=== PATIENT | female | born 1975 | race Caucasian/White ===

== ENCOUNTER → 2017-05-31 | Outpatient (REF) | payer BC ==
[2017-06-02 14:17] LABS: HPV HYBRID CAPTURE II Negative (Negative)
== END ==
LOC: M LAB REF 17:46
DX: Z12.4 Encounter for screening for malignant neoplasm of cervix (principal)
CPT/HCPCS: G0123

== ENCOUNTER → 2017-06-17 | Outpatient (CLI) | payer BC ==
[2017-06-17 12:15] LABS: FREE T4 1.01 NG/DL (0.76-1.46)
== END ==
LOC: M LAB 10:44
DX: Z12.31 Encounter for screening mammogram for malignant neoplasm of breast (principal); R92.8 Other abnormal and inconclusive findings on diagnostic imaging of breast; N83.202 Unspecified ovarian cyst, left side; R63.5 Abnormal weight gain; N92.0 Excessive and frequent menstruation with regular cycle
CPT/HCPCS: 76856

== ENCOUNTER → 2017-07-01 | Outpatient (CLI) | payer BC | LOC: M RAD 12:10 | DX: R92.0 Mammographic microcalcification found on diagnostic imaging of breast (principal) | CPT/HCPCS: 77065 ==

== ENCOUNTER → 2017-07-27 | Outpatient (CLI) | payer BC ==
[~2017-07-27] MED LIST: LIDOCAINE 1% MDV 20ML VIAL As Ordered
== END ==
LOC: M RADPRO 11:59
DX: D05.12 Intraductal carcinoma in situ of left breast (principal); R92.0 Mammographic microcalcification found on diagnostic imaging of breast (principal)
CPT/HCPCS: 19081

== ENCOUNTER → 2017-08-16 | Outpatient (CLI) | payer BC | LOC: M RADPRO 13:20 | DX: R92.1 Mammographic calcification found on diagnostic imaging of breast (principal); Z79.899 Other long term (current) drug therapy | CPT/HCPCS: 19081 ==

== ENCOUNTER → 2017-08-16 | Day surgery (SDC) | payer BC ==
[~2017-08-16] MED LIST changes: +BUPIVACAINE HCL 0.25% 30 ML VIAL As Ordered; +LIDOCAINE 1% SDV INJ 30 ML VIAL As Ordered
[2017-08-16 07:41] LABS: CONTROL LINE UCG INT CTR LINE PRESENT; URINE PREG TEST NEGATIVE (NEGATIVE)
[2017-08-16] MEDS: LIDOCAINE 5% (LIDODERM) PATCH TD (08:00)
[2017-08-16] MEDS: LR 1,000 ML IV (08:01)
== END | disposition home or self-care (01) ==
LOC: M SDC 06:56
DX: D05.12 Intraductal carcinoma in situ of left breast (principal); Z53.09 Procedure and treatment not carried out because of other contraindication
CPT/HCPCS: 84703

== ENCOUNTER → 2017-09-01 | Outpatient (CLI) | payer BC ==
[~2017-09-01] MED LIST changes: -BUPIVACAINE HCL 0.25% 30 ML VIAL As Ordered; -LIDOCAINE 1% SDV INJ 30 ML VIAL As Ordered; +LIDOCAINE 5% (LIDODERM) PATCH As Ordered; +LR 1,000 ML IV
[2017-09-01] MEDS: LIDOCAINE 5% (LIDODERM) PATCH TD (09:56)
[2017-09-01 10:24] LABS: CONTROL LINE UCG INT CTR LINE PRESENT; URINE PREG TEST NEGATIVE (NEGATIVE)
== END ==
LOC: M RADPRO 08:49
DX: D05.90 Unspecified type of carcinoma in situ of unspecified breast (principal); Z53.29 Procedure and treatment not carried out because of patient's decision for other reasons
CPT/HCPCS: 77065

== ENCOUNTER 2017-09-07 08:46 | Day surgery (SDC) | payer BC ==
[2017-09-07] MEDS ORDERED: LIDOCAINE 5% (LIDODERM) PATCH As Ordered (08:59)
[2017-09-07] MEDS ORDERED: LR 1,000 ML IV ×2 (09:15→16:45)
[2017-09-07] MEDS: LIDOCAINE 5% (LIDODERM) PATCH TD (09:19)
[2017-09-07 09:40] LABS: CONTROL LINE UCG INT CTR LINE PRESENT; URINE PREG TEST NEGATIVE (NEGATIVE)
[2017-09-07] MEDS ORDERED: fentaNYL 250 MCG/5 ML INJECTION (J3010) As Ordered (10:35)
[2017-09-07] MEDS ORDERED: PROPOFOL 200 MG/20 ML VIAL As Ordered (10:35)
[2017-09-07] MEDS ORDERED: MIDAZOLAM INJ 2 MG/2 ML VIAL (J2250) As Ordered (10:35)
[2017-09-07] MEDS ORDERED: ROCURONIUM BROMIDE 50 MG/5 ML VIAL As Ordered (10:35)
[2017-09-07] MEDS ORDERED: LIDOCAINE 2% INJ 100 MG/5 ML SDV (FOR ANES.) As Ordered (10:35)
[2017-09-07] MEDS ORDERED: LIDOCAINE 1% MDV 20ML VIAL As Ordered (11:03)
[2017-09-07] MEDS: LIDOCAINE 1% SDV INJ 30 ML VIAL As Ordered (12:24)
[2017-09-07] MEDS ORDERED: ONDANSETRON 4MG/2ML VIAL (J2405) As Ordered (13:21)
[2017-09-07] MEDS ORDERED: dexameTHASONE 4 MG/ML 1ML VIAL (J1100) As Ordered (13:21)
[2017-09-07] MEDS ORDERED: ePHEDrine SULFATE 25 MG/5 ML(5MG/ML) SYRINGE As Ordered (13:26)
[2017-09-07] MEDS ORDERED: GLYCOPYRROLATE INJ 0.2 MG/ML 2 ML VIAL As Ordered ×2 (13:27)
[2017-09-07] MEDS ORDERED: HYDROmorphone HCL 2 MG/ML 1ML VIAL (J1170) As Ordered (14:09)
[2017-09-07] MEDS: BUPIVACAINE LIPOSOME/PF 1.3% 20 ML VIAL (13.3MG/ML)(EXPAREL) As Ordered (16:03)
[2017-09-07] MEDS: BUPIVACAINE HCL 0.25% 30 ML VIAL As Ordered (16:03)
[2017-09-07] MEDS ORDERED: ACETAMINOPHEN TAB 650MG DOSE (2X325MG) PO (16:45)
[2017-09-07] MEDS ORDERED: fentaNYL 100 MCG/2 ML INJECTION (J3010) IV (16:45)
[2017-09-07] MEDS ORDERED: ONDANSETRON 4MG/2ML VIAL (J2405) IV (16:45)
[2017-09-07] MEDS ORDERED: NORCO, ANEXSIA 5/325MG TABLET (HYDROcodone/ACETAMINOPHEN) PO (16:45)
[2017-09-07] MEDS: PERCOCET 5MG/325MG TAB PO (17:25)
== END 2017-09-07 19:49 | disposition home or self-care (01) ==
LOC: M SDC 08:46
DX: D05.12 Intraductal carcinoma in situ of left breast (principal); D09.0 Carcinoma in situ of bladder
CPT/HCPCS: 19120

== ENCOUNTER → 2017-10-06 | Outpatient (CLI) | payer BC | LOC: M ONCR 13:56 | DX: D05.12 Intraductal carcinoma in situ of left breast (principal) | CPT/HCPCS: G0463 ==

== ENCOUNTER → 2017-11-03 | Outpatient (CLI) | payer BC | LOC: M RAD 14:19 | DX: C50.912 Malignant neoplasm of unspecified site of left female breast (principal) ==

== ENCOUNTER → 2018-11-24 | Outpatient (REF) | payer BC ==
[~2018-11-24] MED LIST changes: +AMBI10TA PO; -LIDOCAINE 1% MDV 20ML VIAL As Ordered; -LIDOCAINE 5% (LIDODERM) PATCH As Ordered; -LR 1,000 ML IV; +MULT1TAB10 PO
[2018-11-24 12:47] LABS: BASO % 0.8 % (0.0-1.0); EOS # 0.2 10^3/uL (0.0-0.50); HEMATOCRIT 32.8 % (36.0-47.0); HEMOGLOBIN 10.1 g/dl (12.0-15.5); LYMPH # 1.2 10^3/uL (1.5-4.5); LYMPH % 32.9 % (24.0-44.0); MEAN CORPUSCULAR HEMOGLOBIN 27.2 pg (27.0-33.0); MEAN CORPUSCULAR HGB CONC 30.8 g/dl (32.0-36.5); MEAN CORPUSCULAR VOLUME 88.2 fl (80.0-96.0); MONO # 0.3 10^3/uL (0.0-0.8); MONO % 8.1 % (0.0-5.0); NEUTROPHILS # 1.9 10^3/uL (1.8-7.7); NEUTROPHILS % 52.6 % (36.0-66.0); PLATELET COUNT, AUTOMATED 290 10^3/uL (150-450); RED BLOOD COUNT 3.72 10^6/uL (4.00-5.40); WHITE BLOOD COUNT 3.6 10^3/uL (4.0-10.0)
[2018-11-24 13:19] LABS: ALBUMIN 3.5 GM/DL (3.2-5.2); ALT/SGPT 16 U/L (12-78); BILIRUBIN,TOTAL 0.4 MG/DL (0.2-1.0); BLOOD UREA NITROGEN 15 MG/DL (7-18); CALCIUM LEVEL 8.9 MG/DL (8.5-10.1); CARBON DIOXIDE LEVEL 28 MEQ/L (21-32); CHLORIDE LEVEL 111 MEQ/L (98-107); CHOLESTEROL LEVEL 191 MG/DL (<200); CHOLESTEROL RISK RATIO 2.938 (<5); CREATININE FOR GFR 0.77 MG/DL (0.55-1.30); FREE T4 1.05 NG/DL (0.76-1.46); GLOMERULAR FILTRATION RATE > 60.0 (>58); GLUCOSE, FASTING 87 MG/DL (70-100); HDL CHOLESTEROL 65 MG/DL (>40); LDL CHOLESTEROL 110 MG/DL (<100); NON-HDL-C 126 MG/DL; POTASSIUM SERUM 4.1 MEQ/L (3.5-5.1); SODIUM LEVEL 143 MEQ/L (136-145); TOTAL PROTEIN 7.1 GM/DL (6.4-8.2); TRIGLYCERIDES LEVEL 79 MG/DL (<150)
[2018-11-24 13:24] LABS: TOTAL 25(OH) VITAMIN D 64.4 NG/ML (30.0-100.0)
== END ==
LOC: M LABDRAW1 12:09
PROVIDERS: ATTEND Family Medicine
DX: Z13.29 Encounter for screening for other suspected endocrine disorder (principal); Z13.0 Encounter for screening for diseases of the blood and blood-forming organs and certain disorders involving the immune mechanism; Z13.220 Encounter for screening for lipoid disorders; Z85.3 Personal history of malignant neoplasm of breast

== ENCOUNTER → 2018-12-15 | Outpatient (CLI) | payer BC, OTHER | LOC: M LAB 10:25 | PROVIDERS: ATTEND Nurse Practitioner | DX: E55.9 Vitamin D deficiency, unspecified (principal) ==

== ENCOUNTER → 2018-12-15 | Outpatient (CLI) | payer BC, OTHER ==
[2018-12-15 12:42] LABS: FOLATE 21.4 NG/ML
== END ==
LOC: M LAB 10:21
PROVIDERS: ATTEND Family Medicine
DX: D64.9 Anemia, unspecified (principal)

== ENCOUNTER → 2019-11-28 | Outpatient (REF) | payer BC, OTHER | LOC: M LAB REF 08:41 | PROVIDERS: ATTEND Family Medicine | DX: R30.0 Dysuria (principal) ==

== ENCOUNTER → 2020-04-19 | Outpatient (REF) | payer SELFPAY | LOC: EDSTATUS 09:15 → M LABSMTC 09:25 | PROVIDERS: ATTEND Pediatrics | DX: Z20.828 Contact with and (suspected) exposure to other viral communicable diseases (principal) ==

== ENCOUNTER → 2020-06-06 | Outpatient (CLI) | payer BC, OTHER ==
[2020-06-06 12:27] LABS: EOS # 0.2 10^3/uL (0.0-0.5); EOS % 4.1 % (0.0-3.0); HEMATOCRIT 37.9 % (36.0-47.0); HEMOGLOBIN 11.9 g/dl (12.0-15.5); LYMPH # 1.2 10^3/uL (1.5-5.0); LYMPH % 27.9 % (24.0-44.0); MEAN CORPUSCULAR HEMOGLOBIN 28.9 pg (27.0-33.0); MEAN CORPUSCULAR HGB CONC 31.4 g/dl (32.0-36.5); MONO # 0.3 10^3/uL (0.0-0.8); MONO % 7.7 % (2.0-8.0); NEUTROPHILS # 2.4 10^3/uL (1.5-8.5); NEUTROPHILS % 58.6 % (36.0-66.0); PLATELET COUNT, AUTOMATED 236 10^3/uL (150-450); RED BLOOD COUNT 4.12 10^6/uL (4.00-5.40); WHITE BLOOD COUNT 4.2 10^3/uL (4.0-10.0)
[2020-06-06 12:29] LABS: INR 0.93; PROTHROMBIN TIME 12.7 SECONDS (12.5-14.3)
[2020-06-06 14:39] LABS: FOLLICLE STIMULATING HORMONE 55.7 mIU/mL; HCG, SERUM QUANTITATIVE < 1.0 MIU/ML; LUTEINIZING HORMONE 65.5 mIU/mL; PROLACTIN 9.7 NG/ML; THYROID STIMULATING HORMONE 0.725 uIU/ML (0.358-3.740)
[2020-06-06 15:06] LABS: CA 125 24.7 U/ML (<30.2)
[2020-06-08 15:09] LABS: F8 ACTIVITY FOR F8 PANEL 116 % (56-140); F8 ACTIVITY vWB FOR F8 PANEL 119 % (50-200); F8 ANTIGEN FOR F8 PANEL 149 % (50-200)
== END ==
LOC: M PLALAB 09:46
PROVIDERS: ATTEND Obstetrics & Gynecology
DX: D39.11 Neoplasm of uncertain behavior of right ovary (principal); D25.9 Leiomyoma of uterus, unspecified; N92.0 Excessive and frequent menstruation with regular cycle

== ENCOUNTER → 2020-11-18 | Outpatient (REF) | payer BC, OTHER | LOC: M LAB REF 17:42 | PROVIDERS: ATTEND Family Medicine | DX: N39.41 Urge incontinence (principal) ==

== ENCOUNTER → 2020-12-24 | Outpatient (CLI) | payer BC, OTHER ==
--- NOTE | 2020-12-24 14:56 | REP ---
INDICATION: HTN. COMPARISON: Comparison is made with pelvic sonography and MRI scanning dated March 06, 2020 and April 28, 2020 respectively. TECHNIQUE: Urinary tract sonography. Renal artery Doppler assessment FINDINGS: . scanning of the level of the urinary bladder demonstrates a complex cystic structure is superior and to the left of the urinary bladder measuring 7.1 x 5.6 x 5.6 cm. Complex ovarian cyst suspected. Smaller cysts were noted previously. No bladder mass lesion is observed. Renal cortical echogenicity pattern is normal bilaterally and contours are smooth. There is no evidence of hydronephrosis, cyst, mass, or calculus in either kidney. The right kidney measures 10.3 x 3.5 x 5.4 cm. Left renal dimensions are 11.9 x 5.7 x 6.0 cm. Renal artery Doppler: Peak systolic flow velocity in the abdominal aorta at the level of the main renal arteries is normal measured at 99 centimeters/second. Peak systolic flow velocity in the right main renal artery is recorded at 131 centimeters/second and that in the left is recorded at 114 centimeters/second. These values are normal. Renal to aortic flow velocity ratios are therefore normal, 1.3 on the right and 1.2 on the left. Resistive indices and acceleration times are measured in the intralobar arteries of the upper, mid, and lower of each kidney in these values are normal bilaterally. IMPRESSION: There is a complex 7.1 cm cystic lesion in the pelvis consistent with a complex ovarian cystic mass. Otherwise negative urinary tract sonography. There is no Doppler evidence to suggest renal artery stenosis. <Electronically signed by Stuart Beasley > 12/24/20 [id number]
== END ==
LOC: M RAD 07:39
PROVIDERS: ATTEND Family Medicine
DX: I10 Essential (primary) hypertension (principal)

== ENCOUNTER → 2021-01-13 | Outpatient (CLI) | payer BC, OTHER ==
[2021-01-13 13:23] LABS: BASO # 0.1 10^3/uL (0.0-0.2); BASO % 1.1 % (0.0-1.0); EOS # 0.1 10^3/uL (0.0-0.5); EOS % 2.7 % (0.0-3.0); HEMATOCRIT 38.3 % (36.0-47.0); HEMOGLOBIN 12.6 g/dl (12.0-15.5); LYMPH # 1.3 10^3/uL (1.5-5.0); LYMPH % 29.6 % (24.0-44.0); MEAN CORPUSCULAR HEMOGLOBIN 29.3 pg (27.0-33.0); MEAN CORPUSCULAR HGB CONC 32.9 g/dl (32.0-36.5); MEAN CORPUSCULAR VOLUME 89.1 fl (80.0-96.0); MONO # 0.4 10^3/uL (0.0-0.8); MONO % 7.9 % (2.0-8.0); NEUTROPHILS # 2.6 10^3/uL (1.5-8.5); PLATELET COUNT, AUTOMATED 257 10^3/uL (150-450); WHITE BLOOD COUNT 4.4 10^3/uL (4.0-10.0)
[2021-01-13 14:31] LABS: ALBUMIN 3.8 GM/DL (3.2-5.2); ALT/SGPT 14 U/L (12-78); BILIRUBIN,TOTAL 0.4 MG/DL (0.2-1.0); BLOOD UREA NITROGEN 13 MG/DL (7-18); CALCIUM LEVEL 9.2 MG/DL (8.5-10.1); CARBON DIOXIDE LEVEL 26 MEQ/L (21-32); CHLORIDE LEVEL 107 MEQ/L (98-107); CHOLESTEROL LEVEL 211 MG/DL (<200); CHOLESTEROL RISK RATIO 2.971 (<5); CREATININE FOR GFR 0.77 MG/DL (0.55-1.30); FERRITIN 15 NG/ML (8-252); FREE T4 1.03 NG/DL (0.76-1.46); GLOMERULAR FILTRATION RATE > 60.0 (>58); GLUCOSE, FASTING 91 MG/DL (70-100); HDL CHOLESTEROL 71 MG/DL (>40); IRON (FE) 72 UG/DL (50-170); LDL CHOLESTEROL 128 MG/DL (<100); NON-HDL-C 140 MG/DL; PERCENT SATURATION 21.1 % (13.2-45.0); POTASSIUM SERUM 4.1 MEQ/L (3.5-5.1); SODIUM LEVEL 139 MEQ/L (136-145); THYROID STIMULATING HORMONE 0.795 uIU/ML (0.358-3.740); TOTAL 25(OH) VITAMIN D 18.4 NG/ML (30.0-100.0); TOTAL IRON BINDING CAPACITY 342 UG/DL (250-450); TOTAL PROTEIN 7.5 GM/DL (6.4-8.2); TRIGLYCERIDES LEVEL 61 MG/DL (<150); VITAMIN B12 LEVEL 347 PG/ML (247-911)
[2021-01-14 16:13] LABS: Lyme Disease IgG/IgM Antibodie <0.91 ISR (0.00-0.90); Lyme Disease IgM Ab Quantitati <0.80 index (0.00-0.79)
== END ==
LOC: M PLALAB 10:51
PROVIDERS: ATTEND Family Medicine
DX: Z13.0 Encounter for screening for diseases of the blood and blood-forming organs and certain disorders involving the immune mechanism (principal); Z13.29 Encounter for screening for other suspected endocrine disorder; Z13.220 Encounter for screening for lipoid disorders; I10 Essential (primary) hypertension; R53.83 Other fatigue; A69.20 Lyme disease, unspecified

== ENCOUNTER → 2021-02-28 | Outpatient (CLI) | payer BC, OTHER ==
[~2021-02-28] MED LIST changes: +ERGO500029 PO; +HYDR-3363 PO; +LISI20TA33 PO; +THERTAB52 PO; +VALS1TAB67 PO; +VITA200016 PO; +VYVA40CA3 PO; +ZOLP12.518 PO
== END ==
LOC: M LABSMTC 09:49
PROVIDERS: ATTEND Anesthesiology
DX: Z01.812 Encounter for preprocedural laboratory examination (principal); Z20.822 Contact with and (suspected) exposure to COVID-19

== ENCOUNTER 2021-03-05 10:15 | Day surgery (SDC) | payer BC, OTHER ==
[~2021-03-05] VITALS: Ht 165.1 cm; Wt 81.2 kg
[~2021-03-05 10:15] MED LIST changes: +NS 1,000 ML IV ONE
--- OUTSIDE RECORDS SUMMARY | 2021-03-05 10:23 | CCD ---
Continuity of Care Document (CCD) Created on: 03/02/2021 Kayla Partida External Reference #: [id number] : [id number] Sex: Female Author Author Kayla WEEKS D.O. Organization Unknown Address [address] [place] [address] Phone [phone] Care Team Providers [facility] Techn[facility] Name Role Phone Leona Weeks D.O. AUTM Gallo Linn MD AUTM [phone] Mason Hernandez M.D. AUTM [phone] Stefano Varghese M.D. AUTM [phone] Problems Active Problems Provider Date Disorder of respiratory system Leona Weeks D.O. On set: 08/08/2014 Malaise and fatigue Leona Weeks D.O. Onset: 2014 Abnormal weight gain Leona Weeks D.O. Onset: 08/08 Headache Leona Weeks D.O. Onset: 2014 Insomnia Leona Weeks D.O. Onset: 2014 Hypersomnia Leona Weeks D.O. Onset: 2014 Disorder of soft tissue Leona Weeks D.O. Onset: Constipation Leona Weeks D.O. Onset: 2014 Chronic fatigue syndrome Leona Weeks D.O. Onset: 1 04/20/2014 pTis: Ductal carcinoma in situ (breast) Leona Weeks D.O. Onset: 08/29/2017 Note: left breast Attention deficit hyperactivity disorder, predominantl y inattentive type MANOJ Green Onset: 07/28/2020 Social History Type Date Description Comments Sex Unknown ETOH Use Currently consumes alcohol 2-3 d rinks on the weekend Tobacco Use Start: Unknown Patient has never smoked Recreational Drug Use Denies Drug Use Smoking Status Reviewed: 01/06/21 Patient has never smoked Exercise Type/Frequency weights and cardio 2-3 t imes per week Allergies and adverse reactions Active Allergies Criticality Reaction | Severity Comments Date Lisinopril Unable to assess criticality Hives 01/28/2021 Inactive Allergies NKDA Unable to assess criticality 08/08/2014 Medications Active Medications SIG Qnty Indications Ordering Provide r Date Vitamin B-12 Natural 500mcg Tablets 1 by mouth every day 90tabs D51.9 Leona Weeks D.O. 01/28/2021 Vitamin D (Ergocalciferol) 1.25mg (33746 Ut) Capsules 1 capsule weekly for 12 weeks 12caps E55.9 Mark Weeks D.O. 01/28/2021 Vitamin D3 50mcg (2000 Ut) Capsule s 1 by mouth every day 90caps E55.9 Leona Weeks D.O. 01/28 Valsartan 160mg Tablets 1 by mouth every day 90tabs Leona Weeks D.O. 01/28 Vyvanse 40mg Capsules take one capsule every morning by mouth istop: [id number] 30caps F90.0 Kiera Bishop.O. 08/25/2020 Hydroxyzine HCL 25mg Tablets 1-2 tablet by mouth every night 90tabs Kiera Madison.O. 03/2021 Zolpidem Tartrate ER 12.5mg Tablet s ER take one tablet by mouth every day before bed maximum daily dose = 1 tablet istop: [id number] 30tabs G47.00 Juan F MadisonO. 03/3 Fluticasone Propionate Nasal [place] 50mcg/Act Suspension two sprays each nostril once daily 29.7ml H65.02 Kiera Lott.O. 04/17/2019 Colace 100mg Capsules 1 by mouth every day as needed 90caps Leona Weeks D.O. 12/15 History Medications Lisinopril 20mg Tablets 1 by mouth every day 90tabs I10 Leona Weeks D.O. 01/06 - 01/28/2021 Lisinopril 10mg Tablets 1 by mouth every day 30tabs I10 Leona Weeks D.O. 12/09 - 01/06/2021 Macrobid 100mg Capsules take one capsule by mouth twice a day for 7 days 14caps Leona martinez D.O. 11/21/2020 - 12/09/2020 Immunizations Description No Information Available Vital Signs Date Vital Result Comment 03/02/2021 1:00pm BP Systolic 136 mmHg BP Diastolic 72 mmHg Height 65 inches 5'5" Weight 182.50 lb BMI (Body Mass Index) 30.4 kg/m2 Heart Rate 72 /min Respiratory Rate 18 /min Body Temperature 98.6 F O2 % BldC Oximetry 100 % [place] Body Weight 125 lb 01/28/2021 1:36pm BP Systolic 130 mmHg BP Diastolic 78 mmHg Height 65 inches 5'5" Weight 178.00 lb BMI (Body Mass Index) 29.6 kg/m2 Heart Rate 75 /min Respiratory Rate 18 /min Body Temperature 98.3 F O2 % BldC Oximetry 99 % [place] Body Weight 125 lb Results Test Acquired Date Facility Test Result H/L Range Note Coronavirus 2019 Nasopharygeal 02/28/2021 [facility] Outpa tient Testing (Registration) [address] [place] [address] [phone] Coronavirus 2019 Nasopharygeal ASSAY INFORMATIO <SEE N OTE> 1 CBC With Differential 01/13/[address] [id number] [phone] White Blood Count 4.4 10 Normal 4.0-10.0 Red Blood Count 4.30 10 Normal 4.00-5.40 Hemoglobin 12.6 g/dL Normal 12.0-15.5 Hematocrit 38.3 % Normal 36.0-47.0 Mean Corpuscular Volume 89.1 fl Normal 80.0-96.0 Mean Corpuscular Hemoglobin 29.3 pg Normal 27.0-33.0 Mean Corpuscular HGB Conc 32.9 g/dL Normal 32.0-36.5 Red Cell Distribution Width 12.6 % Normal 11.5-14.5 Platelet Count, Automated 257 10 Normal 150-450 Neutrophils % 58.0 % Normal 36.0-66.0 Lymph % 29.6 % Normal 24.0-44.0 Castro % 7.9 % Normal 2.0-8.0 Eos % 2.7 % Normal 0.0-3.0 Baso % 1.1 % High 0.0-1.0 Immature Granulocyte % 0.7 % Normal 0-3.0 Nucleated Red Blood Cell % 0.0 % Normal 0-0 Neutrophils # 2.6 10 Normal 1.5-8.5 Lymph # 1.3 10 Low 1.5-5.0 Castro # 0.4 10 Normal 0.0-0.8 Eos # 0.1 10 Normal 0.0-0.5 Baso # 0.1 10 Normal 0.0-0.2 Comprehensive Metabolic Profil 01/13/[address] [address] [phone] Glucose, Fasting 91 mg/dL Normal 70-100 Blood Urea Nitrogen 13 mg/dL Normal 7-18 Creatinine For GFR 0.77 mg/dL Normal 0.55-1.30 Glomerular Filtration Rate > 60.0 Normal >58 2 Sodium Level 139 mEq/L Normal 136-145 Potassium Serum 4.1 mEq/L Normal 3.5-5.1 Chloride Level 107 mEq/L Normal 98-107 Carbon Dioxide Level 26 mEq/L Normal 21-32 Anion Gap 6 mEq/L Low 8-16 Calcium Level 9.2 mg/dL Normal 8.5-10.1 Ast/Sgot 12 U/L Normal 7-37 Alt/SGPT 14 U/L Normal 12-78 Alkaline Phosphatase 48 U/L Normal 45-117 Bilirubin,Total 0.4 mg/dL Normal 0.2-1.0 Total Protein 7.5 GM/DL Normal 6.4-8.2 Albumin 3.8 GM/DL Normal 3.2-5.2 Albumin/Globulin Ratio 1.0 Low 1.2-2.2 Lipid Panel 01/13/2021 [facility] nter [address] [place] [address] [phone] Triglycerides Level 61 mg/dL Normal <150 Cholesterol Level 211 mg/dL High <200 HDL Cholesterol 71 mg/dL Normal >40 LDL Cholesterol 128 mg/dL High <100 Non-HDL-C 140 mg/dL Normal Cholesterol Risk Ratio 2.971 Normal <5 Laboratory test finding 01/13/[address] [address] [phone] Total 25(Oh) Vitamin D 18.4 NG/ML Low 30.0-100. 0 Lyme Disease SCRN With Confirm 01/13/[address] [address] [phone] Lyme Disease IgG/IgM Antibodie <0.91 ISR Normal 0 .00-0.90 3 Lyme Disease IgM Ab Quantitati <0.80 index Normal 0.00-0.79 4 Laboratory test finding 01/13/[address] [address] [phone] Ferritin 15 NG/ML Normal 8-252 Vitamin B12 Level 347 pg/mL Normal 247-911 5 Total Iron Binding Capacit 01/13/[address] [address] [phone] Iron (Fe) 72 g/dL Normal 50-170 Total Iron Binding Capacity 342 g/dL Normal 250-450 Percent Saturation 21.1 % Normal 13.2-45.0 Laboratory test finding 01/13/[address] [address] [phone] Thyroid Stimulating Hormone 0.795 uIU/ML Normal 0. 358-3.740 Free T4 1.03 ng/dL Normal 0.76-1.46 Inhouse Ua 11/18/2020 Inhouse Inhouse Leukocytes neg Inhouse Nitrite neg Inhouse Urobilinogen neg Inhouse Protein neg Inhouse PH 6 Inhouse Hemoglobin neg Inhouse Specific [place] 0.010 Inhouse Ketones neg Inhouse Bilirubin neg Inhouse Glucose neg Laboratory test finding 11/18/[address] [address] [phone] Urine Culture FULL REPORT IN L <SEE NOTE> Normal 6 1 ASSAY INFORMATION: Real Time RT-PCR NOTE: The COVID-19 assay has been cleared by the U.S. Food and Drug Administration under the Emergency Use Authorization (EUA). [facility] are designated as high complexity laboratories by the Clinical Laboratory Improvement Amendments of 1988(CLIA) and are qualified to perform this test. Not Detected 2 Units are mL/min/1.73 m2 Chronic Kidney Disease Staging per NKF: Stage I & II GFR >=60 Normal to Mildly Decreased Stage III GFR 30-59 Moderately Decreased Stage IV GFR 15-29 Severely Decreased Stage V GFR <15 Very Little GFR Left ESRD GFR <15 on CREDIT REVIEW ANALYST 3 Negative <0.91 Equivocal 0.91 - 1.09 Positive >1.09 4 Negative <0.80 Equivocal 0.80 - 1.19 Positive >1.19 . IgM levels may peak at 3-6 weeks post infection, then gradually decline. Performed at: RN - [facility] [address] [id number] Wrapping Machine Tender: Lissy Pacheco MD, Phone: [phone] VITAMIN B12 NORMAL RANGE NORMAL 247 - 911 PG/ML INDETERMINATE 211 - 246 PG/ML DEFICIENT LESS THAN 211 PG/ML 6 FULL REPORT IN LAB NOTES ([facility] and [facility]). ORGANISM 1: ESCHERICHIA COLI COLONY COUNT >100,000 ORGANISM 1: ESCHERICHIA COLI ESCHERICHIA COLI: REACTION TRIMETHOPRIM/SULFAMETHOXAZOLE IV 160mg TMP & 800mg SMXq6h <=20 S TRIMETHOPRIM/SULFAMETHOXAZOLE PO Bactrim DS Bid <=20 S AMPICILLIN IV 500mg q6h <=2 S AMPICILLIN PO 500mg q6h fasting <=2 S GENTAMICIN IV 80mg q8h <=1 S NITROFURANTOIN PO 100mg BID <=16 S CEFAZOLIN IV 1gm q8h <=4 S LEVOFLOXACIN IV 500mg qd <=0.12 S LEVOFLOXACIN PO 250mg qd <=0.12 S LEVOFLOXACIN PO 500mg qd <=0.12 S TOBRAMYCIN IV 80mg q8h <=1 S CEFTRIAXONE IV 1gm q24h <=1 S CEFTAZIDIME IV 1gm q8h <=1 S AMPICILLIN/SULBACTAM IV 1.5g q6h <=2 S PIPERACILLIN/TAZOBACTAM IV 2.25 gm q6h <=4 S AZTREONAM IV 1gm q8h <=1 S ERTAPENEM IV 1gm qd <=0.5 S MEROPENEM IV 1 gm q8h <=0.25 S MEROPENEM IV 500 mg q8h <=0.25 S TIGECYCLINE IV 50mg q12h <=0.5 S CEFEPIME IV 1 gm q12h <=1 S CEFEPIME IV 2 gm q12h <=1 S EXTD BRD SPCTRM BETA LACTAMASE IV NEGATIVE FOR ESBL Procedures Date Code Description Status 03/02/2021 09129 Office/Outpatient Established Lo w MDM 20-29 Min Completed 01/28/2021 49115 Office/Outpatient Established Mo d MDM 30-39 Min Completed 01/06/2021 72036 Office/Outpatient Established Mo d MDM 30-39 Min Completed 12/09/2020 41249 Office/Outpatient Established Lo w MDM 20-29 Min Completed 11/18/2020 98806 Preventive Visit Est 40-64 Yrs C ompleted 11/18/2020 54725 Office/Outpatient Established Lo w MDM 20-29 Min Completed Medical Devices Description No Information Available Encounters Type Date Location Provider Dx Diagnosis Office Visit 03/02/2021 1:00p [facility] Jasvir Weeks D.OEmperatriz I10 Essential (primary) hyperten eleni E55.9 Vitamin D deficiency, unspec ified D51.9 Vitamin B12 deficiency anemi a, unspecified F90.0 Attn-defct hyperactivity dis order, predom inattentive type Z85.3 Personal history of malignan t neoplasm of breast N83.202 Unspecified ovarian cyst, le ft side Office Visit 01/28/2021 1:30p [facility] Leona Weeks D.OEmperatriz L50.0 Allergic urticaria I10 Essential (primary) hyperten eleni E55.9 Vitamin D deficiency, unspec ified D51.9 Vitamin B12 deficiency anemi a, unspecified Office Visit 01/06/2021 2:40p [facility] Leona Weeks, D.O. I10 Essential (primary) hyperten eleni R53.83 Other fatigue F90.0 Attn-defct hyperactivity dis order, predom inattentive type F32.81 Premenstrual dysphoric disor bobby Z85.3 Personal history of malignan t neoplasm of breast N83.202 Unspecified ovarian cyst, le ft side R68.82 Decreased libido Office Visit 12/09/2020 1:30p [facility] Jasvir Weeks D.O. I10 Essential (primary) hyperten eleni R53.83 Other fatigue Office Visit 11/18/2020 4:00p [facility] w Jasvir Weeks D.O. Z00.01 Encounter for general adult medical exam w abnormal findings F90.0 Attn-defct hyperactivity dis order, predom inattentive type F32.81 Premenstrual dysphoric disor bobby G47.00 Insomnia, unspecified Z85.3 Personal history of malignan t neoplasm of breast Z12.11 Encounter for screening for malignant neoplasm of colon R03.0 Elevated blood-pressure read ing, w/o diagnosis of htn Z13.220 Encounter for screening for lipoid disorders Z13.29 Encounter for screening for oth suspected endocrine disorder Z13.0 Encntr screen for dis of the bld/bld-form org/immun mechnsm N39.41 Urge incontinence Assessments Date Code Description Provider 03/02/2021 I10 Essential (primary) hypertension Leona Weeks D.OEmperatriz 03/02/2021 E55.9 Vitamin D deficiency, unspecifie d Leona Weeks D.O. 03/02/2021 D51.9 Vitamin B12 deficiency anemia, u nspecified Leona Hernandez D.OEmperatriz 03/02/2021 F90.0 Attention-deficit hy peractivity disorder, predominantly inattentive type Leona Weeks D.O. 03/02/2021 Z85.3 Personal history of malignant ne oplasm of breast Leona Hernandez D.OEmperatriz 03/02/2021 N83.202 Unspecified ovarian cyst, left s arnoldo Leona Weeks D.O. 01/28/2021 L50.0 Allergic urticaria Leona Lemon -Mary, D.O. 01/28/2021 I10 Essential (primary) hypertension Leona Lemon-Mary, D.O. 01/28/2021 E55.9 Vitamin D deficiency, unspecifie d Leona Lemon-Mary, D.O. 01/28/2021 D51.9 Vitamin B12 deficiency anemia, u nspecified Leona Lemon- Mary, D.O. 01/06/2021 I10 Essential (primary) hypertension Leona Gutierrezno-Mary, D.O. 01/06/2021 R53.83 Other fatigue Leonamariya Lemon-Zelaya rber, D.O. 01/06/2021 F90.0 Attention-deficit hy peractivity disorder, predominantly inattentive type Leona Ion-Mary, D.O. 01/06/2021 F32.81 Premenstrual dysphoric disorder Leona Ion-Mary, D.O. 01/06/2021 Z85.3 Personal history of malignant ne oplasm of breast Leonamariya BloomIonMaico Hernandez, D.O. 01/06/2021 N83.202 Unspecified ovarian cyst, left s arnoldo Leonamariya BloomIon-Mary, D.O. 01/06/2021 R68.82 Decreased libido Leonamariya RogersS camden, D.O. 12/09/2020 I10 Essential (primary) hypertension Leonamariya Lemon-Mary, D.O. 12/09/2020 R53.83 Other fatigue Leonamariya Gutierrezno-Zelaya rber, D.O. 11/18/2020 Z00.01 Encounter for genera l adult medical examination with abnormal findings Leona IonWillian, D.O. 11/18/2020 F90.0 Attention-deficit hy peractivity disorder, predominantly inattentive type Leona Ion-Mary, D.O. 11/18/2020 F32.81 Premenstrual dysphoric disorder Leona Gutierrezno-Mary, D.O. 11/18/2020 G47.00 Insomnia, unspecified Leona Ku D.O. 11/18/2020 Z85.3 Personal history of malignant ne oplasm of breast Leona Hernandez D.O. 11/18/2020 Z12.11 Encounter for screening for eagle gnant neoplasm of colon Leona Weeks D.O. 11/18/2020 R03.0 Elevated blood-press ure reading, without diagnosis of hypertension Leona Weeks D.O. 11/18/2020 Z13.220 Encounter for screening for lipo id disorders Leona Hernandez D.O. 11/18/2020 Z13.29 Encounter for screen ing for other suspected endocrine disorder Leona Weeks D.O. 11/18/2020 Z13.0 Encounter for screen ing for diseases of the blood and blood- forming organs and certain disorders involving the immune mechanism Leona Weeks D.O. 11/18/2020 N39.41 Urge incontinence Leona Hernandez D.O. Plan of Treatment Future Appointment(s):* 06/12/2021 1:00 pm - Leona Weeks D.O. at [facility] 03/02/2021 - Leona Weeks D.O.* I10 Essential (primary) hypertension* Comments:* BP improved and no rash with valsartan * E55.9 Vitamin D deficiency, unspecified* Comments:* continue vitamin D * D51.9 Vitamin B12 deficiency anemia, unspecified* Comments:* continue B12 * F90.0 Attention-deficit hyperactivity disorder, predominantly inattentive type * Comments:* stable on vyvanse * Follow up:* 3 months * Z85.3 Personal history of malignant neoplasm of breast * N83.202 Unspecified ovarian cyst, left side* Comments:* There is a 7.1 cm complex cystic mass on the left ovary. She is going to be scheduled for surgery with Dr. Hernandez at the end of March. He suspects endometriosis. Functional Status Description No Information Available Mental Status Description No Information Available Referrals Refer to Reason for Referral Status Appt Date Mason Hernandez M.D. This is a mutual patient who underwent hysterectomy in 06/2020 and now presents with 7.1 cm complex ovarian mass. She has a history of breast cancer as well. Please evaluate and treat. [facility]osed [facility] [address] [place] [address] [phone] Stefano Varghese M.D. This is a 45 year old female with history of breast cancer. She has never had colonoscopy and given her history, screening at 45 seems prudent. Please evaluate and treat. Sent 12/29/2020 [address] [place] [address] [phone]
--- OUTSIDE RECORDS SUMMARY | 2021-03-05 10:23 | CCD ---
Continuity of Care Document (CCD) Created on: 03/02/2021 Kayla Partida External Reference #: [id number] : 1975 Sex: Female Author Author Kayla WEEKS D.O. Organization Unknown Address [address] [facility] [address] [place] [address] Phone [phone] Care Team Providers Care Retoucher Photoengraving Name Role Phone Leona Weeks D.O. AUTM Gallo Linn MD AUTM [phone] Mason Hernandez M.D. AUTM [phone] Stefano Varghese M.D. AUTM [phone] Problems Active Problems Provider Date Disorder of [...] Weeks D.O. 01/28/2021 Vitamin D (Ergocalciferol) 1.25mg (07380 Ut) Capsules 1 capsule weekly for 12 weeks 12caps E55.9 Mark Weeks D.O. 01/28/2021 Vitamin D3 50mcg (2000 Ut) Capsule s 1 by mouth every day 90caps E55.9 Leona Weeks D.O. 01/28 Valsartan 160mg Tablets 1 by mouth every day 90tabs Leona Weeks D.O. 01/28 Vyvanse 40mg Capsules take one capsule every morning by mouth istop: [id number] 30caps F90.0 Kiera Bishop.O. 08/25/2020 Hydroxyzine HCL 25mg Tablets 1-2 tablet by mouth every night 90tabs Kiera Madison.O. 03/2021 Zolpidem Tartrate ER 12.5mg Tablet s ER take one tablet by mouth every day before bed maximum daily dose = 1 tablet istop: [id number] 30tabs G47.00 Juan F MadisonO. 03/3 Fluticasone Propionate Nasal [place] 50mcg/Act Suspension two sprays each nostril once [...] Available Vital Signs Date Vital Result Comment 01/28/2021 1:36pm BP Systolic 130 mmHg BP Diastolic 78 mmHg Height 65 inches 5'5" Weight 178.00 lb BMI (Body Mass Index) 29.6 kg/m2 Heart Rate 75 /min Respiratory Rate 18 /min Body Temperature 98.3 F O2 % BldC Oximetry 99 % [place] Body Weight 125 lb 01/06/2021 2:33pm BP Systolic 140 mmHg BP Diastolic 90 mmHg Height 65 inches 5'5" Weight 181.38 lb BMI (Body Mass Index) 30.2 kg/m2 Heart Rate 78 /min Respiratory Rate 14 /min Body Temperature 98.5 F O2 % BldC Oximetry 99 % [place] Body Weight 125 lb Results Test Acquired Date Facility Test Result H/L Range Note Coronavirus 2019 Nasopharygeal 02/28/2021 [facility] Outpa tient Testing (Registration) [address] [place] [address] [id number] [phone] Coronavirus 2019 Nasopharygeal ASSAY INFORMATIO <SEE N OTE> 1 CBC With Differential 01/13/[address] [id number] [phone] White Blood Count 4.4 10 Normal 4.0-10.0 [...] 36.0-66.0 Lymph % 29.6 % Normal 24.0-44.0 [place] % 7.9 % Normal 2.0-8.0 Eos % 2.7 % Normal 0.0-3.0 Baso % 1.1 % High 0.0-1.0 Immature Granulocyte % 0.7 % Normal 0-3.0 Nucleated Red Blood Cell % 0.0 % Normal 0-0 Neutrophils # 2.6 10 Normal 1.5-8.5 Lymph # 1.3 10 Low 1.5-5.0 [place] # 0.4 10 Normal 0.0-0.8 Eos # 0.1 10 Normal 0.0-0.5 Baso # 0.1 10 Normal 0.0-0.2 Comprehensive Metabolic Profil 01/13/[address] [address] [phone] Glucose, Fasting 91 mg/dL Normal 70-100 Blood [...] Ratio 1.0 Low 1.2-2.2 Lipid Panel 01/13/2021 [facility]ter [address] [place] [address] [phone] Triglycerides Level 61 mg/dL Normal <150 Cholesterol Level 211 mg/dL High <200 HDL Cholesterol 71 mg/dL Normal >40 LDL Cholesterol 128 mg/dL High <100 Non-HDL-C 140 mg/dL Normal Cholesterol Risk Ratio 2.971 Normal <5 Laboratory test finding 01/13/[address] [address] [phone] Total 25(Oh) Vitamin D 18.4 NG/ML Low 30.0-100. 0 Lyme Disease SCRN With Confirm 01/13/[address] [address] [phone] Lyme Disease IgG/IgM Antibodie <0.91 ISR Normal 0 .00-0.90 3 Lyme Disease IgM Ab Quantitati <0.80 index Normal 0.00-0.79 4 Laboratory test finding 01/13/[address] [address] [phone] Ferritin 15 NG/ML Normal 8-252 Vitamin B12 Level 347 pg/mL Normal 247-911 5 Total Iron Binding Capacit 01/13/[address] [address] [phone] Iron (Fe) 72 g/dL Normal 50-170 Total Iron Binding Capacity 342 g/dL Normal 250-450 Percent Saturation 21.1 % Normal 13.2-45.0 Laboratory test finding 01/13/[address] [address] [phone] Thyroid Stimulating Hormone 0.795 uIU/ML Normal 0. 358-3.740 Free T4 1.03 ng/dL Normal 0.76-1.46 Inhouse Ua 11/18/2020 Inhouse Inhouse Leukocytes neg Inhouse Nitrite neg Inhouse Urobilinogen neg Inhouse Protein neg Inhouse PH 6 Inhouse Hemoglobin neg Inhouse Specific [place] 0.010 Inhouse Ketones neg Inhouse Bilirubin neg Inhouse Glucose neg Laboratory test finding 11/18/[address] [address] [phone] Urine Culture FULL REPORT IN L <SEE NOTE> Normal 6 1 ASSAY INFORMATION: Real Time RT-PCR NOTE: The COVID-19 assay has been cleared by the U.S. Food and Drug Administration under the Emergency Use Authorization (EUA). [employer] and [employer] are designated as high complexity laboratories by [...] Little GFR Left ESRD GFR <15 on VESSEL CAPTAIN 3 Negative <0.91 Equivocal 0.91 - 1.09 Positive >1.09 4 Negative <0.80 Equivocal 0.80 - 1.19 Positive >1.19 . IgM levels may peak at 3-6 weeks post infection, then gradually decline. Performed at: RN - [facility] [address] [id number] Signals Analyst: Lissy Pacheco MD, Phone: [phone] VITAMIN B12 NORMAL RANGE NORMAL 247 [...] FOR ESBL Procedures Date Code Description Status 01/28/2021 51814 Office/Outpatient Established Mo d MDM 30-39 Min Completed 01/06/2021 20633 Office/Outpatient Established Mo d MDM 30-39 Min Completed 12/09/2020 62072 Office/Outpatient Established Lo w MDM 20-29 Min Completed 11/18/2020 04177 Preventive Visit Est 40-64 Yrs C ompleted 11/18/2020 50637 Office/Outpatient Established Lo w MDM 20-29 Min Completed Medical Devices Description No Information Available Encounters Type Date Location Provider Dx Diagnosis Office Visit 01/28/2021 1:30p [facility] Jasvir Weeks D.O. L50.0 Allergic urticaria I10 Essential (primary) hyperten eleni E55.9 Vitamin D deficiency, unspec ified D51.9 Vitamin B12 deficiency anemi a, unspecified Office Visit 01/06/2021 2:40p [facility] Jasvir Weeks D.O. I10 Essential (primary) hyperten eleni R53.83 Other fatigue F90.0 Attn-defct hyperactivity dis order, predom inattentive type F32.81 Premenstrual dysphoric disor bobby Z85.3 Personal history of malignan t neoplasm of breast N83.202 Unspecified ovarian cyst, le ft side R68.82 Decreased libido Office Visit 12/09/2020 1:30p [facility] Kiera Wayne.O. I10 Essential (primary) hyperten eleni R53.83 Other fatigue Office Visit 11/18/2020 4:00p [facility] [place] Leona Weeks D.O. Z00.01 Encounter for general adult [...] Urge incontinence Assessments Date Code Description Provider 01/28/2021 L50.0 Allergic urticaria Leona Barrios D.O. 01/28/2021 I10 Essential (primary) hypertension Leona Weeks D.O. 01/28/2021 E55.9 Vitamin D deficiency, unspecifie d Leona Weeks D.O. 01/28/2021 D51.9 Vitamin B12 deficiency anemia, u nspecified Leona Hernandez, D.O. 01/06/2021 I10 Essential (primary) hypertension Leona Weeks D.O. 01/06/2021 R53.83 Other fatigue Leona martinez D.O. 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 01/06/2021 F32.81 Premenstrual dysphoric disorder Leona Weeks D.O. 01/06/2021 Z85.3 Personal history of malignant ne oplasm of breast Leona Hernandez D.O. 01/06/2021 N83.202 Unspecified ovarian cyst, left s arnoldo Leona Weeks D.O. 01/06/2021 R68.82 Decreased libido Leona Gutierrezno-Adebayo Kiera hannah.OEmperatriz 12/09/2020 I10 Essential (primary) hypertension Leona Weeks D.OEmperatriz 12/09/2020 R53.83 Other fatigue Leona RogersZelaya juan D.O. 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 11/18/2020 F32.81 Premenstrual dysphoric disorder Leona Weeks D.OEmperatriz 11/18/2020 G47.00 Insomnia, unspecified Leona Ku D.O. 11/18/2020 Z85.3 Personal history of malignant ne oplasm of breast Kiera Lott.OEmperatriz 11/18/2020 Z12.11 Encounter for screening for eagle gnant neoplasm of colon Kiera Madison.OEmperatriz 11/18/2020 R03.0 Elevated blood-press ure reading, without diagnosis of hypertension Kiera Madison.OEmperatriz 11/18/2020 Z13.220 Encounter for screening for lipo id disorders Kiera Lott.OEmperatriz 11/18/2020 Z13.29 Encounter for screen ing for other suspected endocrine disorder Kiera Madison.OEmperatriz 11/18/2020 Z13.0 Encounter for screen ing for diseases of the blood and blood- forming organs and certain disorders involving the immune mechanism Leona Weeks D.OEmperatriz 11/18/2020 N39.41 Urge incontinence Kiera Lott.[place] Plan of Treatment No Information Available Functional Status Description No Information Available Mental Status Description No Information Available Referrals Refer to Reason for Referral Status Appt Date Mason Hernandez M.D. This is a mutual patient who underwent hysterectomy in 06/2020 and now presents with 7.1 cm complex ovarian mass. She has a history of breast cancer as well. Please evaluate and treat. Closed 00 / [facility] [address] [facility] [address] [place] [address] [phone] Stefano Varghese M.D. This is a 45 year old female with history of breast cancer. She has never had colonoscopy and given her history, screening at 45 seems prudent. Please evaluate and treat. Sent 12/29/2020 [address] [facility] [address] [place] [address] [phone]
--- OUTSIDE RECORDS SUMMARY | 2021-03-05 10:23 | CCD | Continuity of Care Document ---
Author Author Kayla WEEKS D.O. Organization Unknown Address [address] [employer] [employer] [address] [place] [address] Phone [phone] Care Team Providers Care Cork Wirer Name Role Phone Leona Weeks D.O. AUTM Gallo Linn MD AUTM [phone] Mason Hernandez M.D. AUTM [phone] Stefano Varghese M.D. AUTM [phone] Problems Active Problems Provider Date Disorder of [...] by mouth every day 90tabs D51.9 Leona Weesk D.O. 01/28/2021 Vitamin D (Ergocalciferol) 1.25mg (88109 Ut) Capsules 1 capsule weekly for 12 weeks 12caps E55.9 Mark Weeks D.O. 01/28/2021 Vitamin D3 50mcg (2000 Ut) Capsule s 1 by mouth every day 90caps E55.9 Leona Weeks D.O. 01/28 Valsartan 160mg Tablets 1 by mouth every day 90tabs Leona Weeks D.O. 01/28 Vyvanse 40mg Capsules take one capsule every morning by mouth istop: [id number] 30caps F90.0 Kiera Bishop.O. 08/25/2020 Hydroxyzine HCL 25mg Tablets 1-2 tablet by mouth every night 90tabs Kiera Madison.O. 03/2021 Zolpidem Tartrate ER 12.5mg Tablet s ER take one tablet by mouth every day before bed maximum daily dose = 1 tablet istop: [id number] 30tabs G47.00 Juan F MadisonO. 03/3 Fluticasone Propionate Nasal [place] 50mcg/Act Suspension two sprays each nostril once [...] F O2 % BldC Oximetry 100 % [place] Body Weight 125 lb 01/28/2021 1:36pm BP Systolic 130 mmHg BP Diastolic 78 mmHg Height 65 inches 5'5" Weight 178.00 lb BMI (Body Mass Index) 29.6 kg/m2 Heart Rate 75 /min Respiratory Rate 18 /min Body Temperature 98.3 F O2 % BldC Oximetry 99 % [place] Body Weight 125 lb Results Test Acquired Date Facility Test Result H/L Range Note Coronavirus 2019 Nasopharygeal 02/28/2021 [facility] Outpa tient Testing (Registration) [address] [place] [address] [phone] Coronavirus 2019 Nasopharygeal ASSAY INFORMATIO <SEE N OTE> 1 CBC With Differential 01/13/[address] [id number] [phone] White Blood Count 4.4 10 Normal 4.0-10.0 [...] 36.0-66.0 Lymph % 29.6 % Normal 24.0-44.0 [place] % 7.9 % Normal 2.0-8.0 Eos % 2.7 % Normal 0.0-3.0 Baso % 1.1 % High 0.0-1.0 Immature Granulocyte % 0.7 % Normal 0-3.0 Nucleated Red Blood Cell % 0.0 % Normal 0-0 Neutrophils # 2.6 10 Normal 1.5-8.5 Lymph # 1.3 10 Low 1.5-5.0 [place] # 0.4 10 Normal 0.0-0.8 Eos # 0.1 10 Normal 0.0-0.5 Baso # 0.1 10 Normal 0.0-0.2 Comprehensive Metabolic Profil 01/13/[address] [address] [phone] Glucose, Fasting 91 mg/dL Normal 70-100 Blood [...] Ratio 1.0 Low 1.2-2.2 Lipid Panel 01/13/2021 [facility] nter [address] [place] [address] [phone] Triglycerides Level 61 mg/dL Normal <150 Cholesterol Level 211 mg/dL High <200 HDL Cholesterol 71 mg/dL Normal >40 LDL Cholesterol 128 mg/dL High <100 Non-HDL-C 140 mg/dL Normal Cholesterol Risk Ratio 2.971 Normal <5 Laboratory test finding 01/13/[address] [address] [phone] Total 25(Oh) Vitamin D 18.4 NG/ML Low 30.0-100. 0 Lyme Disease SCRN With Confirm 01/13/[address] [address] [phone] Lyme Disease IgG/IgM Antibodie <0.91 ISR Normal 0 .00-0.90 3 Lyme Disease IgM Ab Quantitati <0.80 index Normal 0.00-0.79 4 Laboratory test finding 01/13/[address] [address] [phone] Ferritin 15 NG/ML Normal 8-252 Vitamin B12 Level 347 pg/mL Normal 247-911 5 Total Iron Binding Capacit 01/13/[address] [address] [phone] Iron (Fe) 72 g/dL Normal 50-170 Total Iron Binding Capacity 342 g/dL Normal 250-450 Percent Saturation 21.1 % Normal 13.2-45.0 Laboratory test finding 01/13/[address] [address] [phone] Thyroid Stimulating Hormone 0.795 uIU/ML Normal 0. 358-3.740 Free T4 1.03 ng/dL Normal 0.76-1.46 Inhouse Ua 11/18/2020 Inhouse Inhouse Leukocytes neg Inhouse Nitrite neg Inhouse Urobilinogen neg Inhouse Protein neg Inhouse PH 6 Inhouse Hemoglobin neg Inhouse Specific [place] 0.010 Inhouse Ketones neg Inhouse Bilirubin neg Inhouse Glucose neg Laboratory test finding 11/18/[address] [address] [phone] Urine Culture FULL REPORT IN L <SEE NOTE> Normal 6 1 ASSAY INFORMATION: Real Time RT-PCR NOTE: The COVID-19 assay has been cleared by the U.S. Food and Drug Administration under the Emergency Use Authorization (EUA). [employer] and [email or web address] are designated as high complexity laboratories by [...] Little GFR Left ESRD GFR <15 on MEDICAL OFFICE COORDINATOR 3 Negative <0.91 Equivocal 0.91 - 1.09 Positive >1.09 4 Negative <0.80 Equivocal 0.80 - 1.19 Positive >1.19 . IgM levels may peak at 3-6 weeks post infection, then gradually decline. Performed at: RN - [facility] [address] [id number] Reception Specialist: Lissy Pacheco MD, Phone: [phone] VITAMIN B12 NORMAL RANGE NORMAL 247 [...] ESBL Procedures Date Code Description Status 03/02/2021 60572 Office/Outpatient Established Lo w MDM 20-29 Min Completed 01/28/2021 42319 Office/Outpatient Established Mo d MDM 30-39 Min Completed 01/06/2021 10750 Office/Outpatient Established Mo d MDM 30-39 Min Completed 12/09/2020 33769 Office/Outpatient Established Lo w MDM 20-29 Min Completed 11/18/2020 81288 Preventive Visit Est 40-64 Yrs C ompleted 11/18/2020 08789 Office/Outpatient Established Lo w MDM 20-29 Min Completed Medical Devices Description No Information Available Encounters Type Date Location Provider Dx Diagnosis Office Visit 03/02/2021 1:00p [facility] Jasvir Weeks D.OEmperatriz I10 Essential (primary) hyperten eleni E55.9 Vitamin D deficiency, unspec ified D51.9 Vitamin B12 deficiency anemi a, unspecified 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 I10 Essential (primary) hyperten eleni R53.83 Other fatigue F90.0 Attn-defct hyperactivity dis order, predom inattentive type F32.81 Premenstrual dysphoric disor bobby Z85.3 Personal history of malignan t neoplasm of breast N83.202 Unspecified ovarian cyst, le ft side R68.82 Decreased libido Office Visit 12/09/2020 1:30p [facility] Jasvir Weeks D.O. I10 Essential (primary) hyperten eleni R53.83 Other fatigue Office Visit 11/18/2020 4:00p [facility] w Jasvir Weeks D.O. Z00.01 Encounter for [...] of malignant ne oplasm of breast Leonamariya BloomIonMacio Hernandez, D.O. 01/06/2021 N83.202 Unspecified ovarian cyst, [...] 1:00 pm - Leona Weeks D.O. at [facility] 03/02/2021 - Leona Weeks D.O.* I10 Essential [...] and treat. Closed [facility] [address] [facility] [address] [place] [address] [phone] Stefano Varghese M.D. This is a 45 year old female with history of breast cancer. She has never had colonoscopy and given her history, screening at 45 seems prudent. Please evaluate and treat. Sent 12/29/2020 [address] [facility] [address] [place] [address] [phone]
--- OUTSIDE RECORDS SUMMARY | 2021-03-05 10:23 | CCD | Continuity of Care Document ---
Author Author Kayla WEEKS D.O. Organization Unknown Address [address] [place] [address] Phone [phone] Care Team Providers Care Hammer Adjuster Name Role Phone Leona Weeks D.O. AUTM Gallo Linn MD AUTM [phone] Mason Hernandez M.D. AUTM [phone] Stefano Varghese M.D. AUTM [phone] Problems Active Problems Provider Date Disorder of [...] Weeks D.O. 01/28/2021 Vitamin D (Ergocalciferol) 1.25mg (46965 Ut) Capsules 1 capsule weekly for 12 weeks 12caps E55.9 Mark Weeks D.O. 01/28/2021 Vitamin D3 50mcg (2000 Ut) Capsule s 1 by mouth every day 90caps E55.9 Leona Weeks D.O. 01/28 Valsartan 160mg Tablets 1 by mouth every day 90tabs Leona Weeks D.O. 01/28 Vyvanse 40mg Capsules take one capsule every morning by mouth istop: 905070114 30caps F90.0 Kiera Bishop.O. 08/25/2020 Hydroxyzine HCL 25mg Tablets 1-2 tablet by mouth every night 90tabs Kiera Madison.O. 03/2021 Zolpidem Tartrate ER 12.5mg Tablet s ER take one tablet by mouth every day before bed maximum daily dose = 1 tablet istop: 503973289 30tabs G47.00 Juan F MadisonO. 03/3 Fluticasone Propionate Nasal [place] 50mcg/Act Suspension two sprays each nostril once [...] F O2 % BldC Oximetry 99 % [place] Body Weight 125 lb 01/06/2021 2:33pm BP Systolic 140 mmHg BP Diastolic 90 mmHg Height 65 inches 5'5" Weight 181.38 lb BMI (Body Mass Index) 30.2 kg/m2 Heart Rate 78 /min Respiratory Rate 14 /min Body Temperature 98.5 F O2 % BldC Oximetry 99 % [place] Body Weight 125 lb Results Test Acquired Date Facility Test Result H/L Range Note CBC With Differential 01/13/[address] [address] [phone] White Blood Count 4.4 10 Normal 4.0-10.0 [...] 36.0-66.0 Lymph % 29.6 % Normal 24.0-44.0 [place] % 7.9 % Normal 2.0-8.0 Eos % 2.7 % Normal 0.0-3.0 Baso % 1.1 % High 0.0-1.0 Immature Granulocyte % 0.7 % Normal 0-3.0 Nucleated Red Blood Cell % 0.0 % Normal 0-0 Neutrophils # 2.6 10 Normal 1.5-8.5 Lymph # 1.3 10 Low 1.5-5.0 [place] # 0.4 10 Normal 0.0-0.8 Eos # 0.1 10 Normal 0.0-0.5 Baso # 0.1 10 Normal 0.0-0.2 Comprehensive Metabolic Profil 01/13/[address] [address] [phone] Glucose, Fasting 91 mg/dL Normal 70-100 Blood Urea Nitrogen 13 mg/dL Normal 7-18 Creatinine For GFR 0.77 mg/dL Normal 0.55-1.30 Glomerular Filtration Rate > 60.0 Normal >58 1 Sodium Level 139 mEq/L Normal 136-145 Potassium [...] Ratio 1.0 Low 1.2-2.2 Lipid Panel 01/13/2021 [facility] [address] [place] [address] [phone] Triglycerides Level 61 mg/dL Normal <150 Cholesterol Level 211 mg/dL High <200 HDL Cholesterol 71 mg/dL Normal >40 LDL Cholesterol 128 mg/dL High <100 Non-HDL-C 140 mg/dL Normal Cholesterol Risk Ratio 2.971 Normal <5 Laboratory test finding 01/13/[address] [address] [phone] Total 25(Oh) Vitamin D 18.4 NG/ML Low 30.0-100. 0 Lyme Disease SCRN With Confirm 01/13/[address] [address] [phone] Lyme Disease IgG/IgM Antibodie <0.91 ISR Normal 0 .00-0.90 2 Lyme Disease IgM Ab Quantitati <0.80 index Normal 0.00-0.79 3 Laboratory test finding 01/13/[address] [address] [phone] Ferritin 15 NG/ML Normal 8-252 Vitamin B12 Level 347 pg/mL Normal 247-911 4 Total Iron Binding Capacit 01/13/[address] [address] [phone] Iron (Fe) 72 g/dL Normal 50-170 Total Iron Binding Capacity 342 g/dL Normal 250-450 Percent Saturation 21.1 % Normal 13.2-45.0 Laboratory test finding 01/13/[address] [address] [phone] Thyroid Stimulating Hormone 0.795 uIU/ML Normal 0. 358-3.740 Free T4 1.03 ng/dL Normal 0.76-1.46 Inhouse Ua 11/18/2020 Inhouse Inhouse Leukocytes neg Inhouse Nitrite neg Inhouse Urobilinogen neg Inhouse Protein neg Inhouse PH 6 Inhouse Hemoglobin neg Inhouse Specific [place] 0.010 Inhouse Ketones neg Inhouse Bilirubin neg Inhouse Glucose neg Laboratory test finding 11/18/[address] [address] [phone] Urine Culture FULL REPORT IN L <SEE NOTE> Normal 5 1 Units are mL/min/1.73 m2 Chronic Kidney Disease Staging per NKF: Stage I & II GFR >=60 Normal to Mildly Decreased Stage III GFR 30-59 Moderately Decreased Stage IV GFR 15-29 Severely Decreased Stage V GFR <15 Very Little GFR Left ESRD GFR <15 on LINE CONTROLLER 2 Negative <0.91 Equivocal 0.91 - 1.09 Positive >1.09 3 Negative <0.80 Equivocal 0.80 - 1.19 Positive >1.19 . IgM levels may peak at 3-6 weeks post infection, then gradually decline. Performed at: RN - [facility] [address] [id number] Elastic Attacher Coverstitch: Lissy Pacheco MD, Phone: [phone] VITAMIN B12 NORMAL RANGE NORMAL 247 - 911 PG/ML INDETERMINATE 211 - 246 PG/ML DEFICIENT LESS THAN 211 PG/ML 5 FULL REPORT IN LAB NOTES ([facility]). ORGANISM 1: ESCHERICHIA COLI COLONY COUNT >100,000 [...] ESBL Procedures Date Code Description Status 01/28/2021 41295 Office/Outpatient Established Mo d MDM 30-39 Min Completed 01/06/2021 80780 Office/Outpatient Established Mo d MDM 30-39 Min Completed 12/09/2020 47737 Office/Outpatient Established Lo w MDM 20-29 Min Completed 11/18/2020 46114 Preventive Visit Est 40-64 Yrs C ompleted 11/18/2020 38035 Office/Outpatient Established Lo w MDM 20-29 Min Completed 08/25/2020 73020 Office/Outpatient Established Mo d MDM 30-39 Min Completed Medical Devices Description No Information Available Encounters Type Date Location Provider Dx Diagnosis Office Visit 01/28/2021 1:30p [facility] Jasvir Weeks D.O. L50.0 Allergic urticaria I10 Essential (primary) hyperten eleni E55.9 Vitamin D deficiency, unspec ified D51.9 Vitamin B12 deficiency anemi a, unspecified Office Visit 01/06/2021 2:40p [facility] Jasvir Weeks D.O. 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 I10 Essential (primary) hyperten eleni R53.83 Other fatigue Office Visit 11/18/2020 4:00p [facility] Kiera Madison.O. Z00.01 Encounter for general adult medical exam [...] the bld/bld-form org/immun mechnsm N39.41 Urge incontinence Office Visit 08/25/2020 1:15p [facility] MANOJ Cage F90.0 Attn-defct hyperactivity dis order, predom inattentive type F32.81 Premenstrual dysphoric disor bobby G47.00 Insomnia, unspecified Assessments Date Code Description Provider 01/28/2021 L50.0 Allergic urticaria Leona Barrios, D.O. 01/28/2021 I10 Essential (primary) hypertension Leona Weeks, D.O. 01/28/2021 E55.9 Vitamin D deficiency, unspecifie d Leona Weeks D.O. 01/28/2021 D51.9 Vitamin B12 deficiency anemia, u nspecified Leona Hernandez, D.O. 01/06/2021 I10 Essential (primary) hypertension Leona Weeks, D.O. 01/06/2021 R53.83 Other fatigue Leona martinez, D.O. 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 01/06/2021 F32.81 Premenstrual dysphoric disorder Leona Weeks, D.O. 01/06/2021 Z85.3 Personal history of malignant ne oplasm of breast Leona Hernandez D.O. 01/06/2021 N83.202 Unspecified ovarian cyst, left s arnoldo Leona Weeks D.O. 01/06/2021 R68.82 Decreased libido Leona hannah D.O. 12/09/2020 I10 Essential (primary) hypertension Leona Weeks D.O. 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, predominantly inattentive type Kiera Madison.OEmperatriz 11/18/2020 F32.81 Premenstrual dysphoric disorder Juan F MadisonOEmperatriz 11/18/2020 G47.00 Insomnia, unspecified Kiera Hart.OEmperatriz 11/18/2020 Z85.3 Personal history of malignant ne oplasm of breast Kiera Lott.OEmperatriz 11/18/2020 Z12.11 Encounter for screening for eagle gnant neoplasm of colon Kiera Madison.OEmperatriz 11/18/2020 R03.0 Elevated blood-press ure reading, without diagnosis of hypertension Juan F MadisonOEmperatriz 11/18/2020 Z13.220 Encounter for screening for lipo id disorders Kiera Lott.OEmperatriz 11/18/2020 Z13.29 Encounter for screen ing for other suspected endocrine disorder Juan F MadisonOEmperatriz 11/18/2020 Z13.0 Encounter for screen ing for diseases of the blood and blood- forming organs and certain disorders involving the immune mechanism Juan F MadisonOEmperatriz 11/18/2020 N39.41 Urge incontinence Kiera Lott.OEmperatriz 08/25/2020 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 at [facility] Functional Status Description No Information Available Mental Status Description No Information Available Referrals Refer to Reason for Referral Status Appt Date Mason Hernandez M.D. This is a mutual patient who underwent hysterectomy in 06/2020 and now presents with 7.1 cm complex ovarian mass. She has a history of breast cancer as well. Please evaluate and treat. Sent [facility] [address] [facility] [address] [facility], [address] [place] [address] [phone] Stefano Varghese M.D. This is a 45 year old female with history of breast cancer. She has never had colonoscopy and given her history, screening at 45 seems prudent. Please evaluate and treat. Sent 12/29/2020 [address] [facility] [address] [place] [address] [phone]
--- OUTSIDE RECORDS SUMMARY | 2021-03-05 10:23 | CCD ---
Continuity of Care Document (CCD) Created on: 01/29/2021 Kayla Partida External Reference #: [id number] : 1975 Sex: Female Author Author Kayla WEEKS D.O. Organization Unknown Address [address] [place] [address] Phone [phone] Care Team Providers Care Manager Servicing Name Role Phone Leona Weeks D.O. AUTM Gallo Linn MD AUTM [phone] Mason Hernandez M.D. AUTM [phone] Stefano Varghese M.D. AUTM [phone] Problems Active Problems Provider Date Disorder of [...] Weeks D.O. 01/28/2021 Vitamin D (Ergocalciferol) 1.25mg (91287 Ut) Capsules 1 capsule weekly for 12 weeks 12caps E55.9 Mark Weeks D.O. 01/28/2021 Vitamin D3 50mcg (2000 Ut) Capsule s 1 by mouth every day 90caps E55.9 Leona Weeks D.O. 01/28 Valsartan 160mg Tablets 1 by mouth every day 90tabs Leona Weeks D.O. 01/28 Vyvanse 40mg Capsules take one capsule every morning by mouth istop: [id number] 30caps F90.0 Kiera Bishop.O. 08/25/2020 Hydroxyzine HCL 25mg Tablets 1-2 tablet by mouth every night 90tabs Kiera Madison.O. 03/2021 Zolpidem Tartrate ER 12.5mg Tablet s ER take one tablet by mouth every day before bed maximum daily dose = 1 tablet istop: [id number] 30tabs G47.00 Juan F MadisonO. 03/3 Fluticasone Propionate Nasal [place] 50mcg/Act Suspension two sprays each nostril once [...] F O2 % BldC Oximetry 99 % [place] Body Weight 125 lb 01/06/2021 2:33pm BP Systolic 140 mmHg BP Diastolic 90 mmHg Height 65 inches 5'5" Weight 181.38 lb BMI (Body Mass Index) 30.2 kg/m2 Heart Rate 78 /min Respiratory Rate 14 /min Body Temperature 98.5 F O2 % BldC Oximetry 99 % [place] Body Weight 125 lb Results Test Acquired Date Facility Test Result H/L Range Note CBC With Differential 01/13/[address] [address] [phone] White Blood Count 4.4 10 Normal 4.0-10.0 [...] 36.0-66.0 Lymph % 29.6 % Normal 24.0-44.0 [place] % 7.9 % Normal 2.0-8.0 Eos % 2.7 % Normal 0.0-3.0 Baso % 1.1 % High 0.0-1.0 Immature Granulocyte % 0.7 % Normal 0-3.0 Nucleated Red Blood Cell % 0.0 % Normal 0-0 Neutrophils # 2.6 10 Normal 1.5-8.5 Lymph # 1.3 10 Low 1.5-5.0 [place] # 0.4 10 Normal 0.0-0.8 Eos # 0.1 10 Normal 0.0-0.5 Baso # 0.1 10 Normal 0.0-0.2 Comprehensive Metabolic Profil 01/13/[address] [address] [phone] Glucose, Fasting 91 mg/dL Normal 70-100 Blood [...] Ratio 1.0 Low 1.2-2.2 Lipid Panel 01/13/2021 [facility] nter [address] [place] [address] [phone] Triglycerides Level 61 mg/dL Normal <150 Cholesterol Level 211 mg/dL High <200 HDL Cholesterol 71 mg/dL Normal >40 LDL Cholesterol 128 mg/dL High <100 Non-HDL-C 140 mg/dL Normal Cholesterol Risk Ratio 2.971 Normal <5 Laboratory test finding 01/13/[address] [address] [phone] Total 25(Oh) Vitamin D 18.4 NG/ML Low 30.0-100. 0 Lyme Disease SCRN With Confirm 01/13/[address] [address] [phone] Lyme Disease IgG/IgM Antibodie <0.91 ISR Normal 0 .00-0.90 2 Lyme Disease IgM Ab Quantitati <0.80 index Normal 0.00-0.79 3 Laboratory test finding 01/13/[address] [address] [phone] Ferritin 15 NG/ML Normal 8-252 Vitamin B12 Level 347 pg/mL Normal 247-911 4 Total Iron Binding Capacit 01/13/[address] [address] [phone] Iron (Fe) 72 g/dL Normal 50-170 Total Iron Binding Capacity 342 g/dL Normal 250-450 Percent Saturation 21.1 % Normal 13.2-45.0 Laboratory test finding 01/13/[address] [address] [phone] Thyroid Stimulating Hormone 0.795 uIU/ML Normal 0. 358-3.740 Free T4 1.03 ng/dL Normal 0.76-1.46 Inhouse Ua 11/18/2020 Inhouse Inhouse Leukocytes neg Inhouse Nitrite neg Inhouse Urobilinogen neg Inhouse Protein neg Inhouse PH 6 Inhouse Hemoglobin neg Inhouse Specific [place] 0.010 Inhouse Ketones neg Inhouse Bilirubin neg Inhouse Glucose neg Laboratory test finding 11/18/[address] [address] [phone] Urine Culture FULL REPORT IN L <SEE NOTE> Normal 5 1 Units are mL/min/1.73 m2 Chronic Kidney Disease Staging per NKF: Stage I & II GFR >=60 Normal to Mildly Decreased Stage III GFR 30-59 Moderately Decreased Stage IV GFR 15-29 Severely Decreased Stage V GFR <15 Very Little GFR Left ESRD GFR <15 on MAINTENANCE TECHNICIAN 3RD SHIFT 2 Negative <0.91 Equivocal 0.91 - 1.09 Positive >1.09 3 Negative <0.80 Equivocal 0.80 - 1.19 Positive >1.19 . IgM levels may peak at 3-6 weeks post infection, then gradually decline. Performed at: RN - [facility] [address] [id number] Bench Examiner: Lissy Pacheco MD, Phone: [phone] VITAMIN B12 NORMAL RANGE NORMAL 247 [...] ESBL Procedures Date Code Description Status 01/28/2021 58975 Office/Outpatient Established Mo d MDM 30-39 Min Completed 01/06/2021 19958 Office/Outpatient Established Mo d MDM 30-39 Min Completed 12/09/2020 98189 Office/Outpatient Established Lo w MDM 20-29 Min Completed 11/18/2020 08057 Preventive Visit Est 40-64 Yrs C ompleted 11/18/2020 [address]841 Office/Outpatient Established Lo w MDM 20-29 Min Completed 08/25/2020 33185 Office/Outpatient Established Mo d MDM 30-39 Min Completed Medical Devices Description No Information Available Encounters Type Date Location Provider Dx Diagnosis Office Visit 01/28/2021 1:30p [facility] Jasvir Weeks D.O. L50.0 Allergic urticaria I10 Essential (primary) hyperten eleni E55.9 Vitamin D deficiency, unspec ified D51.9 Vitamin B12 deficiency anemi a, unspecified Office Visit 01/06/2021 2:40p [facility] Jasvir Weeks D.O. 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 I10 Essential (primary) hyperten eleni R53.83 Other fatigue Office Visit 11/18/2020 4:00p [facility] Kiera Madison.O. Z00.01 Encounter for general adult [...] N39.41 Urge incontinence Office Visit 08/25/2020 1:15p [facility] MANOJ Cage F90.0 Attn-defct hyperactivity dis order, [...] Unspecified ovarian cyst, left s arnoldo Leona eWeks D.O. 01/06/2021 R68.82 Decreased libido Leona hannah [...] 1:00 pm - Leona Weeks D.O. at [facility] Functional Status Description No Information Available Mental Status Description No Information Available Referrals Refer to Reason for Referral Status Appt Date Mason Hernandez M.D. This is a mutual patient who underwent hysterectomy in 06/2020 and now presents with 7.1 cm complex ovarian mass. She has a history of breast cancer as well. Please evaluate and treat. Sent [facility] [address] [facility], [address] [place] [address] [phone] Stefano Varghese M.D. This is a 45 year old female with history of breast cancer. She has never had colonoscopy and given her history, screening at 45 seems prudent. Please evaluate and treat. Sent 12/29/2020 [address] [facility] [address] [place] [address] [phone]
--- OUTSIDE RECORDS SUMMARY | 2021-03-05 10:23 | CCD | Continuity of Care Document ---
Author Author Kayla WEEKS D.O. Organization Unknown Address [address] [place] [address] Phone [phone] Care Team Providers Care Loan Associate Name Role Phone Leona Weeks D.O. AUTM Gallo Linn MD AUTM [phone] Mason Hernandez M.D. AUTM [phone] Stefano Varghese M.D. AUTM [phone] Problems Active Problems Provider Date Disorder of [...] Weeks D.O. 01/28/2021 Vitamin D (Ergocalciferol) 1.25mg (80570 Ut) Capsules 1 capsule weekly for 12 weeks 12caps E55.9 Mark Weeks D.O. 01/28/2021 Vitamin D3 50mcg (2000 Ut) Capsule s 1 by mouth every day 90caps E55.9 Leona Weeks D.O. 01/28 Valsartan 160mg Tablets 1 by mouth every day 90tabs Leona Weeks D.O. 01/28 Vyvanse 40mg Capsules take one capsule every morning by mouth istop: [id number] 30caps F90.0 Kiera Bishop.O. 08/25/2020 Hydroxyzine HCL 25mg Tablets 1-2 tablet by mouth every night 90tabs Kiera Madison.O. 03/2021 Zolpidem Tartrate ER 12.5mg Tablet s ER take one tablet by mouth every day before bed maximum daily dose = 1 tablet istop: [id number] 30tabs G47.00 Juan F MadisonO. 03/3 Fluticasone Propionate Nasal [place] 50mcg/Act Suspension two sprays each nostril once daily 29.7ml H65.02 Kiera Lott.O. 04/17/2019 Colace 100mg Capsules 1 by mouth every day as needed 90caps Leona Wekes D.O. 12/15 History Medications Lisinopril 20mg Tablets [...] F O2 % BldC Oximetry 100 % [place] Body Weight 125 lb 01/28/2021 1:36pm BP Systolic 130 mmHg BP Diastolic 78 mmHg Height 65 inches 5'5" Weight 178.00 lb BMI (Body Mass Index) 29.6 kg/m2 Heart Rate 75 /min Respiratory Rate 18 /min Body Temperature 98.3 F O2 % BldC Oximetry 99 % [place] Body Weight 125 lb Results Test Acquired Date Facility Test Result H/L Range Note Coronavirus 2019 Nasopharygeal 02/28/2021 [facility] Outpa tient Testing (Registration) [address] [place] [address] [id number] [phone] Coronavirus 2019 Nasopharygeal ASSAY INFORMATIO <SEE N OTE> 1 CBC With Differential 01/13/[address] [id number] [phone] White Blood Count 4.4 10 Normal 4.0-10.0 [...] 36.0-66.0 Lymph % 29.6 % Normal 24.0-44.0 [place] % 7.9 % Normal 2.0-8.0 Eos % 2.7 % Normal 0.0-3.0 Baso % 1.1 % High 0.0-1.0 Immature Granulocyte % 0.7 % Normal 0-3.0 Nucleated Red Blood Cell % 0.0 % Normal 0-0 Neutrophils # 2.6 10 Normal 1.5-8.5 Lymph # 1.3 10 Low 1.5-5.0 [place] # 0.4 10 Normal 0.0-0.8 Eos # 0.1 10 Normal 0.0-0.5 Baso # 0.1 10 Normal 0.0-0.2 Comprehensive Metabolic Profil 01/13/[address] [address] [phone] Glucose, Fasting 91 mg/dL Normal 70-100 Blood [...] Ratio 1.0 Low 1.2-2.2 Lipid Panel 01/13/2021 [facility] nter [address] [place] [address] [phone] Triglycerides Level 61 mg/dL Normal <150 Cholesterol Level 211 mg/dL High <200 HDL Cholesterol 71 mg/dL Normal >40 LDL Cholesterol 128 mg/dL High <100 Non-HDL-C 140 mg/dL Normal Cholesterol Risk Ratio 2.971 Normal <5 Laboratory test finding 01/13/[address] [address] [phone] Total 25(Oh) Vitamin D 18.4 NG/ML Low 30.0-100. 0 Lyme Disease SCRN With Confirm 01/13/[address] [address] [phone] Lyme Disease IgG/IgM Antibodie <0.91 ISR Normal 0 .00-0.90 3 Lyme Disease IgM Ab Quantitati <0.80 index Normal 0.00-0.79 4 Laboratory test finding 01/13/[address] [address] [phone] Ferritin 15 NG/ML Normal 8-252 Vitamin B12 Level 347 pg/mL Normal 247-911 5 Total Iron Binding Capacit 01/13/[address] [address] [phone] Iron (Fe) 72 g/dL Normal 50-170 Total Iron Binding Capacity 342 g/dL Normal 250-450 Percent Saturation 21.1 % Normal 13.2-45.0 Laboratory test finding 01/13/[address] [address] [phone] Thyroid Stimulating Hormone 0.795 uIU/ML Normal 0. 358-3.740 Free T4 1.03 ng/dL Normal 0.76-1.46 Inhouse Ua 11/18/2020 Inhouse Inhouse Leukocytes neg Inhouse Nitrite neg Inhouse Urobilinogen neg Inhouse Protein neg Inhouse PH 6 Inhouse Hemoglobin neg Inhouse Specific [place] 0.010 Inhouse Ketones neg Inhouse Bilirubin neg Inhouse Glucose neg Laboratory test finding 11/18/[address] [address] [phone] Urine Culture FULL REPORT IN L <SEE NOTE> Normal 6 1 ASSAY INFORMATION: Real Time RT-PCR NOTE: The COVID-19 assay has been cleared by the U.S. Food and Drug Administration under the Emergency Use Authorization (EUA). [employer] and [employer] are designated as high complexity laboratories by [...] Little GFR Left ESRD GFR <15 on SECONDARY SPANISH TEACHER 3 Negative <0.91 Equivocal 0.91 - 1.09 Positive >1.09 4 Negative <0.80 Equivocal 0.80 - 1.19 Positive >1.19 . IgM levels may peak at 3-6 weeks post infection, then gradually decline. Performed at: RN - [facility] [address] [id number] Independent Insurance Adjuster: Lissy Pacheco MD, Phone: [phone] VITAMIN B12 NORMAL RANGE NORMAL 247 [...] ESBL Procedures Date Code Description Status 03/02/2021 20666 Office/Outpatient Established Lo w MDM 20-29 Min Completed 01/28/2021 20707 Office/Outpatient Established Mo d MDM 30-39 Min Completed 01/06/2021 70276 Office/Outpatient Established Mo d MDM 30-39 Min Completed 12/09/2020 13596 Office/Outpatient Established Lo w MDM 20-29 Min Completed 11/18/2020 11973 Preventive Visit Est 40-64 Yrs C ompleted 11/18/2020 42497 Office/Outpatient Established Lo w MDM 20-29 Min Completed Medical Devices Description No Information Available Encounters Type Date Location Provider Dx Diagnosis Office Visit 03/02/2021 1:00p [facility] Jasvir Weeks D.OEmperatriz I10 Essential (primary) hyperten eleni E55.9 Vitamin D deficiency, unspec ified D51.9 Vitamin B12 deficiency anemi a, unspecified 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 I10 Essential (primary) [...] 1:00 pm - Leona Weeks D.O. at [facility] 03/02/2021 - Leona Weeks D.O.* I10 [...] and treat. Closed [facility] [address] [facility] [address] [place] [address] [phone] Stefano Varghese M.D. This is a 45 year old female with history of breast cancer. She has never had colonoscopy and given her history, screening at 45 seems prudent. Please evaluate and treat. Sent 12/29/2020 [address] [facility] [address] [place] [address] [phone]
--- OUTSIDE RECORDS SUMMARY | 2021-03-05 10:24 | CCD | Continuity of Care Document ---
Author Author Kayla WEEKS D.O. Organization Unknown Address [address] [place] [address] Phone [phone] Care Team Providers Care Research Agricultural Engineer Name Role Phone Leona Weeks D.O. AUTM [phone] Gallo Linn MD AUTM [phone] Mason Hernandez M.D. AUTM [phone] Stefano Varghese M.D. AUTM [phone] Problems Active Problems Provider Date Disorder of [...] Weeks D.O. 01/28/2021 Vitamin D (Ergocalciferol) 1.25mg (08110 Ut) Capsules 1 capsule weekly for 12 weeks 12caps E55.9 Mark Weeks D.O. 01/28/2021 Vitamin D3 50mcg (2000 Ut) Capsule s 1 by mouth every day 90caps E55.9 Leona Weeks D.O. 01/28 Valsartan 160mg Tablets 1 by mouth every day 90tabs Leona Weeks D.O. 01/28 Vyvanse 40mg Capsules take one capsule every morning by mouth istop: [id number] 30caps F90.0 Kiera Bishop.O. 08/25/2020 Hydroxyzine HCL 25mg Tablets 1-2 tablet by mouth every night 90tabs Kiera Madison.O. 03/2021 Zolpidem Tartrate ER 12.5mg Tablet s ER take one tablet by mouth every day before bed maximum daily dose = 1 tablet istop: [id number] 30tabs G47.00 Juan F MadisonO. 03/3 Fluticasone Propionate Nasal [place] 50mcg/Act Suspension two sprays each nostril once [...] F O2 % BldC Oximetry 99 % [place] Body Weight 125 lb 01/06/2021 2:33pm BP Systolic 140 mmHg BP Diastolic 90 mmHg Height 65 inches 5'5" Weight 181.38 lb BMI (Body Mass Index) 30.2 kg/m2 Heart Rate 78 /min Respiratory Rate 14 /min Body Temperature 98.5 F O2 % BldC Oximetry 99 % [place] Body Weight 125 lb Results Test Acquired Date Facility Test Result H/L Range Note CBC With Differential 01/13/[address] [address] [phone] White Blood Count 4.4 10 Normal 4.0-10.0 [...] 36.0-66.0 Lymph % 29.6 % Normal 24.0-44.0 [place] % 7.9 % Normal 2.0-8.0 Eos % 2.7 % Normal 0.0-3.0 Baso % 1.1 % High 0.0-1.0 Immature Granulocyte % 0.7 % Normal 0-3.0 Nucleated Red Blood Cell % 0.0 % Normal 0-0 Neutrophils # 2.6 10 Normal 1.5-8.5 Lymph # 1.3 10 Low 1.5-5.0 [place] # 0.4 10 Normal 0.0-0.8 Eos # 0.1 10 Normal 0.0-0.5 Baso # 0.1 10 Normal 0.0-0.2 Comprehensive Metabolic Profil 01/13/[address] [address] [phone] Glucose, Fasting 91 mg/dL Normal 70-100 Blood [...] Ratio 1.0 Low 1.2-2.2 Lipid Panel 01/13/2021 [facility] nter [address] [place] [address] [phone] Triglycerides Level 61 mg/dL Normal <150 Cholesterol Level 211 mg/dL High <200 HDL Cholesterol 71 mg/dL Normal >40 LDL Cholesterol 128 mg/dL High <100 Non-HDL-C 140 mg/dL Normal Cholesterol Risk Ratio 2.971 Normal <5 Laboratory test finding 01/13/[address] [address] [phone] Total 25(Oh) Vitamin D 18.4 NG/ML Low 30.0-100. 0 Lyme Disease SCRN With Confirm 01/13/[address] [address] [phone] Lyme Disease IgG/IgM Antibodie <0.91 ISR Normal 0 .00-0.90 2 Lyme Disease IgM Ab Quantitati <0.80 index Normal 0.00-0.79 3 Laboratory test finding 01/13/[address] [address] [phone] Ferritin 15 NG/ML Normal 8-252 Vitamin B12 Level 347 pg/mL Normal 247-911 4 Total Iron Binding Capacit 01/13/[address] [address] [phone] Iron (Fe) 72 g/dL Normal 50-170 Total Iron Binding Capacity 342 g/dL Normal 250-450 Percent Saturation 21.1 % Normal 13.2-45.0 Laboratory test finding 01/13/[address] [address] [phone] Thyroid Stimulating Hormone 0.795 uIU/ML Normal 0. 358-3.740 Free T4 1.03 ng/dL Normal 0.76-1.46 Inhouse Ua 11/18/2020 Inhouse Inhouse Leukocytes neg Inhouse Nitrite neg Inhouse Urobilinogen neg Inhouse Protein neg Inhouse PH 6 Inhouse Hemoglobin neg Inhouse Specific [place] 0.010 Inhouse Ketones neg Inhouse Bilirubin neg Inhouse Glucose neg Laboratory test finding 11/18/[address] [address] [phone] Urine Culture FULL REPORT IN L <SEE NOTE> Normal 5 1 Units are mL/min/1.73 m2 Chronic Kidney Disease Staging per NKF: Stage I & II GFR >=60 Normal to Mildly Decreased Stage III GFR 30-59 Moderately Decreased Stage IV GFR 15-29 Severely Decreased Stage V GFR <15 Very Little GFR Left ESRD GFR <15 on TRANSPORT TRUCK DRIVER 2 Negative <0.91 Equivocal 0.91 - 1.09 Positive >1.09 3 Negative <0.80 Equivocal 0.80 - 1.19 Positive >1.19 . IgM levels may peak at 3-6 weeks post infection, then gradually decline. Performed at: RN - [facility] [address] [id number] Circuits Engineer: Lissy Pacheco MD, Phone: [phone] VITAMIN B12 NORMAL RANGE NORMAL 247 [...] ESBL Procedures Date Code Description Status 01/28/2021 74130 Office/Outpatient Established Mo d MDM 30-39 Min Completed 01/06/2021 23050 Office/Outpatient Established Mo d MDM 30-39 Min Completed 12/09/2020 15693 Office/Outpatient Established Lo w MDM 20-29 Min Completed 11/18/2020 61313 Preventive Visit Est 40-64 Yrs C ompleted 11/18/2020 42306 Office/Outpatient Established Lo w MDM 20-29 Min Completed 08/25/2020 18136 Office/Outpatient Established Mo d MDM 30-39 Min [...] Other fatigue Office Visit 11/18/2020 4:00p [facility] Kiera Madison.O. Z00.01 Encounter for general adult [...] 1:00 pm - Leona Weeks D.O. at [facility] Functional Status Description No Information Available Mental Status Description No Information Available Referrals Refer to Reason for Referral Status Appt Date Mason Hernandez M.D. This is a mutual patient who underwent hysterectomy in 06/2020 and now presents with 7.1 cm complex ovarian mass. She has a history of breast cancer as well. Please evaluate and treat. Sent [facility] [address] [facility], [address] [place] [address] [phone] Stefano Varghese M.D. This is a 45 year old female with history of breast cancer. She has never had colonoscopy and given her history, screening at 45 seems prudent. Please evaluate and treat. Sent 12/29/2020 [address] [facility] [address] [place] [address] [phone]
--- OUTSIDE RECORDS SUMMARY | 2021-03-05 10:24 | CCD | Continuity of Care Document ---
Author Author Kayla WEEKS D.O. Organization Unknown Address [address] [place] [address] Phone [phone] Care Team Providers Care Rotary Shear Operator Name Role Phone Leona Weeks D.O. AUTM [phone] Gallo Linn MD AUTM [phone] Mason Hernandez M.D. AUTM [phone] Stefano Varghese M.D. AUTM [phone] Problems Active Problems Provider Date Disorder of [...] Use Denies Drug Use Smoking Status Reviewed: 11/18/20 Patient has never smoked Exercise Type/Frequency weights and cardio 2-3 t imes per week Allergies, Adverse Reactions, Alerts Description No Known Drug Allergies Medications Active Medications SIG Qnty Indications Ordering Provide r Date Lisinopril 10mg Tablets 1 by mouth every day 30tabs I10 Juan F MadisonOEmperatriz 12/09 Vyvanse 40mg Capsules take one capsule every morning by mouth istop: [id number] 30caps F90.0 Juan F BishopO. 08/25/2020 Hydroxyzine HCL 25mg Tablets 1-2 tablet by mouth every night 90tabs Leona Weeks D.O. 03/2021 Zolpidem Tartrate ER 12.5mg Tablet s ER Take One Tablet By Mouth Every Day Before Bed Maximum Daily Dose = 1 Tablet 30tabs G47.00 Leona Weeks D.O. 07/15/2020 Fluticasone Propionate Nasal [place] 50mcg/Act Suspension two sprays each nostril once daily 29.7ml H65.02 Juan F LottOEmperatriz 04/17/2019 Colace 100mg Capsules 1 by mouth every day as needed 90caps Juan F MadisonO. 12/15 History Medications Macrobid 100mg Capsules take one capsule by mouth twice a day for 7 days 14caps Juan F SalgadoOEmperatriz 11/21/2020 - 12/09/2020 Vyvanse 20mg Capsules take one capsule every morning by mouth 30caps F90.0 Juan F MadisonO . 07/28/2020 - 08/25/2020 Ambien CR 12.5mg Tablets ER Take one tablet by mouth one hour before bed to help with sleeping 30tabs G4 7.00 Leona Weeks D.O. 07/15/2020 - 07/15/2020 Dayvigo 10mg Tablets Take one tablet by mouth one hour before bed to help with sleeping 30tabs G47.00 Leona Hernandez D.O. 06/26/2020 - 07/15/2020 Immunizations Description No Information Available Vital Signs Date Vital Result Comment 12/09/2020 1:30pm BP Systolic 164 mmHg BP Diastolic 100 mmHg Height 65 inches 5'5" Weight 177.25 lb BMI (Body Mass Index) 29.5 kg/m2 Heart Rate 90 /min Respiratory Rate 14 /min Body Temperature 97.0 F O2 % BldC Oximetry 99 % [place] Body Weight 125 lb 11/18/2020 3:43pm BP Systolic 180 mmHg BP Diastolic 110 mmHg Height 65 inches 5'5" Weight 181.00 lb BMI (Body Mass Index) 30.1 kg/m2 Heart Rate 68 /min Respiratory Rate 14 /min Body Temperature 98.3 F O2 % BldC Oximetry 99 % [place] Body Weight 125 lb Results Test Acquired Date Facility Test Result H/L Range Note Inhouse Ua 11/18/2020 Inhouse Inhouse Leukocytes neg Inhouse Nitrite neg Inhouse Urobilinogen neg Inhouse Protein neg Inhouse PH 6 Inhouse Hemoglobin neg Inhouse Specific [place] 0.010 Inhouse Ketones neg Inhouse Bilirubin neg Inhouse Glucose neg Laboratory test finding 11/18/2020 [place] [id number] [phone] Urine Culture FULL REPORT IN L <SEE NOTE> Normal 1 1 FULL REPORT IN LAB NOTES (eC W [...] FOR ESBL Procedures Date Code Description Status 12/09/2020 30592 Office/Outpatient Established Lo w MDM 20-29 Min Completed 11/18/2020 63904 Preventive Visit Est 40-64 Yrs C ompleted 11/18/2020 09096 Office/Outpatient Established Lo w MDM 20-29 Min Completed 08/25/2020 89269 Office/Outpatient Established Mo d MDM 30-39 Min Completed 07/28/2020 75953 Office/Outpatient Established Lo w MDM 20-29 Min Completed 06/26/2020 03832 Office/Outpatient Established Mo d MDM 30-39 Min Completed Medical Devices Description No Information Available Encounters Type Date Location Provider Dx Diagnosis Office Visit 12/09/2020 1:30p [facility] Jasvir Weeks D.O. I10 Essential (primary) hyperten eleni R53.83 Other fatigue Office Visit 11/18/2020 4:00p [facility] Jasvir Weeks D.O. Z00.01 Encounter for general [...] N39.41 Urge incontinence Office Visit 08/25/2020 1:15p [facility] MANOJ Green F90.0 Attn-defct hyperactivity dis order, predom inattentive type F32.81 Premenstrual dysphoric disor bobby G47.00 Insomnia, unspecified Office Visit 07/28/2020 1:00p [facility] MANOJ Green G47.00 Insomnia, unspecified F90.0 Attn-defct hyperactivity dis order, predom inattentive type Office Visit 06/26/2020 11:00a [facility] MANOJ Green F32.81 Premenstrual dysphoric disor bobby G47.00 Insomnia, unspecified Assessments Date Code Description Provider 12/09/2020 I10 Essential (primary) hypertension Leona Weeks, D.OEmperatriz 12/09/2020 R53.83 Other fatigue Leona martinez D.OEmperatriz 11/18/2020 Z00.01 Encounter for genera l adult medical examination with abnormal findings Leona Weeks D.OEmperatriz 11/18/2020 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 at [facility] Functional Status Description No Information Available Mental Status Description No Information Available Referrals Refer to Reason for Referral Status Appt Date Stefano Varghese M.D. This is a 45 year old female with history of breast cancer. She has never had colonoscopy and given her history, screening at 45 seems prudent. Please evaluate and treat. Sent 12/29/[address] [address] [phone]
--- OUTSIDE RECORDS SUMMARY | 2021-03-05 10:24 | CCD | Continuity of Care Document ---
Author Author Kayla WEEKS D.O. Organization Unknown Address [address] [place] [address] Phone [phone] Care Team Providers Care Tug Boat Captain Name Role Phone Leona Weeks D.O. AUTM Gallo Linn MD AUTM [phone] Mason Hernandez M.D. AUTM [phone] Stefano Varghese M.D. AUTM [phone] Problems Active Problems Provider Date Disorder of [...] Qnty Indications Ordering Provide r Date Lisinopril 20mg Tablets 1 by mouth every day 90tabs I10 Kiera Madison.O. 01/06 Vyvanse 40mg Capsules take one capsule every morning by mouth istop: 240211372 30caps F90.0 Kiera Bishop.O. 08/25/2020 Hydroxyzine HCL 25mg Tablets 1-2 tablet by mouth every night 90tabs Juan F MadisonOEmperatriz 03/2021 Zolpidem Tartrate ER 12.5mg Tablet s ER take one tablet by mouth every day before bed maximum daily dose = 1 tablet istop: 405289399 30tabs G47.00 Juan F MadisonOEmperatriz 06/18 Fluticasone Propionate Nasal [place] 50mcg/Act Suspension two sprays each nostril once daily 29.7ml H65.02 Juan F LottOEmperatriz 04/17/2019 Colace 100mg Capsules 1 by mouth every day as needed 90caps Leona Weeks D.O. 12/15 History Medications Lisinopril 10mg Tablets 1 by mouth every day 30tabs I10 Juan F MadisonOEmperatriz 12/09 - 01/06/2021 Macrobid 100mg Capsules take [...] 7.00 Leona Weeks D.O. 07/15/2020 - 07/15/2020 Immunizations Description No Information Available Vital Signs Date Vital Result Comment 01/06/2021 2:33pm BP Systolic 140 mmHg BP Diastolic 90 mmHg Height 65 inches 5'5" Weight 181.38 lb BMI (Body Mass Index) 30.2 kg/m2 Heart Rate 78 /min Respiratory Rate 14 /min Body Temperature 98.5 F O2 % BldC Oximetry 99 % [place] Body Weight 125 lb 12/09/2020 1:30pm BP Systolic 164 mmHg BP Diastolic 100 mmHg Height 65 inches 5'5" Weight 177.25 lb BMI (Body Mass Index) 29.5 kg/m2 Heart Rate 90 /min Respiratory Rate 14 /min Body Temperature 97.0 F O2 % BldC Oximetry 99 % [place] Body Weight 125 lb Results Test Acquired Date Facility Test Result H/L Range Note Inhouse Ua 11/18/2020 Inhouse Inhouse Leukocytes neg Inhouse Nitrite neg Inhouse Urobilinogen neg Inhouse Protein neg Inhouse PH 6 Inhouse Hemoglobin neg Inhouse Specific [place] 0.010 Inhouse Ketones neg Inhouse Bilirubin neg Inhouse Glucose neg Laboratory test finding 11/18/2020 [place] [id number] [phone] Urine Culture FULL REPORT IN L <SEE [...] FOR ESBL Procedures Date Code Description Status 01/06/2021 64370 Office/Outpatient Established Mo d MDM 30-39 Min Completed 12/09/2020 85174 Office/Outpatient Established Lo w MDM 20-29 Min Completed 11/18/2020 41397 Preventive Visit Est 40-64 Yrs C ompleted 11/18/2020 24026 Office/Outpatient Established Lo w MDM 20-29 Min Completed 08/25/2020 64996 Office/Outpatient Established Mo d MDM 30-39 Min Completed 07/28/2020 20880 Office/Outpatient Established Lo w MDM 20-29 Min Completed Medical Devices Description No Information Available Encounters Type Date Location Provider Dx Diagnosis Office Visit 01/06/2021 2:40p [facility] Juan F WayneO. I10 Essential (primary) hyperten eleni R53.83 Other fatigue F90.0 Attn-defct hyperactivity dis order, predom inattentive type F32.81 Premenstrual dysphoric disor bobby Z85.3 Personal history of malignan t neoplasm of breast N83.202 Unspecified ovarian cyst, le ft side R68.82 Decreased libido Office Visit 12/09/2020 1:30p [facility] Juan F WayneO. I10 Essential (primary) hyperten eleni R53.83 Other fatigue Office Visit 11/18/2020 4:00p [facility] Jasvir Weeks D.O. Z00.01 Encounter for general [...] N39.41 Urge incontinence Office Visit 08/25/2020 1:15p [facility] MANOJ Cage F90.0 Attn-defct hyperactivity dis order, predom inattentive type F32.81 Premenstrual dysphoric disor bobby G47.00 Insomnia, unspecified Office Visit 07/28/2020 1:00p [facility] MANOJ Cage G47.00 Insomnia, unspecified F90.0 Attn-defct hyperactivity dis order, predom inattentive type Assessments Date Code Description Provider 01/06/2021 I10 Essential (primary) hypertension Kiera Madison.OEmperatriz 01/06/2021 R53.83 Other fatigue Juan F SalgadoOEmperatriz 01/06/2021 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 12/09/2020 I10 Essential (primary) hypertension Leonamariya LemonDenis D.OEmperatriz 12/09/2020 R53.83 Other fatigue Leonamariya RogersNathalie martinez D.O. 11/18/2020 Z00.01 Encounter for genera l adult medical examination with abnormal findings Leona IonKiera Dorsey.O. 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 11/18/2020 F32.81 Premenstrual dysphoric disorder Leona IonDenis D.O. 11/18/2020 G47.00 Insomnia, unspecified Leonamariya Painting Kings D.O. 11/18/2020 Z85.3 Personal history of malignant ne oplasm of breast Leona Hernandez D.O. 11/18/2020 Z12.11 Encounter for screening for eagle gnant neoplasm of colon Leona Weeks, D.O. 11/18/2020 R03.0 Elevated blood-press ure reading, [...] peractivity disorder, predominantly inattentive type MANOJ Green Plan of Treatment Future Appointment(s):* 01/28/2021 1:30 pm - Leona Weeks D.O. at [facility] Functional Status Description No Information Available Mental Status Description No Information Available Referrals Refer to Reason for Referral Status Appt Date Mason Hernandez M.D. This is a mutual patient who underwent hysterectomy in 06/2020 and now presents with 7.1 cm complex ovarian mass. She has a history of breast cancer as well. Please evaluate and treat. Sent [facility] [address] [facility] [address] [place] [address] [phone] Stefano Varghese M.D. This is a 45 year old female with history of breast cancer. She has never had colonoscopy and given her history, screening at 45 seems prudent. Please evaluate and treat. Sent 12/29/2020 [address] [facility] [address] [place] [address] [phone]
--- OUTSIDE RECORDS SUMMARY | 2021-03-05 10:24 | CCD ---
Continuity of Care Document (CCD) Created on: 01/15/2021 Kayla Partida External Reference #: [id number] : [id number] Sex: Female Author Author Kayla WEEKS D.O. Organization Unknown Address [address] [place] [address] Phone [phone] Care Team Providers Care Heel Seat Trimmer Name Role Phone Leona Weeks D.O. AUTM [phone] Gallo Linn MD AUTM [phone] Mason Hernandez M.D. AUTM [phone] Stefano Varghese M.D. AUTM [phone] Problems Active Problems Provider Date Disorder of [...] one capsule every morning by mouth istop: [id number] 30caps F90.0 Kiera Bishop.O. 08/25/2020 Hydroxyzine HCL 25mg Tablets 1-2 tablet by mouth every night 90tabs Juan F MadisonOEmperatriz 03/2021 Zolpidem Tartrate ER 12.5mg Tablet s ER take one tablet by mouth every day before bed maximum daily dose = 1 tablet istop: 654832142 30tabs G47.00 Juan F MadisonOEmperatriz 06/18 Fluticasone Propionate Nasal [place] 50mcg/Act Suspension two sprays each nostril once [...] Juan F MadisonO . 07/28/2020 - 08/25/2020 Immunizations Description No Information Available Vital Signs Date Vital Result Comment 01/06/2021 2:33pm BP Systolic 140 mmHg BP Diastolic 90 mmHg Height 65 inches 5'5" Weight 181.38 lb BMI (Body Mass Index) 30.2 kg/m2 Heart Rate 78 /min Respiratory Rate 14 /min Body Temperature 98.5 F O2 % BldC Oximetry 99 % [place] Body Weight 125 lb 12/09/2020 1:30pm BP Systolic 164 mmHg BP Diastolic 100 mmHg Height 65 inches 5'5" Weight 177.25 lb BMI (Body Mass Index) 29.5 kg/m2 Heart Rate 90 /min Respiratory Rate 14 /min Body Temperature 97.0 F O2 % BldC Oximetry 99 % [place] Body Weight 125 lb Results Test Acquired Date Facility Test Result H/L Range Note CBC With Differential 01/13/2021 [place] [id number] [phone] White Blood Count 4.4 10 Normal 4.0-10.0 [...] 36.0-66.0 Lymph % 29.6 % Normal 24.0-44.0 [place] % 7.9 % Normal 2.0-8.0 Eos % 2.7 % Normal 0.0-3.0 Baso % 1.1 % High 0.0-1.0 Immature Granulocyte % 0.7 % Normal 0-3.0 Nucleated Red Blood Cell % 0.0 % Normal 0-0 Neutrophils # 2.6 10 Normal 1.5-8.5 Lymph # 1.3 10 Low 1.5-5.0 [place] # 0.4 10 Normal 0.0-0.8 Eos # 0.1 10 Normal 0.0-0.5 Baso # 0.1 10 Normal 0.0-0.2 Comprehensive Metabolic Profil 01/13/[address] [address] [phone] Glucose, Fasting 91 mg/dL Normal 70-100 Blood [...] Ratio 1.0 Low 1.2-2.2 Lipid Panel 01/13/2021 [facility] [address] [place] [address] [phone] Triglycerides Level 61 mg/dL Normal <150 Cholesterol Level 211 mg/dL High <200 HDL Cholesterol 71 mg/dL Normal >40 LDL Cholesterol 128 mg/dL High <100 Non-HDL-C 140 mg/dL Normal Cholesterol Risk Ratio 2.971 Normal <5 Laboratory test finding 01/13/[address] [address] [phone] Total 25(Oh) Vitamin D 18.4 NG/ML Low 30.0-100. 0 Lyme Disease SCRN With Confirm 01/13/[address] [address] [phone] Lyme Disease IgG/IgM Antibodie <0.91 ISR Normal 0 .00-0.90 2 Lyme Disease IgM Ab Quantitati <0.80 index Normal 0.00-0.79 3 Laboratory test finding 01/13/[address] [address] [phone] Ferritin 15 NG/ML Normal 8-252 Vitamin B12 Level 347 pg/mL Normal 247-911 4 Total Iron Binding Capacit 01/13/[address] [address] [phone] Iron (Fe) 72 g/dL Normal 50-170 Total Iron Binding Capacity 342 g/dL Normal 250-450 Percent Saturation 21.1 % Normal 13.2-45.0 Laboratory test finding 01/13/[address] [address] [phone] Thyroid Stimulating Hormone 0.795 uIU/ML Normal 0. 358-3.740 Free T4 1.03 ng/dL Normal 0.76-1.46 Inhouse Ua 11/18/2020 Inhouse Inhouse Leukocytes neg Inhouse Nitrite neg Inhouse Urobilinogen neg Inhouse Protein neg Inhouse PH 6 Inhouse Hemoglobin neg Inhouse Specific [place] 0.010 Inhouse Ketones neg Inhouse Bilirubin neg Inhouse Glucose neg Laboratory test finding 11/18/[address] [address] [phone] Urine Culture FULL REPORT IN L <SEE NOTE> Normal 5 1 Units are mL/min/1.73 m2 Chronic Kidney Disease Staging per NKF: Stage I & II GFR >=60 Normal to Mildly Decreased Stage III GFR 30-59 Moderately Decreased Stage IV GFR 15-29 Severely Decreased Stage V GFR <15 Very Little GFR Left ESRD GFR <15 on ICT SYSTEMS TEST ENGINEER 2 Negative <0.91 Equivocal 0.91 - 1.09 Positive >1.09 3 Negative <0.80 Equivocal 0.80 - 1.19 Positive >1.19 . IgM levels may peak at 3-6 weeks post infection, then gradually decline. Performed at: RN - [facility] [address] [id number] Clinical Courier: Lissy Pacheco MD, Phone: [phone] VITAMIN B12 NORMAL RANGE NORMAL 247 - 911 PG/ML INDETERMINATE 211 - 246 PG/ML DEFICIENT LESS THAN 211 PG/ML 5 FULL REPORT IN LAB NOTES (eC W [...] ESBL Procedures Date Code Description Status 01/06/2021 58382 Office/Outpatient Established Mo d MDM 30-39 Min Completed 12/09/2020 01949 Office/Outpatient Established Lo w MDM 20-29 Min Completed 11/18/2020 96707 Preventive Visit Est 40-64 Yrs C ompleted 11/18/2020 69576 Office/Outpatient Established Lo w MDM 20-29 Min Completed 08/25/2020 19439 Office/Outpatient Established Mo d MDM 30-39 Min Completed 07/28/2020 50611 Office/Outpatient Established Lo w MDM 20-29 Min Completed Medical Devices Description No Information Available Encounters Type Date Location Provider Dx Diagnosis Office Visit 01/06/2021 2:40p [facility] Leona Weeks D.O. I10 Essential (primary) hyperten eleni R53.83 Other fatigue F90.0 Attn-defct hyperactivity dis order, predom inattentive type F32.81 Premenstrual dysphoric disor bobby Z85.3 Personal history of malignan t neoplasm of breast N83.202 Unspecified ovarian cyst, le ft side R68.82 Decreased libido Office Visit 12/09/2020 1:30p [facility] Jasvir Weeks D.O. I10 Essential (primary) hyperten eleni R53.83 Other fatigue Office Visit 11/18/2020 4:00p [facility] Leona Weeks D.O. Z00.01 Encounter for general [...] N39.41 Urge incontinence Office Visit 08/25/2020 1:15p [facility] MANOJ Cage F90.0 Attn-defct hyperactivity dis order, predom inattentive type F32.81 Premenstrual dysphoric disor bobby G47.00 Insomnia, unspecified Office Visit 07/28/2020 1:00p [facility] MANOJ Green G47.00 Insomnia, unspecified F90.0 Attn-defct hyperactivity dis order, predom inattentive type Assessments Date Code Description Provider 01/06/2021 I10 Essential (primary) hypertension Juan F MadisonOEmperatriz 01/06/2021 R53.83 Other fatigue Leona martinez, D.O. 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 01/06/2021 F32.81 Premenstrual dysphoric disorder Leonamariya Morrisber, D.O. 01/06/2021 Z85.3 Personal history of malignant ne oplasm of breast Leonamariya BloomIonMaico Hernandez, D.O. 01/06/2021 N83.202 Unspecified ovarian cyst, left s arnoldo Leonamariya BloomIonDenis, D.O. 01/06/2021 R68.82 Decreased libido Leonamariya Malloy camden D.O. 12/09/2020 I10 Essential (primary) hypertension Leona Weeks, D.O. 12/09/2020 R53.83 Other fatigue Leona Lv juan, D.O. 11/18/2020 Z00.01 Encounter for genera l adult medical examination with abnormal findings Leona Weeks D.O. 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 11/18/2020 F32.81 Premenstrual dysphoric disorder Leona GutierreznoDenis, D.O. 11/18/2020 G47.00 Insomnia, unspecified Leonamariya Painting Kings, D.O. 11/18/2020 Z85.3 Personal history of malignant ne oplasm of breast Leonamariya BloomIon- Mary, D.O. 11/18/2020 Z12.11 Encounter for screening for [...] 1:30 pm - Leona Weeks D.O. at [facility] Functional Status Description No Information Available [...] [address] [facility] [place] [address] [phone] Stefano Varghese M.D. This is a 45 year old female with history of breast cancer. She has never had colonoscopy and given her history, screening at 45 seems prudent. Please evaluate and treat. Sent 12/29/2020 [address] [facility] [address] [place] [address] [phone]
--- OUTSIDE RECORDS SUMMARY | 2021-03-05 10:24 | CCD | Continuity of Care Document ---
Author Author Kayla WEEKS D.O. Organization Unknown Address [address] [place] [address] Phone [phone] Care Team Providers Care Stitch Bonding Machine Drawer In Name Role Phone Leona Weeks D.O. AUTM Gallo Linn MD AUTM [phone] Mason Hernandez M.D. AUTM [phone] Stefano Varghese M.D. AUTM [phone] Problems Active Problems Provider Date Disorder of [...] one capsule every morning by mouth istop: [id number] 30caps F90.0 Juan F BishopO. 08/25/2020 Hydroxyzine HCL 25mg Tablets 1-2 tablet by mouth every night 90tabs Leona Weeks D.O. 03/2021 Zolpidem Tartrate ER 12.5mg Tablet s ER Take One Tablet By Mouth Every Day Before Bed Maximum Daily Dose = 1 Tablet 30tabs G47.00 Leona Weeks D.O. 07/15/2020 Fluticasone Propionate Nasal [place] 50mcg/Act Suspension two sprays each nostril [...] F O2 % BldC Oximetry 99 % [place] Body Weight 125 lb 11/18/2020 3:43pm BP Systolic 180 mmHg BP Diastolic 110 mmHg Height 65 inches 5'5" Weight 181.00 lb BMI (Body Mass Index) 30.1 kg/m2 Heart Rate 68 /min Respiratory Rate 14 /min Body Temperature 98.3 F O2 % BldC Oximetry 99 % [place] Body Weight 125 lb Results Test Acquired Date Facility Test Result H/L Range Note Inhouse Ua 11/18/2020 Inhouse Inhouse Leukocytes neg Inhouse Nitrite neg Inhouse Urobilinogen neg Inhouse Protein neg Inhouse PH 6 Inhouse Hemoglobin neg Inhouse Specific [place] 0.010 Inhouse Ketones neg Inhouse Bilirubin neg Inhouse Glucose neg Laboratory test finding 11/18/2020 [place] [id number] [phone] Urine Culture FULL REPORT IN L <SEE [...] ESBL Procedures Date Code Description Status 12/09/2020 46097 Office/Outpatient Established Lo w MDM 20-29 Min Completed 11/18/2020 49139 Preventive Visit Est 40-64 Yrs C ompleted 11/18/2020 09910 Office/Outpatient Established Lo w MDM 20-29 Min Completed 08/25/2020 54891 Office/Outpatient Established Mo d MDM 30-39 Min Completed 07/28/2020 89945 Office/Outpatient Established Lo w MDM 20-29 Min Completed 06/26/2020 67704 Office/Outpatient Established Mo d MDM 30-39 Min Completed Medical Devices Description No Information Available Encounters Type Date Location Provider Dx Diagnosis Office Visit 12/09/2020 1:30p [facility] Jasvir Weeks D.O. I10 Essential (primary) hyperten eleni R53.83 Other fatigue Office Visit 11/18/2020 4:00p [facility] Jasvir Weeks D.O. Z00.01 Encounter for general [...] N39.41 Urge incontinence Office Visit 08/25/2020 1:15p [facility] MANOJ Green F90.0 Attn-defct hyperactivity dis order, predom inattentive type F32.81 Premenstrual dysphoric disor bobby G47.00 Insomnia, unspecified Office Visit 07/28/2020 1:00p [facility] MANOJ Green G47.00 Insomnia, unspecified F90.0 Attn-defct hyperactivity dis order, predom inattentive type Office Visit 06/26/2020 11:00a [facility] MANOJ Green F32.81 Premenstrual dysphoric disor bobby [...] Weeks D.O. at [facility] Functional Status Description No Information Available Mental Status Description No Information Available Referrals Refer to Reason for Referral Status Appt Date Stefano Varghese M.D. This is a 45 year old female with history of breast cancer. She has never had colonoscopy and given her history, screening at 45 seems prudent. Please evaluate and treat. Sent 12/29/[address] [address] [phone]
--- OUTSIDE RECORDS SUMMARY | 2021-03-05 10:24 | CCD | Continuity of Care Document ---
Author Author Kayla UGARTE PA Organization Unknown Address [address] [facility] [address] [place] [address] Phone [phone] Care Team Providers Care Vat House Supervisor Name Role Phone Leona Weeks D.O. AUTM AUTM Unavailable Problems Description No Information Available Social History Type Date Description Comments Sex Unknown ETOH Use 1-2 A Month Tobacco Use Start: Unknown Denies Smoking Recreational Drug Use Denies Drug Use Exercise Type/Frequency Lifts weights 5 times a week Exercise Type/Frequency Walks 5 times a week Allergies, Adverse Reactions, Alerts Description No Known Drug Allergies Medications Active Medications SIG Qnty Indications Ordering Provide r Date Vyvanse 40mg Capsules 1 tab by mouth every day Unknown Lisinopril 10mg Tablets Take One Tablet By Mouth Every Day Unknown Ambien CR 12.5mg Tablets ER 1 tab by mouth every day at bedtime Unknown Multizyme 3 tabs by mouth every day Unknown Immunizations Description No Information Available Vital Signs Date Vital Result Comment 12/29/2020 1:27pm BP Systolic 130 mmHg BP Diastolic 80 mmHg Body Temperature 98.4 F Height 65 inches 5'5" Weight 181.00 lb BMI (Body Mass Index) 30.1 kg/m2 [place] Body Weight 125 lb Weight 82.102 kg BSA (Body Surface Area) 1.90 m2 10/03/2017 10:33am BP Systolic 110 mmHg BP Diastolic 64 mmHg Height 65 inches 5'5" Weight 168.50 lb BMI (Body Mass Index) 28.0 kg/m2 [place] Body Weight 125 lb Weight 76.432 kg BSA (Body Surface Area) 1.84 m2 Results Description No Information Available Procedures Date Code Description Status 12/29/2020 36873 Office/Outpatient Established Lo w MDM 20-29 Min Completed Medical Devices Description No Information Available Encounters Type Date Location Provider Dx Diagnosis Office Visit 12/29/2020 1:30p [facility] MANOJ Hernandez Z12.11 Encounter for screening for malignant ne oplasm of colon Z85.3 Personal history of malignan t neoplasm of breast Assessments Date Code Description Provider 12/29/2020 Z12.11 Encounter for screening for eagle gnant neoplasm of colon MANOJ Hernandez 12/29/2020 Z85.3 Personal history of malignant ne oplasm of breast MANOJ Hernandez Plan of Treatment Future Appointment(s):* 03/18/2021 10:15 am - MANOJ Hernandez at [facility] * 03/05/2021 12:15 pm - Stefano Varghese JR, MD at [facility] 12/29/2020 - MANOJ Hernandez* Z12.11 Encounter for screening for malignant neoplasm of colon * Z85.3 Personal history of malignant neoplasm of breast Functional Status Description No Information Available Mental Status Description No Information Available Referrals Refer to Reason for Referral Status Appt Date Stefano Varghese M.D. COLONOSCOPY Scheduled 12/29/2020 [facility] General Surgery [address] [id number] [phone]
--- OUTSIDE RECORDS SUMMARY | 2021-03-05 10:24 | CCD | Continuity of Care Document ---
Author Author Kayla WEEKS D.O. Organization Unknown Address [id number] [place] [address] Phone [phone] Care Team Providers Care Finished Metal Repairer Name Role Phone Leona Weeks D.O. AUTM Gallo Linn MD AUTM [phone] Mason Hernandez M.D. AUTM [phone] Stefano Varghese M.D. AUTM [phone] Problems Active Problems Provider Date Disorder of [...] one capsule every morning by mouth istop: 610002867 30caps F90.0 Kiera Bishop.O. 08/25/2020 Hydroxyzine HCL 25mg Tablets 1-2 tablet by mouth every night 90tabs Juan F MadisonOEmperatriz 03/2021 Zolpidem Tartrate ER 12.5mg Tablet s ER take one tablet by mouth every day before bed maximum daily dose = 1 tablet istop: 405645832 30tabs G47.00 Juan F MadisonOEmperatriz 06/18 Fluticasone Propionate Nasal [place] 50mcg/Act Suspension two sprays each nostril once [...] F O2 % BldC Oximetry 99 % [place] Body Weight 125 lb 12/09/2020 1:30pm BP Systolic 164 mmHg BP Diastolic 100 mmHg Height 65 inches 5'5" Weight 177.25 lb BMI (Body Mass Index) 29.5 kg/m2 Heart Rate 90 /min Respiratory Rate 14 /min Body Temperature 97.0 F O2 % BldC Oximetry 99 % [place] Body Weight 125 lb Results Test Acquired Date Facility Test Result H/L Range Note Inhouse Ua 11/18/2020 Inhouse Inhouse Leukocytes neg Inhouse Nitrite neg Inhouse Urobilinogen neg Inhouse Protein neg Inhouse PH 6 Inhouse Hemoglobin neg Inhouse Specific [facility] 0.010 Inhouse Ketones neg Inhouse Bilirubin neg Inhouse Glucose neg Laboratory test finding 11/18/2020 [place] [id number] [phone] Urine Culture FULL REPORT IN L <SEE [...] ESBL Procedures Date Code Description Status 01/06/2021 61360 Office/Outpatient Established Mo d MDM 30-39 Min Completed 12/09/2020 05608 Office/Outpatient Established Lo w MDM 20-29 Min Completed 11/18/2020 70411 Preventive Visit Est 40-64 Yrs C ompleted 11/18/2020 06077 Office/Outpatient Established Lo w MDM 20-29 Min Completed 08/25/2020 77885 Office/Outpatient Established Mo d MDM 30-39 Min Completed 07/28/2020 65908 Office/Outpatient Established Lo w MDM 20-29 Min Completed Medical Devices Description No Information Available Encounters Type Date Location Provider Dx Diagnosis Office Visit 01/06/2021 2:40p [facility] Juan F WayneO. I10 Essential (primary) hyperten eleni R53.83 Other fatigue F90.0 Attn-defct hyperactivity dis order, predom inattentive type F32.81 Premenstrual dysphoric disor bobby Z85.3 Personal history of malignan t neoplasm of breast N83.202 Unspecified ovarian cyst, le ft side R68.82 Decreased libido Office Visit 12/09/2020 1:30p [facility] Juan F WayneO. I10 Essential (primary) hyperten eleni R53.83 Other fatigue Office Visit 11/18/2020 4:00p [facility] Jasvir Weeks D.O. Z00.01 Encounter for [...] G47.00 Insomnia, unspecified Office Visit 07/28/2020 1:00p [facility] MANOJ Cage G47.00 Insomnia, unspecified F90.0 Attn-defct [...] 1:30 pm - Leona Weeks D.O. at [facility] Functional Status Description No Information Available Mental Status Description No Information Available Referrals Refer to Reason for Referral Status Appt Date Mason Hernandez M.D. This is a mutual patient who underwent hysterectomy in 06/2020 and now presents with 7.1 cm complex ovarian mass. She has a history of breast cancer as well. Please evaluate and treat. Created [facility] [address] [facility] [address] [place] [address] [phone] Stefano Varghese M.D. This is a 45 year old female with history of breast cancer. She has never had colonoscopy and given her history, screening at 45 seems prudent. Please evaluate and treat. Sent 12/29/2020 [address] [facility] [address] [place] [address] [phone]
--- OUTSIDE RECORDS SUMMARY | 2021-03-05 10:25 | CCD ---
Author Author [facility] Organization [facility] Address Unknown Phone Unavailable Care Team Providers Care Mathematics Professor Name Role Phone MICHELLE, DOTTIE Unavailable Unavailable MICHELLE, DOTTIE Unavailable Unavailable MICHELLE, DOTITE Unavailable Unavailable MICHELLE, DOTTIE Unavailable Unavailable MICHELLE, DOTTIE Unavailable Unavailable MICHELLE, DOTTIE Unavailable Unavailable MICHELLE, DOTTIE Unavailable Unavailable MICHELLE, DOTTIE Unavailable Unavailable MICHELLE, DOTTIE Unavailable Unavailable MICHELLE, DOTTIE Unavailable Unavailable MICHELLE, DOTTIE Unavailable Unavailable MICHELLE, DOTTIE Unavailable Unavailable MICHELLE, DOTTIE Unavailable Unavailable MICHELLE, DOTTIE Unavailable Unavailable MICHELLE, DOTTIE Unavailable Unavailable MICHELLE, DOTTIE Unavailable Unavailable MICHELLE, DOTTIE Unavailable Unavailable MICHELLE, DOTTIE Unavailable Unavailable MICHELLE, DOTTIE Unavailable Unavailable MICHELLE, DOTTIE Unavailable Unavailable MICHELLE, DOTTIE Unavailable Unavailable MICHELLE, DOTTIE Unavailable Unavailable MICHELLE, DOTTIE Unavailable Unavailable MICHELLE, DOTTIE Unavailable Unavailable MICHELLE, DOTTIE Unavailable Unavailable MICHELLE, DOTTIE Unavailable Unavailable MICHELLE, DOTTIE Unavailable Unavailable MICHELLE, DOTTIE Unavailable Unavailable MICHELLE, DOTTIE Unavailable Unavailable MICHELLE, DOTTIE Unavailable Unavailable MICHELLE, DOTTIE Unavailable Unavailable MICHELLE, DOTTIE Unavailable Unavailable MICHELLE, DOTTIE Unavailable Unavailable Kiera MALAGON MD Unavailable Unavailable Kiera MALAGON MD Unavailable Unavailable Kiera MALAGON MD Unavailable Unavailable Kiera MALAGON MD Unavailable Unavailable Kiera MALAGON MD Unavailable Unavailable Kiera MALAGON MD Unavailable Unavailable VESNAKiera CHAUDHRY MD Unavailable Unavailable VESNAKiera CHAUDHRY MD Unavailable Unavailable VESNAKiera CHAUDHRY MD Unavailable Unavailable VESNAKiera CHAUDHRY MD Unavailable Unavailable VESNAKiera MD Unavailable Unavailable VESNAKiera MD Unavailable Unavailable VESNAKiera CHAUDHRY MD Unavailable Unavailable VESNAKiera CHAUDHRY MD Unavailable Unavailable VESNAKiera CHAUDHRY MD Unavailable Unavailable VESNAKiera CHAUDHRY MD Unavailable Unavailable VESNAKiera MD Unavailable Unavailable VESNAKiera CHAUDHRY MD Unavailable Unavailable VESNAKiera MD Unavailable Unavailable VESNAKiera MD Unavailable Unavailable VESNAKiera MD Unavailable Unavailable VESNAKiera MD Unavailable Unavailable VESNAKiera CHAUDHRY MD Unavailable Unavailable VESNAKiera CHAUDHRY MD Unavailable Unavailable VESNAKiera CHAUDHRY MD Unavailable Unavailable EVSNAKiera CHAUDHRY MD Unavailable Unavailable VESNAKiera CHAUDHRY MD Unavailable Unavailable VESNAKiera CHAUDHRY MD Unavailable Unavailable VESNAKiera CHAUDHRY MD Unavailable Unavailable VESNAKiera CHAUDHRY MD Unavailable Unavailable VESNAKiera CHAUDHRY MD Unavailable Unavailable VESNAKiera CHAUDHRY MD Unavailable Unavailable VESNAKiera CHAUDHRY MD Unavailable Unavailable VESNAKiera CHAUDHRY MD Unavailable Unavailable VESNAKiera CHAUDHRY MD Unavailable Unavailable VESNAKiera CHAUDHRY MD Unavailable Unavailable VESNAKiera CHAUDHRY MD Unavailable Unavailable VESNAKiera CHAUDHRY MD Unavailable Unavailable VESNAKiera CHAUDHRY MD Unavailable Unavailable VESNAKiera CHAUDHRY MD Unavailable Unavailable VESNAKiera CHAUDHRY MD Unavailable Unavailable VESNAKiera CHAUDHRY MD Unavailable Unavailable VESNAKiera CHAUDHRY MD Unavailable Unavailable VESNAKiera CHAUDHRY MD Unavailable Unavailable VESNAKiera CHAUDHRY MD Unavailable Unavailable VESNAKiera CHAUDHRY MD Unavailable Unavailable VESNAKiera CHAUDHRY MD Unavailable Unavailable VESNAKiera CHAUDHRY MD Unavailable Unavailable VESNAKiera CHAUDHRY MD Unavailable Unavailable VESNAKiera CHAUDHRY MD Unavailable Unavailable VESNAKiera CHAUDHRY MD Unavailable Unavailable VESNAKiera CHAUDHRY MD Unavailable Unavailable VESNAKiera CHAUDHRY MD Unavailable Unavailable VESNAKiera CHAUDHRY MD Unavailable Unavailable VESNAKiera CHAUDHRY MD Unavailable Unavailable VESNAKiera CHAUDHRY MD Unavailable Unavailable VESNAKiera CHAUDHRY MD Unavailable Unavailable VESNAKiera CHAUDHRY MD Unavailable Unavailable VESNAKiera CHAUDHRY MD Unavailable Unavailable VESNAKiera CHAUDHRY MD Unavailable Unavailable VESNAKiera CHAUDHRY MD Unavailable Unavailable VESNAKiera CHAUDHRY MD Unavailable Unavailable Kiera MALAGON MD Unavailable Unavailable VESNAKiera CHAUDHRY MD Unavailable Unavailable VESNAKiera CHAUDHRY MD Unavailable Unavailable VESNAKiera CHAUDHRY MD Unavailable Unavailable VESNAKiera CHAUDHRY MD Unavailable Unavailable VESNAKiera CHAUDHRY MD Unavailable Unavailable VESNAiKera CHAUDHRY MD Unavailable Unavailable Kiera MALAGON MD Unavailable Unavailable Kiera MALAGON MD Unavailable Unavailable Kiera MALAGON MD Unavailable Unavailable Kiera MALAGON MD Unavailable Unavailable Kiera MALAGON MD Unavailable Unavailable Kiera MALAGON MD Unavailable Unavailable Kiera MALAGON MD Unavailable Unavailable Kiera MALAGON MD Unavailable Unavailable Kiera MALAGON MD Unavailable Unavailable Kiera MALAGON MD Unavailable Unavailable Kiera MALAGON MD Unavailable Unavailable Kiera MALAGON MD Unavailable Unavailable Kiera MALAGON MD Unavailable Unavailable Kiera MALAGON MD Unavailable Unavailable Kiera MALAGON MD Unavailable Unavailable Kiera MALAGON MD Unavailable Unavailable Kiera MALAGON MD Unavailable Unavailable Kiera MALAGON MD Unavailable Unavailable Kiera MALAGON MD Unavailable Unavailable Kiera MALAGON MD Unavailable Unavailable Kiera MALAGON MD Unavailable Unavailable Kiera MALAGON MD Unavailable Unavailable Kiera MALAGON MD Unavailable Unavailable Kiera MALAGON MD Unavailable Unavailable Kiera MALAGON MD Unavailable Unavailable Kiera MALAGON MD Unavailable Unavailable Kiera MALAGON MD Unavailable Unavailable Kiera MALAGON MD Unavailable Unavailable Kiera MALAGON MD Unavailable Unavailable Kiera MALAGON MD Unavailable Unavailable Kiera MALAGON MD Unavailable Unavailable Kiera MALAGON MD Unavailable Unavailable Kiera MALAGON MD Unavailable Unavailable Kiera MALAGON MD Unavailable Unavailable Kiera MALAGON MD Unavailable Unavailable Kiera MALAGON MD Unavailable Unavailable Kiera MALAGON MD Unavailable Unavailable Kiera MALAGON MD Unavailable Unavailable Kiera MALAGON MD Unavailable Unavailable Kiera MALAGON MD Unavailable Unavailable Kiera MALAGON MD Unavailable Unavailable Kiera MALAGON MD Unavailable Unavailable Kiera MALAGON MD Unavailable Unavailable Kiera MALAGON MD Unavailable Unavailable Kiera MALAGON MD Unavailable Unavailable Kiera MALAGON MD Unavailable Unavailable KEELEY-MICA, LEONA DO Unavailable Unavailable KEELEY-MICA, LEONA DO Unavailable Unavailable KEELEY-MICA, LEONA DO Unavailable Unavailable KEELEY-MICA, LEONA DO Unavailable Unavailable KEELEY-MICA, LEONA DO Unavailable Unavailable KEELEY-MICA, LEONA DO Unavailable Unavailable KEELEY-MICA, LEONA DO Unavailable Unavailable KEELEY-MICA, LEONA DO Unavailable Unavailable KEELEY-MICA, LEONA DO Unavailable Unavailable KEELEY-MICA, LEONA DO Unavailable Unavailable KEELEY-MICA, LEONA DO Unavailable Unavailable KEELEY-MICA, LEONA DO Unavailable Unavailable KEELEY-MICA, LEONA DO Unavailable Unavailable KEELEY-MICA, LEONA DO Unavailable Unavailable KEELEY-MICA, LEONA DO Unavailable Unavailable KEELEY-MICA, LEONA DO Unavailable Unavailable KEELEY-MICA, LEONA DO Unavailable Unavailable KEELEY-MICA, LEONA DO Unavailable Unavailable KEELEY-MICA, LEONA DO Unavailable Unavailable KEELEY-MICA, LEONA DO Unavailable Unavailable KEELEY-MICA, LEONA DO Unavailable Unavailable KEELEY-MICA, LEONA DO Unavailable Unavailable KEELEY-MICA, LEONA DO Unavailable Unavailable KEELEY-MICA, LEONA DO Unavailable Unavailable KEELEY-MICA, LEONA DO Unavailable Unavailable KEELEY-MICA, LEONA DO Unavailable Unavailable KEELEY-MICA, LEONA DO Unavailable Unavailable KEELEY-MICA, LEONA DO Unavailable Unavailable KEELEY-MICA, LEONA DO Unavailable Unavailable KEELEY-MICA, LEONA DO Unavailable Unavailable KEELEY-MICA, LEONA DO Unavailable Unavailable KEELEY-MICA, LEONA DO Unavailable Unavailable KEELEY-MICA, LEONA DO Unavailable Unavailable KEELEY-MICA, LEONA DO Unavailable Unavailable KEELEY-MICA, LEONA DO Unavailable Unavailable KEELEY-MICA, LEONA DO Unavailable Unavailable KEELEY-MICA, LEONA DO Unavailable Unavailable KEELEY-MICA, LEONA DO Unavailable Unavailable KEELEY-MICA, LEONA DO Unavailable Unavailable KEELEY-MICA, LEONA DO Unavailable Unavailable KEELEY-MICA, LEONA DO Unavailable Unavailable KEELEY-MICA, LEONA DO Unavailable Unavailable KEELEY-MICA, LEONA DO Unavailable Unavailable KEELEY-MICA, LEONA DO Unavailable Unavailable KEELEY-MICA, LEONA DO Unavailable Unavailable KEELEY-MICA, LEONA DO Unavailable Unavailable KEELEY-MICA, LEONA DO Unavailable Unavailable KEELEY-MICA, LEONA DO Unavailable Unavailable KEELEY-MICA, LEONA DO Unavailable Unavailable KEELEY-MICA, LEONA DO Unavailable Unavailable KEELEY-MICA, LEONA DO Unavailable Unavailable KEELEY-MICA, LEONA DO Unavailable Unavailable KEELEY-MICA, LEONA DO Unavailable Unavailable KEELEY-MICA, LEONA DO Unavailable Unavailable KEELEY-MICA, LEONA DO Unavailable Unavailable KEELEY-MICA, LEONA DO Unavailable Unavailable KEELEY-MICA, LEONA DO Unavailable Unavailable KEELEY-MICA, LEONA DO Unavailable Unavailable KEELEY-MICA, LEONA DO Unavailable Unavailable KEELEY-MICA, LEONA DO Unavailable Unavailable KEELEY-MICA, LEONA DO Unavailable Unavailable KEELEY-MICA, LEONA DO Unavailable Unavailable KEELEY-MICA, LEONA DO Unavailable Unavailable KEELEY-MICA, LEONA DO Unavailable Unavailable KEELEY-MICA, LEONA DO Unavailable Unavailable KEELEY-MICA, LEONA DO Unavailable Unavailable KEELEY-MICA, LEONA DO Unavailable Unavailable KEELEY-MICA, LEONA DO Unavailable Unavailable KEELEY-MICA, LEONA DO Unavailable Unavailable KEELEY-MICA, LEONA DO Unavailable Unavailable KEELEY-MICA, LEONA DO Unavailable Unavailable KEELEY-MICA, LEONA DO Unavailable Unavailable KEELEY-MICA, LEONA DO Unavailable Unavailable KEELEY-MICA, LEONA DO Unavailable Unavailable KEELEY-MICA, LEONA DO Unavailable Unavailable KEELEY-MICA, LEONA DO Unavailable Unavailable KEELEY-MICA, LEONA DO Unavailable Unavailable KEELEY-MICA, LEONA DO Unavailable Unavailable KEELEY-MICA, LEONA DO Unavailable Unavailable KEELEY-MICA, LEONA DO Unavailable Unavailable KEELEY-MICA, LEONA DO Unavailable Unavailable KEELEY-MICA, LEONA DO Unavailable Unavailable KEELEY-MICA, LEONA DO Unavailable Unavailable KEELEY-MICA, LEONA DO Unavailable Unavailable O'mahi, A Maurice PA Unavailable Unavailable O'mahi, A Maurice PA Unavailable Unavailable O'mahi, A Maurice PA Unavailable Unavailable O'mahi, A Maurice PA Unavailable Unavailable O'mahi, A Maurice PA Unavailable Unavailable O'mahi, A Maurice PA Unavailable Unavailable O'mahi, A Maurice PA Unavailable Unavailable O'mahi, A Maurice PA Unavailable Unavailable O'mahi, A Maurice PA Unavailable Unavailable O'mahi, A Maurice PA Unavailable Unavailable O'mahi, A Maurice PA Unavailable Unavailable O'mahi, A Maurice PA Unavailable Unavailable O'mahi, A Maurice PA Unavailable Unavailable O'mahi, A Maurice PA Unavailable Unavailable O'mahi, A Maurice PA Unavailable Unavailable O'mahi, A Maurice PA Unavailable Unavailable O'mahi, A Maurice PA Unavailable Unavailable O'mahi, A Maurice PA Unavailable Unavailable O'mahi, A Maurice PA Unavailable Unavailable O'mahi, A Maurice PA Unavailable Unavailable O'mahi, A Maurice PA Unavailable Unavailable O'mahi, A Maurice PA Unavailable Unavailable O'mahi, A Maurice PA Unavailable Unavailable O'mahi, A Maurice PA Unavailable Unavailable O'mahi, A Maurice PA Unavailable Unavailable O'mahi, A Maurice PA Unavailable Unavailable O'mahi, A Maurice PA Unavailable Unavailable O'mahi, A Maurice PA Unavailable Unavailable O'mahi, A Maurice PA Unavailable Unavailable O'mahi, A Maurice PA Unavailable Unavailable O'mahi, A Maurice PA Unavailable Unavailable O'mahi, A Maurice PA Unavailable Unavailable O'mahi, A Maurice PA Unavailable Unavailable Lobo, L Henrietta RPA Unavailable Unavailable Lobo, L Henrietta RPA Unavailable Unavailable Lobo, L Henrietta RPA Unavailable Unavailable Lobo, L Henrietta RPA Unavailable Unavailable Lobo, L Henrietta RPA Unavailable Unavailable Lobo, L Henrietta RPA Unavailable Unavailable Lobo, L Henrietta RPA Unavailable Unavailable Lobo, L Henrietta RPA Unavailable Unavailable Lobo, L Hernietta RPA Unavailable Unavailable Lobo, L Henrietta RPA Unavailable Unavailable Lobo, L Henrietta RPA Unavailable Unavailable Lobo, L Henrietta RPA Unavailable Unavailable Lobo, L Henrietta RPA Unavailable Unavailable Lobo, L Henrietta RPA Unavailable Unavailable Lobo, L Henrietta RPA Unavailable Unavailable Lobo, L Henrietta RPA Unavailable Unavailable Lobo, L Henrietta RPA Unavailable Unavailable Lobo, L Henrietta RPA Unavailable Unavailable Lobo, L Henrietta RPA Unavailable Unavailable Lobo, L Henriteta RPA Unavailable Unavailable Lobo, L Henrietta RPA Unavailable Unavailable Lobo, L Henrietta RPA Unavailable Unavailable Lobo, L Henrietta RPA Unavailable Unavailable Lobo, L Henrietta RPA Unavailable Unavailable Lobo, L Henrietta RPA Unavailable Unavailable Lobo, L Henrietta RPA Unavailable Unavailable Lobo, L Henrietta RPA Unavailable Unavailable Lobo, L Henrietta RPA Unavailable Unavailable Lobo, L Henrietta RPA Unavailable Unavailable Lobo, L Henrietta RPA Unavailable Unavailable Lobo, L Henrietta RPA Unavailable Unavailable Lobo, L Henrietta RPA Unavailable Unavailable Re-disclosure Warning The records that you are about to access may contain information from federally-assisted alcohol or drug abuse programs. If such information is present, then the following federally mandated warning applies: This information has been disclosed to you from records protected by federal confidentiality rules (42 CFR part 2). The federal rules prohibit you from making any further disclosure of this information unless further disclosure is expressly permitted by the written consent of the person to whom it pertains or as otherwise permitted by 42 CFR part 2. A general authorization for the release of medical or other information is NOT sufficient for this purpose. The Federal rules restrict any use of the information to criminally investigate or prosecute any alcohol or drug abuse patient.The records that you are about to access may contain highly sensitive health information, the redisclosure of which is protected by Article 27-F of the [facility] Public Health law. If you continue you may have access to information: Regarding HIV / AIDS; Provided by facilities licensed or operated by the [facility] Office of Mental Health; or Provided by the [facility] Office for People With Developmental Disabilities. If such information is present, then the following [facility] mandated warning applies: This information has been disclosed to you from confidential records which are protected by state law. State law prohibits you from making any further disclosure of this information without the specific written consent of the person to whom it pertains, or as otherwise permitted by law. Any unauthorized further disclosure in violation of state law may result in a fine or [place] [facility] sentence or both. A general authorization for the release of medical or other information is NOT sufficient authorization for further disc losure. Allergies and Adverse Reactions Type Description Substance Reaction Status Data Source(s ) Drug Allergy NKDA NKDA [facility] ([facility]) Family History Family Member Name Family Member Gender Family Member Status Date o f Status Description Data Source(s) Unknown Unknown Problem [facility] ([facility]) Unknown Male Problem [facility] ([facility]) Encounters Encounter Providers Location Date Indications Data Source(s ) Outpatient Attender: LEONA JAMES [facility] 03/02/2021 12:00:00 PM EST [facility] ([facility]) Outpatient Attender: LEONA JAMES [facility] 01/28/2021 01:30:00 PM EDT [facility] ([facility]) Outpatient Attender: LEONA JAMES [facility] 01/06/2021 02:40:00 PM EDT [facility] ([facility]) Outpatient Attender: Henrietta Alvarez/Joel/Tate/Jamey rosas 12/29/2020 01:30:00 PM EDT [facility] ([facility]) Outpatient Attender: LEONA JAMES [facility] 12/09/2020 01:30:00 PM EDT [facility] ([facility]) Outpatient Attender: LEONA JAMES [facility] 11/18/2020 04:00:00 PM EDT [facility] ([facility]) Outpatient Attender: Maurice ARANDA [facility] 08/25/2020 01:15:00 PM EDT [facility] ([facility]) Outpatient Attender: Maurice ARANDA [facility] 07/28/2020 01:00:00 PM EDT [facility] ([facility]) Outpatient Referrer: JOSE PIERRE.PAT 2020 08:40:23 AM EDT - 07/02/2020 08:40:29 AM EDT [facility] Outpatient Attender: JOSE SERNAerrer: JOSE MENAPAT 07/02/2020 12:00:00 AM EDT - 07/02/2020 09:59:23 AM EDT [facility] Outpatient Attender: Maurice ARANDA [facility] 06/26/2020 10:00:00 AM EST [facility] ([facility]) Inpatient Attender: JOSE Thomas charlie: DOTTIE MICHELLEAdmitter: JOSE MALAGON MD [id number] 06/17/2020 01:53:34 PM EST - 07/07/2020 11:02:00 PM EDT [facility] Patient discharged. Outpatient Attender: LEONA JAMES DO [facility] 05/12/2020 07:40:00 AM EST [facility] ([facility]) Outpatient Attender: LEONA JAMES DO [facility] 01/18/2020 09:20:00 AM EDT [facility] ([facility]) Immunizations Vaccine Date Status Description Data Source(s) COVID-19 VACCINE Moderna 09/23/2020 12:00:00 AM EDT completed [facility] Vaccine Series Complete: YESThis Data wa s Submitted to [facility] Via [employer]. COVID-19 VACCINE Moderna 08/26/2020 12:00:00 AM EDT completed [facility] Vaccine Series Complete: NOThis Data was Submitted to [facility] [employer]. Medications Medication Brand Name Start Date Product Form Dose Route Admi nistrative Instructions Pharmacy Instructions Status Indications Reaction Description Data Source(s) SUPREP BOWEL PREP KIT 17.5-3.13-1.6 gram SODIUM, POTASSIUM,M AG SULFATES 02/17/2021 12:00:00 AM EDT [facility] 354 TAKE PER DOCTOR'S BOWEL PREP INSTRUCTIONS TAKE PER DOCTOR'S BOWEL PREP INSTRUCTIONS SOLD: 03/02/2021 [facility] 25 mg 02/16/2021 12:00:00 AM EDT tablet 90 TAKE ONE TO TWO TABLETS BY MOUTH EVERY DAY AT NIGHT TAKE ONE TO TWO TABLETS BY MOUTH EVERY DAY AT NIGHT SO LD: 02/16/2021 [facility] 12.5 mg 02/16/2021 12:00:00 AM EDT tablet,ext release mult iphase 30 TAKE ONE TABLET BY MOUTH AT BEDTIME MAXIMUM DAILY DOSE = 1 TAKE ONE TABLET BY MOUTH AT BEDTIME MAXIMUM DAILY DOSE = 1 SOLD: 02/16/2021 [facility] 40 mg 02/13/2021 12:00:00 AM EDT capsule 30 TAKE ONE CAPSULE BY MOUTH EVERY MORNING MAXIMUM DAILY DOSE = 1 CAPSULE TAKE ONE CAPSULE BY MOUTH EVERY MORNING MAXIMUM DAILY DOSE = 1 CAPSULE SOLD: 02/13/2021 [facility] 160 mg 01/29/2021 12:00:00 AM EDT tablet 90 TAKE ONE TABLET BY MOUTH EVERY DAY TAKE ONE TABLET BY MOUTH EVERY DAY SOLD: 02/01/2021 [facility] 1,250 mcg (50,000 unit) 01/29/2021 12:00:00 AM EDT capsule 12 TAKE 1 CAPSULE BY MOUTH ONCE WEEK TAKE 1 CAPSULE BY MOUTH ONCE WEEK SOLD: 02/01/2021 [facility] 50 mcg (2,000 unit) 01/29/2021 12:00:00 AM EDT capsule 90 TAKE ONE CAPSULE BY MOUTH EVERY DAY TAKE ONE CAPSULE BY MOUTH EVERY DAY SOLD: 02/01/2021 [facility] Cholecalciferol 2000 UNT Oral Capsule Vitamin D3 01/28/2021 12:00:00 AM EDT ORAL active MED[facility] ([facility]) valsartan 160 MG Oral Tablet Valsartan 01/28/2021 12:00:00 AM EDT ORAL active [facility] ([facility]) Ergocalciferol 89283 UNT Oral Capsule Vitamin D (Ergocalcife rol) 01/28/2021 12:00:00 AM EDT active EDENT ([facility]) Vitamin B 12 0.5 MG Oral Tablet Vitamin B-12 Sima ural 01/28/2021 12:00:00 AM EDT ORAL active [facility]ENT ([facility]) 12.5 mg 01/16/2021 12:00:00 AM EDT tablet,ext release mult iphase 30 TAKE ONE TABLET BY MOUTH EVERY DAY BEFORE BED MAXIMUM DAILY DOSE = 1 TABLET TAKE ONE TABLET BY MOUTH EVERY DAY BEFORE BED MAXIMUM DAILY DOSE = 1 TABLET SOLD: 01/17/2021 [facility] 40 mg 01/12/2021 12:00:00 AM EDT capsule 30 TAKE ONE CAPSULE BY MOUTH EVERY MORNING MAXIMUM DAILY DOSE = 1 TAKE ONE CAPSULE BY MOUTH EVERY MORNING MAXIMUM DAILY DOSE = 1 SOLD: 01/15/2021 [facility] 25 mg 01/12/2021 12:00:00 AM EDT tablet 90 TAKE 1-2 TABLETS BY MOUTH EVERY NIGHT TAKE 1-2 TABLETS BY MOUTH EVERY NIGHT SOLD: 01/15/2021 [facility] 20 mg 01/07/2021 12:00:00 AM EDT tablet 90 TAKE ONE TABLET BY MOUTH EVERY DAY TAKE ONE TABLET BY MOUTH EVERY DAY SOLD: 01/15/2021 [facility] Lisinopril 20 MG Oral Tablet Lisinopril 01/06/2021 12:00:00 AM EDT ORAL completed [facility] ([facility]) 12.5 mg 12/16/2020 12:00:00 AM EDT tablet,ext release mult iphase 30 TAKE ONE TABLET BY MOUTH EVERY DAY BEFORE BED MAXIMUM DAILY DOSE = 1 TABLET TAKE ONE TABLET BY MOUTH EVERY DAY BEFORE BED MAXIMUM DAILY DOSE = 1 TABLET SOLD: 12/16/2020 [facility] 10 mg 12/11/2020 12:00:00 AM EDT tablet 30 TAKE ONE TABLET BY MOUTH EVERY DAY TAKE ONE TABLET BY MOUTH EVERY DAY SOLD: 12/12/2020 [facility] Lisinopril 10 MG Oral Tablet Lisinopril 12/09/2020 12:00:00 AM EDT ORAL completed [facility] ([facility]) 40 mg 12/09/2020 12:00:00 AM EDT capsule 30 TAKE ONE CAPSULE BY MOUTH EVERY MORNING, MAXIMUM DAILY DOSE = 1 TAKE ONE CAPSULE BY MOUTH EVERY MORNING, MAXIMUM DAILY DOSE = 1 SOLD: 12/09/2020 [facility] NITROFURANTOIN, MACROCRYSTALS 25 MG / Ni trofurantoin, Monohydrate 75 MG Oral Capsule 100 mg NITROFURANTOIN MONOHYD/M-CRYST 11/21/2020 12:00:00 AM EDT ca psule 14 TAKE ONE CAPSULE BY MOUTH TWICE A DAY FOR 7 DAYS TAKE ONE CAPSULE BY MOUTH TWICE A DAY FOR 7 DAYS SOLD: 11/21/2020 [facility] NITROFURANTOIN, MACROCRYSTALS 25 MG / Ni trofurantoin, Monohydrate 75 MG Oral Capsule [Macrobid] Macrobid 11/21/2020 12:00:00 AM EDT ORAL completed [facility] ([facility]) 25 mg 11/16/2020 12:00:00 AM EDT tablet 90 TAKE 1-2 TABLETS BY MOUTH EVERY NIGHT TAKE 1-2 TABLETS BY MOUTH EVERY NIGHT SOLD: 11/16/2020 [facility] 12.5 mg 11/14/2020 12:00:00 AM EDT tablet,ext release mult iphase 30 TAKE ONE TABLET BY MOUTH EVERY DAY BEFORE BED MAXIMUM DAILY DOSE = 1 TAKE ONE TABLET BY MOUTH EVERY DAY BEFORE BED MAXIMUM DAILY DOSE = 1 SOLD: 11/16/2020 [facility] 40 mg 11/05/2020 12:00:00 AM EDT capsule 30 TAKE ONE CAPSULE BY MOUTH EVERY MORNING MAXIMUM DAILY DOSE = 1 CAPSULE TAKE ONE CAPSULE BY MOUTH EVERY MORNING MAXIMUM DAILY DOSE = 1 CAPSULE SOLD: 11/10/2020 [facility] 12.5 mg 10/15/2020 12:00:00 AM EDT tablet,ext release mult iphase 30 TAKE ONE TABLET BY MOUTH EVERY DAY BEFORE BED MAXIMUM DAILY DOSE = 1 TABLET TAKE ONE TABLET BY MOUTH EVERY DAY BEFORE BED MAXIMUM DAILY DOSE = 1 TABLET SOLD: 10/15/2020 [facility] 40 mg 10/02/2020 12:00:00 AM EDT capsule 30 TAKE ONE CAPSULE BY MOUTH EVERY MORNING MAXIMUM DAILY DOSE = 1 CAPSULE TAKE ONE CAPSULE BY MOUTH EVERY MORNING MAXIMUM DAILY DOSE = 1 CAPSULE SOLD: 10/04/2020 [facility] 40 mg 08/25/2020 12:00:00 AM EDT capsule 30 TAKE ONE CAPSULE BY MOUTH EVERY MORNING MAXIMUM DAILY DOSE = 1 CAPSULE TAKE ONE CAPSULE BY MOUTH EVERY MORNING MAXIMUM DAILY DOSE = 1 CAPSULE SOLD: 08/28/2020 [facility] lisdexamfetamine dimesylate 40 MG Oral Capsule [Vyvanse] Vyv anse 08/25/2020 12:00:00 AM EDT ORAL active M [facility] ([facility]) 20 mg 07/28/2020 12:00:00 AM EDT capsule 30 TAKE ONE CAPSULE BY MOUTH EVERY DAY IN THE MORNING MAXIMUM DAILY DOSE = 1 TAKE ONE CAPSULE BY MOUTH EVERY DAY IN THE MORNING MAXIMUM DAILY DOSE = 1 SOLD: 07/28/2020 [facility] 25 mg 07/28/2020 12:00:00 AM EDT tablet 90 TAKE ONE TO TWO TABLETS BY MOUTH IN THE EVENING TAKE ONE TO TWO TABLETS BY MOUTH IN THE EVENING SOLD: 2020 [facility] 25 mg 07/28/2020 12:00:00 AM EDT tablet 90 TAKE ONE TO TWO TABLETS BY MOUTH IN THE EVENING TAKE ONE TO TWO TABLETS BY MOUTH IN THE EVENING SOLD: 2020 [facility] lisdexamfetamine dimesylate 20 MG Oral Capsule [Vyvanse] Vyv anse 07/28/2020 12:00:00 AM EDT ORAL completed [facility] ([facility]) Hydroxyzine Hydrochloride 25 MG Oral Tablet Hydroxyzine HCL 07/28/2020 12:00:00 AM EDT ORAL active [facility] ([facility]) 12.5 mg 07/15/2020 12:00:00 AM EDT tablet,ext release mult iphase 30 TAKE ONE TABLET BY MOUTH EVERY DAY 1 HOUR BEFORE BED MAXIMUM DAILY DOSE = 1 TABLET TAKE ONE TABLET BY MOUTH EVERY DAY 1 HOUR BEFORE BED MAXIMUM DAILY DOSE = 1 TABLET SOLD: 07/15/2020 [facility] Zolpidem tartrate 12.5 MG Extended Release Oral Tablet Ambie n CR 07/15/2020 12:00:00 AM EDT ORAL completed [facility] ([facility]) Zolpidem tartrate 12.5 MG Extended Release Oral Tablet Zolpi dem Tartrate ER 07/15/2020 12:00:00 AM EDT ORAL active [facility] ([facility]) 12.5 mg 07/15/2020 12:00:00 AM EDT tablet,ext release mult iphase 30 TAKE ONE TABLET BY MOUTH EVERY DAY 1 HOUR BEFORE BED MAXIMUM DAILY DOSE = 1 TABLET TAKE ONE TABLET BY MOUTH EVERY DAY 1 HOUR BEFORE BED MAXIMUM DAILY DOSE = 1 TABLET SOLD: 09/14/2020 [facility] Bisacodyl 10 MG Rectal Suppository bisacodyl (DULCOLAX ) suppository 10 mg bisacodyl (DULCOLAX) suppository 10 mg 07/08/2020 12:00:00 AM EDT 10 mg Rectal active 10 mg, Rectal, Daily PRN, constipation, Starting Tue07/08/20 at 0000, Post-op [facility] Medication administered onsite Simethicone 80 MG Chewable Tablet simethicone (MYLICON ) chewable tablet 80 mg simethicone (MYLICON) chewable tablet 80 mg 07/08/2020 12:00:00 AM EDT 80 mg Oral active 80 mg, Oral, 3 times daily, First dose on Tue07/08/20 at 0900, Post-op [facility] Medication administered onsite heparin (porcine) injection 5,000 Units [id number] 07/08/19 07:00:00 PM EDT 5000 U Subcutaneous active 5,000 Units , Subcutaneous, Every 8 hours (scheduled), First dose on Tue07/07/20 at 1900, Post-op
If platelet count is less than 90,000 or hematocrit is less than 25, or if there is a 5 point decreas e in hematocrit, do not give the dose and call physician/designee.
[facility] Medication administered onsite Acetaminophen 500 MG Oral Tablet acetaminophen (TYLENO L) tablet 1,000 mg acetaminophen (TYLENOL) tablet 1,000 mg 07/07/2020 03:00:00 PM EDT 1000 mg Oral active 1,000 mg, Oral , Every 6 hours (relative), First dose on Tue07/07/20 at 1500, Post-op
"Maximum dose of acetaminophen is 4,000 mg from all sources in 24 hours."
[facility] Medication administered onsite Calcium Chloride 0.001 MEQ/ML / Glucose 50 MG/ML / Potassium Chloride 0.004 MEQ/ML / Sodium Chloride 0.103 MEQ/ML / Sodium Lactate 0.028 MEQ/ML Injectable Solution dextrose 5 % in lactated ringers infusion dextrose 5 % in lactated ringers infusion 07/07/2020 02:00:00 PM EDT 50 mL/h Intravenous active at 50 mL/hr, 50 mL/hr, Intravenous, Cont inuous, Starting Tue07/07/20 at 1400, Post-op
DC IV fluid when tolerating PO fluids or continue IV @ KVO with CUFF TURNER use
[facility] Medication administered onsite Acetaminophen 325 MG / Oxycodone Hydroch loride 5 MG Oral Tablet oxyCODONE- acetaminophen (PERCOCET) 5-325 MG 0.5 tablet oxyCODONE-acetaminophen (PERCOCET) 5-325 MG 0.5 tablet 07/07/2020 01:31:07 PM EDT 0.5 {tbl} Oral active 0.5 tablet, Oral, Every 4 hours PRN, moderate pain (4-6), Starting Tue07/07/20 at 1331, For 7 days, Post-op [facility] Medication administered onsite celecoxib 200 MG Oral Capsule celecoxib (CeleBREX) cap tessa 200 mg celecoxib (CeleBREX) capsule 200 mg 07/07/2020 01:31:07 PM EDT 200 mg Oral active 200 mg, Oral, Every 12 hours (relative), First dose on Tue07/07/20 at 1400, Post-op
START 8H AFTER PREOP DOSE
[facility] Medication administered onsite 2 ML Metoclopramide 5 MG/ML Prefilled Sy ringe metoclopramide (REGLAN) injection 10 mg metoclopramide (REGLAN) injection 10 mg 07/07/2020 01:31:07 PM E DT 10 mg Intravenous active 10 mg, I ntravenous, Every 6 hours PRN, nausea, vomiting, Starting Tue07/07/20 at 1331, Post-op
If no response from ondansetron in 15-30 minutes, give metoclopramide
[facility] Medication administered onsite ondansetron (ZOFRAN) injection 4 mg [id number] 07/07/2020 01:31:0 7 PM EDT 4 mg Intravenous active 4 mg, In travenous, Every 4 hours PRN, nausea, vomiting, Starting Tue07/07/20 at 1331, Post-op [facility] Medication administered onsite fentaNYL Citrate (PF) (SUBLIMAZE) injection 10 mcg [id number] 07/07/2020 01:31:07 PM EDT 10 ug Intravenous active 10 mcg, Intravenous, Every 1 hour prn, severe pain (7-10), Starting Tue07/07/20 at 1331, For 24 hours, Post-op [facility] Medication administered onsite gabapentin 600 MG Oral Tablet gabapentin (NEURONTIN) t ablet 300 mg gabapentin (NEURONTIN) tablet 300 mg 07/07/2020 01:31:07 PM EDT 300 mg Oral active 300 mg, Oral, Every 8 hours (relative), First dose on Tue07/07/20 at 1400, Post-op [facility] Medication administered onsite 1 ML Ketorolac Tromethamine 30 MG/ML Car tridge ketorolac (TORADOL) injection 30 mg ketorolac (TORADOL) injection 30 mg 07/07/2020 12:16:02 PM EDT 30 mg Intravenous aborted 30 mg, Intrav enous, Every 6 hours PRN, moderate pain (4-6), Starting Tue07/07/20 at 1216, For 24 hours, PACU (only) [facility] Medication administered onsite fentaNYL Citrate (PF) (SUBLIMAZE) injection 25 mcg [id number] 07/07/2020 11:50:59 AM EDT 25 ug Intravenous aborted 25 mcg, Intravenous, Every 5 min PRN, moderate pain (4 to 6), Starting Tue07/07/20 at 1150, For 1 day, PACU (only) [facility] Medication administered onsite Dexamethasone Sod Phosphate PF SOLN 10 mg [id number] 07/07/2020 09:00:00 AM EDT 10 mg Intravenous completed 10 mg, Intravenous, Once, Tue07/07/20 at 0900, For 1 dose, Pre-op [facility] Medication administered onsite celecoxib 100 MG Oral Capsule celecoxib (CeleBREX) cap tessa 400 mg celecoxib (CeleBREX) capsule 400 mg 07/07/2020 09:00:00 AM EDT 400 mg Oral completed 400 mg, Oral, Once, Tue07/07/20 at 0900, For 1 dose, Pre-op [facility] Medication administered onsite gabapentin 600 MG Oral Tablet gabapentin (NEURONTIN) t ablet 600 mg gabapentin (NEURONTIN) tablet 600 mg 07/07/2020 09:00:00 AM EDT 600 mg Oral completed 600 mg, Oral, Once, Tue07/07/20 at 0900, For 1 dose, Pre-op [facility] Medication administered onsite 50 ML Magnesium Sulfate 40 MG/ML Injecti on magnesium sulfate 2 g in sterile diluent magnesium sulfate 2 g in sterile diluent 07/07/2020 09:00:00 AM EDT 2 g Intravenous completed 2 g, Int ravenous, at 50 mL/hr, Once, Tue07/07/20 at 0900, For 1 dose, Pre-op [facility] Medication administered onsite Acetaminophen 500 MG Oral Tablet acetaminophen (TYLENO L) tablet 1,000 mg acetaminophen (TYLENOL) tablet 1,000 mg 07/07/2020 09:00:00 AM EDT 1000 mg Oral completed 1,000 mg, Oral , Once, Tue07/07/20 at 0900, For 1 dose, Pre-op [facility] Medication administered onsite normal saline flush 0.9 % injection 3 mL [id number] 07/07/2020 09:00:00 AM EDT 3 mL Intravenous aborted 3 mL , Intravenous, Every 8 hours (scheduled), First dose on Tue07/07/20 at 0900, Pre-op
Rapid push positive pressure flushing shall be performed with a 10 cc normal saline syringe to check the PATENCY of a PIV site prior to any infusion therapy initiation unless resistance is met.
[facility] Medication administered onsite Magnesium Chloride 0.59616 MEQ/ML / Pota ssium Chloride 0.0497 MEQ/ML / Sodium Acetate 0.0163 MEQ/ML / Sodium Chloride 0.0899 MEQ/ML / Sodium gluconate 5.02 MG/ML Injectable Solution [Normosol-R] electrolyte-R (NORMOSOL-R/PLASMALYTE-R) solution electrolyte-R (NORMOSOL-R/PLASMALYTE-R) solution 07/07 09:00:00 AM EDT Intravenous active at 3 0 mL/hr, Intravenous, Continuous, Starting Tue07/07/20 at 0900 [facility] Medication administered onsite heparin (porcine) injection 5,000 Units [id number] 07/08/19 09:00:00 AM EDT 5000 U Subcutaneous completed 5,000 Uni ts, Subcutaneous, Once, Tue07/07/20 at 0900, For 1 dose, Pre-op
If platelet count is less than 90,000 or hematocrit is less than 25, or if there is a 5 point decrease in hematocrit, do not give the dose and call physician/designee.
[facility] Medication administered onsite 10 mg 06/27/2020 12:00:00 AM EST tablet 30 TAKE 1 TABLET BY MOUTH 1 HOUR BEFORE BED TO HELP WITH SLEEPING MAXIMUM DAILY DOSE = 1 TAKE 1 TABLET BY MOUTH 1 HOUR BEFORE BED TO HELP WITH SLEEPING MAXIMUM DAILY DOSE = 1 SOLD: 06/27/2020 [facility] Dayvigo Dayvigo 06/26/2020 12:00:00 AM EST ORAL complet ed [facility] ([facility]) 10 mg 05/06/2020 12:00:00 AM EST tablet 30 TAKE 1 TABLET BY MOUTH EVERY NIGHT MAXIMUM DAILY DOSE = 1 TAKE 1 TABLET BY MOUTH EVERY NIGHT MAXIM UM DAILY DOSE = 1 SOLD: 06/05/2020 [facility] 10 mg 05/06/2020 12:00:00 AM EST tablet 30 TAKE 1 TABLET BY MOUTH EVERY NIGHT MAXIMUM DAILY DOSE = 1 TAKE 1 TABLET BY MOUTH EVERY NIGHT MAXIM UM DAILY DOSE = 1 SOLD: 05/06/2020 [facility] 10 mg 05/05/2020 12:00:00 AM EST capsule 90 TAKE ONE CAPSULE BY MOUTH EVERY DAY TAKE ONE CAPSULE BY MOUTH EVERY DAY SOLD: 05/06/2020 [facility] 10 mg 02/06/2020 12:00:00 AM EDT capsule 90 TAKE ONE CAPSULE BY MOUTH EVERY DAY TAKE ONE CAPSULE BY MOUTH EVERY DAY SOLD: 02/15/2020 [facility] 10 mg 01/03/2020 12:00:00 AM EDT tablet 30 TAKE ONE TABLET BY MOUTH EVERY NIGHT MAXIMUM DAILY DOSE = 1 TABLET TAKE ONE TABLET BY MOUTH EVERY NIGHT MAX IMUM DAILY DOSE = 1 TABLET SOLD: 02/02/2020 [facility] 10 mg 01/03/2020 12:00:00 AM EDT tablet 30 TAKE ONE TABLET BY MOUTH EVERY NIGHT MAXIMUM DAILY DOSE = 1 TABLET TAKE ONE TABLET BY MOUTH EVERY NIGHT MAX IMUM DAILY DOSE = 1 TABLET SOLD: 04/05/2020 [facility] 10 mg 01/03/2020 12:00:00 AM EDT tablet 30 TAKE ONE TABLET BY MOUTH EVERY NIGHT MAXIMUM DAILY DOSE = 1 TABLET TAKE ONE TABLET BY MOUTH EVERY NIGHT MAX IMUM DAILY DOSE = 1 TABLET SOLD: 03/06/2020 [facility] 10 mg 11/29/2019 12:00:00 AM EDT capsule 30 TAKE ONE CAPSULE BY MOUTH EVERY DAY TAKE ONE CAPSULE BY MOUTH EVERY DAY SOLD: 01/16/2020 [facility] Insurance Providers Payer name Policy type / Coverage type Policy ID Covered libertarian ID Covered libertarian's relationship to ureña Policy Ureña Plan Information [place] 302/307 [id number] SP [id number] [place] 306/806 [id number] SP [id number] EXCELLUS BCBS [id number] [id number] EXCELLUS [facility] [id number] [facility] VYS [id number] Excellus [facility] U/W Commercial [id number] Self VYS [id number] Excell [facility] U/W Commercial [id number] Self VYS [id number] Excell [facility] U/W Commercial [id number] Self VYS [id number] [place] PPO 302/307 [id number] SP [id number] [place] PPO 302/307 [id number] SP [id number] UMR [id number] [id number] UMR [id number] Spo [id number] INSURANCE COVID-19 COVID Angelique C OVID INSURANCE COVID-19 [id number] [id number] [place] [place] 306/806 [id number] SP [id number] [place] 306/806 [id number] SP [id number] [place]BS [place] PPO 302/307 [id number] SP [id number] Excell[employer] BCBS Health Maintenance Organization (HMO) [id number] Self [id number] PGBA [facility] [id number] HU2 [id number] UMR [facility] [id number] HU2 [id number] HEALTHNET/ AD P [id number] P [id number] UMR [facility] [id number] HU2 [id number] SELF PAY UNAVAILABLE SP UNAVAILA BLE UMR O [id number] S [id number] EXCELLUS BCBS B [id number] S VYS [id number] SELF PAY ONLY [id number] SP [id number] UMR O [id number] P [id number] UMR O UNAVAILABLE [id number] P UNAVAILA BLE [facility] ([facility]) [id number] Self [id number] [facility] ([facility]) [id number] Self [id number] [facility] ([facility]) [id number] Self [id number] [facility] ([facility]) [id number] Self [id number] [facility] ([facility]) [id number] Self [id number] Problems, Conditions, and Diagnoses Code Display Name Description Problem Type Effective Dates Data Source(s) N83.291 Other ovarian cyst, right side Other ovarian cyst, rig ht side Diagnosis 07/07/2020 07:30:00 AM EDT [facility] N92.0 Excessive and frequent menstruation with regular cycle Excessive and frequent menstruation with Diagnosis 07/07/2020 07:30:00 AM EDT [facility] 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 Diagnosis 07/07/2020 07:30:00 AM EDT [facility] 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 Diagnosis 07/07/2020 07:30:00 AM EDT [facility] U07.1 COVID-19 COVID-19 Diagnosis 07/02/2020 08:40:23 AM ED T [facility] 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 , 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, predominantly inattentive type Problem 07/28/2020 12:00:00 AM EDT [facility] ([facility]) N83.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 Complex cyst of right ovar y [id number] 07/05/2020 12:00:00 AM EDT [facility] D21.9 Fibroids Fibroids [id number] 07/05/2020 12:00:00 AM ED T [facility] N93.9 Abnormal uterine bleeding (AUB) Abnormal uterine bleed ing (AUB) [id number] 07/05/2020 12:00:00 AM EDT [facility] Surgeries/Procedures Procedure Description Date Indications Data Source(s) OFFICE OUTPATIENT VISIT 15 MINUTES 03/02/2021 12:00:00 AM EST [facility] ([facility]) OFFICE OUTPATIENT VISIT 25 MINUTES 01/28/2021 12:00:00 AM EDT [facility] ([facility]) OFFICE OUTPATIENT VISIT 25 MINUTES 01/06/2021 12:00:00 AM EDT [facility] ([facility]) OFFICE OUTPATIENT VISIT 15 MINUTES 12/29/2020 12:00:00 AM EDT [facility] ([facility] ) OFFICE OUTPATIENT VISIT 15 MINUTES 12/09/2020 12:00:00 AM EDT [facility] ([facility]) OFFICE OUTPATIENT VISIT 15 MINUTES 11/18/2020 12:00:00 AM EDT [facility] ([facility]) PERIODIC PREVENTIVE MED EST PATIENT 40-64YRS 12:00:00 AM EDT [facility] ([facility]) OFFICE OUTPATIENT VISIT 25 MINUTES 08/25/2020 12:00:00 AM EDT [facility] ([facility]) OFFICE OUTPATIENT VISIT 15 MINUTES 07/28/2020 12:00:00 AM EDT [facility] ([facility]) POCT I-STAT BETA HCG <td>POCT I-STAT BETA HCG</td ><td>Routine</td><td>07/07/2020 9:15 AM EDT</td><td></td><td> </td> 07/07/2020 01:15:00 PM EDT [facility] BLOOD COUNT COMPLETE AUTOMATED <td>CBC</td><td>Routine </td><td>07/02/2020 10:00 AM EDT</td><td> 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 Excessive and frequent menstruation with regular cycle</td><td> </td> 07/02/2020 02:00:00 PM EDT Excessive and frequent menstruation with regular cycleNeoplasm of uncertain behavior of left ovaryNeoplasm of uncertain behavior of right ovary [facility] Excessive and frequent menstruation with regular cycle 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 BLOOD TYPING ABO <td>TYPE AND SCREEN</td><td> Routine</td><td>07/02/2020 10:00 AM EDT</td><td> 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 Excessive and frequent menstruation with regular cycle</td><td> </td> 07/02/2020 02:00:00 PM EDT Excessive and frequent menstruation with regular cycleNeoplasm of uncertain behavior of left ovaryNeoplasm of uncertain behavior of right ovary [facility] Excessive and frequent menstruation with regular cycle 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 GONADOTROPIN CHORIONIC QUALITATIVE <td>HCG, SERUM, QUALITATIVE</td><td>Routine</td><td>07/02/2020 10:00 AM EDT</td><td> 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 Excessive and frequent menstruation with regular cycle</td><td> </td> 07/02/2020 02:00:00 PM EDT Excessive and frequent menstruation with regular cycleNeoplasm of uncertain behavior of left ovaryNeoplasm of uncertain behavior of right ovary [facility] Excessive and frequent menstruation with regular cycle 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) Name Value Range Interpretation Code Description Data Rachel rce(s) Supporting Document(s) Coronavirus 2019 Nasopharygeal Laboratory test result [facility] ([facility]) ASSAY INFORMATION: Real Time RT-PCR NOTE: The COVID-19 assay has been cleared by the U.S. Food and Drug Administration under the Emergency Use Authorization (EUA). [facility] and [email or web address] are designated as high complexity laboratories by the Clinical Laboratory Improvement Amendments of 1988(CLIA) and are qualified to perform this test. Not Detected ID Date Data Source [id number] 01/13/2021 11:06:00 AM EDT [facility] ([facility]) Name Value Range Interpretation Code Description Data Rachel rce(s) Supporting Document(s) Thyroxine (T4) free [Mass/volume] in Serum or Plasma 1.03 ng/dL 0.76-1.46 Normal (applies to non-numeric results) [facility] ([facility]) Thyrotropin [Units/volume] in Serum or Plasma 0.795 uIU/ML 0. 358-3.740 Normal (applies to non-numeric results) [facility] ([facility]) ID Date Data Source [id number] 01/13/2021 11:06:00 AM EDT [facility] ([facility]) Name Value Range Interpretation Code Description Data Rachel rce(s) Supporting Document(s) Iron (Fe) 72 ug/dL 50-170 Normal (applies to non-numeric resul ts) [facility] ([facility]) Total Iron Binding Capacity 342 ug/dL 250-450 Norm al (applies to non-numeric results) [facility] ([facility]) Percent Saturation 21.1 % 13.2-45.0 Normal (applies to non-numer ic results) [facility] ([facility]) ID Date Data Source [id number] 01/13/2021 11:06:00 AM EDT [facility] ([facility]) Name Value Range Interpretation Code Description Data Rachel rce(s) Supporting Document(s) Cobalamin (Vitamin B12) [Mass/volume] in Serum or Plasma 347 pg/ mL 247-911 Normal (applies to non-numeric results) [facility] ([facility]) VITAMIN B12 NORMAL RANGE NORMAL 247 - 911 PG/ML INDETERMINATE 211 - 246 PG/ML DEFICIENT LESS THAN 211 PG/ML Ferritin [Mass/volume] in Serum or Plasma 15 ng/mL 8-252 Normal (applies to non- numeric results) [facility] ([facility]) ID Date Data Source [id number] 01/13/2021 11:06:00 AM EDT [facility] ([facility]) Name Value Range Interpretation Code Description Data Rachel rce(s) Supporting Document(s) Lyme Disease IgG/IgM Antibodie Laboratory test result 0.00-0.90 Normal (applies to non-numeric results) [facility] ([facility]) <content>Negative <0.91</content >
<content>Equivocal 0.91 - 1.09</content>
<content>Positive >1.09</content>
<content></content> Lyme Disease IgM Ab Quantitati Laboratory test result 0.00-0.79 Normal (applies to non-numeric results) [facility] ([facility]) <content>Negative <0.80</content >
<content>Equivocal 0.80 - 1.19</content>
<content>Positive >1.19</content>
<content>.</content>
<content>IgM levels may peak at 3-6 weeks post infection, then</content>
<content>gradually decline.</content>
<content>Performed at: RN - [facility]</content>
<content>[address] [place] [id number]</content>
<content>[place]: Lissy Pacheco MD, Phone: [phone]</content>
<content></content> ID Date Data Source [id number] 01/13/2021 11:06:00 AM EDT [facility] ([facility]) Name Value Range Interpretation Code Description Data Rachel rce(s) Supporting Document(s) Calcidiol [Mass/volume] in Serum or Plasma 18.4 ng/mL 30.0- 100.0 Below low normal [facility] ([facility]) ID Date Data Source [id number] 01/13/2021 11:06:00 AM EDT [facility] ([facility]) Name Value Range Interpretation Code Description Data Rachel rce(s) Supporting Document(s) Triglycerides Level 61 mg/dL Normal (applies to non-nume bibi results) [facility] ([facility]) HDL Cholesterol 71 mg/dL Normal (applies to non-numeric results) [facility] ([facility]) Cholesterol Level 211 mg/dL Above high [facility] LDL Cholesterol 128 mg/dL Above high normal [facility] ([facility]) Non-HDL-C 140 mg/dL Normal (applies to non-numeric resul ts) [facility] ([facility]) Cholesterol Risk Ratio 2.971 Normal (applies to non-n umeric results) [facility] ([facility]) ID Date Data Source [id number] 01/13/2021 11:06:00 AM EDT [facility] ([facility]) Name Value Range Interpretation Code Description Data Rachel rce(s) Supporting Document(s) Blood Urea Nitrogen 13 mg/dL 7-18 Normal (applies to non-nume bibi results) [facility] ([facility]) Glucose, Fasting 91 mg/dL 70-100 Normal (applies to non-numeric results) [facility] ([facility]) Creatinine For GFR 0.77 mg/dL 0.55-1.30 Normal (applies to non -numeric results) [facility] ([facility]) Glomerular Filtration Rate Laboratory test result Normal (applies to non- numeric results) [facility] ([facility]) <content>Units are mL/min/1.73 m2</content>
<content></content>
<content>Chronic Kidney Disease Staging per NKF:</content>
<content></content>
<content>Stage I & II GFR >=60 Normal to Mildly Decreased</content>
<content>Stage III GFR 30- 59 Moderately Decreased</content>
<content>Stage IV GFR 15-29 Severely Decreased</content>
<content>Stage V GFR <15 Very Little GFR Left</content>
<content>ESRD GFR <15 on BRUSH FILLER HAND</content>
<content></content> Sodium Level 139 meq/L 136-145 Normal (applies to non-numeric res ults) [facility] ([facility]) Chloride Level 107 meq/L 98-107 Normal (applies to non-numeric r esults) [facility] ([facility]) Potassium Serum 4.1 meq/L 3.5-5.1 Normal (applies to non-numeric results) [facility] ([facility]) Anion Gap 6 meq/L 8-16 Below low normal [facility] ( [facility]) Carbon Dioxide Level 26 meq/L 21-32 Normal (applies to non-num shannan results) [facility] ([facility]) Ast/Sgot 12 U/L 7-37 Normal (applies to non-numeric resul ts) [facility] ([facility]) Calcium Level 9.2 mg/dL 8.5-10.1 Normal (applies to non-numeric re sults) [facility] ([facility]) Bilirubin,Total 0.4 mg/dL 0.2-1.0 Normal (applies to non-numeric results) [facility] ([facility]) Alkaline Phosphatase 48 U/L 45-117 Normal (applies to non-num shannan results) [facility] ([facility]) Alt/SGPT 14 U/L 12-78 Normal (applies to non-numeric resul ts) [facility] ([facility]) Total Protein 7.5 GM/DL 6.4-8.2 Normal (applies to non-numeric re sults) [facility] ([facility]) Albumin 3.8 GM/DL 3.2-5.2 Normal (applies to non-numeric resul ts) [facility] ([facility]) Albumin/Globulin Ratio 1.0 1.2-2.2 Below low normal [facility] ([facility]) ID Date Data Source [id number] 01/13/2021 11:06:00 AM EDT [facility] ([facility]) Name Value Range Interpretation Code Description Data Rachel rce(s) Supporting Document(s) White Blood Count 4.4 10 4.0-10.0 Normal (applies to non-numeri c results) [facility] ([facility]) Hemoglobin 12.6 g/dL 12.0-15.5 Normal (applies to non-numeric resul ts) [facility] ([facility]) Red Blood Count 4.30 10 4.00-5.40 Normal (applies to non-numeric results) [facility] ([facility]) Hematocrit 38.3 % 36.0-47.0 Normal (applies to non-numeric resul ts) [facility] ([facility]) Mean Corpuscular Volume 89.1 fl 80.0-96.0 Normal ( applies to non-numeric results) [facility] ([facility]) Mean Corpuscular Hemoglobin 29.3 pg 27.0-33.0 Norm al (applies to non-numeric results) [facility] ([facility]) Mean Corpuscular HGB Conc 32.9 g/dL 32.0-36.5 Normal (applies to non-numeric results) [facility] ([facility]) Platelet Count, Automated 257 10 150-450 Normal (applies to non-numeric results) [facility] ([facility]) Red Cell Distribution Width 12.6 % 11.5-14.5 Norm al (applies to non-numeric results) [facility] ([facility]) Neutrophils % 58.0 % 36.0-66.0 Normal (applies to non-numeric re sults) [facility] ([facility]) [place] % 7.9 % 2.0-8.0 Normal (applies to non-numeric resul ts) [facility] ([facility]) Lymph % 29.6 % 24.0-44.0 Normal (applies to non-numeric resul ts) [facility] ([facility]) Eos % 2.7 % 0.0-3.0 Normal (applies to non-numeric resul ts) [facility] ([facility]) Baso % 1.1 % 0.0-1.0 Above high normal [facility] ([facility]) Immature Granulocyte % 0.7 % 0-3.0 Normal (applies to non-n umeric results) [facility] ([facility]) Nucleated Red Blood Cell % 0.0 % 0-0 Normal (applies to n on-numeric results) [facility] ([facility]) Neutrophils # 2.6 10 1.5-8.5 Normal (applies to non-numeric re sults) [facility] ([facility]) Lymph # 1.3 10 1.5-5.0 Below low normal [facility] ( [facility]) Eos # 0.1 10 0.0-0.5 Normal (applies to non-numeric resul ts) [facility] ([facility]) Baso # 0.1 10 0.0-0.2 Normal (applies to non-numeric resul ts) [facility] ([facility]) [place] # 0.4 10 0.0-0.8 Normal (applies to non-numeric resul ts) [facility] ([facility]) ID Date Data Source [id number] 11/18/2020 04:37:00 PM EDT [facility] ([facility]) Name Value Range Interpretation Code Description Data Rachel rce(s) Supporting Document(s) Inhouse Leukocytes Laboratory test result [facility] ([facility]) Inhouse Nitrite Laboratory test result [facility] ([facility]) Inhouse Urobilinogen Laboratory test result [facility] ([facility]) Inhouse Protein Laboratory test result [facility] ([facility]) Inhouse Hemoglobin Laboratory test result [facility] ([facility]) Inhouse PH 6 [facility] ([facility]) Inhouse Ketones Laboratory test result [facility] ([facility]) Inhouse Specific [place] 0.010 [facility] ([facility]) Inhouse Bilirubin Laboratory test result [facility] ([facility]) Inhouse Glucose Laboratory test result [facility] ([facility]) ID Date Data Source [id number] 11/18/2020 04:00:00 PM EDT [facility] ([facility]) Name Value Range Interpretation Code Description Data Rachel rce(s) Supporting Document(s) Bacteria identified in Urine by Culture Laboratory test result Normal (applies to non-numeric results) [facility] ([facility]) <content>FULL REPORT IN LAB NOTES ([facility] nd [facility]).</content>
<content></content>
<content>ORGANISM 1: ESCHERICHIA COLI</content>
<content></content>
<content>COLONY COUNT > 100,000</content>
<content></content>
<content></content>
<content>O RGANISM 1: ESCHERICHIA COLI</content>
<content></content>
<content> ESCHERICHIA COLI: REACTION</content>
<content>TRIMETHOPRIM/SULFAMETHOXAZOLE IV 160mg TMP & 800mg SMXq6h <=20 S</content>
<content> TRIMETHOPRIM/SULFAMETHOXAZOLE PO Bactrim DS Bid <=20 S</content>
<content>AMPICILLIN IV 500mg q6h <=2 S</content>
<content>AMPICILLIN PO 500mg q6h fasting <=2 S</content>
<content>GENTAMICIN IV 80mg q8h <=1 S</content>
<content>NITROFURANTOIN PO 100mg BID <=16 S</content>
<content>CEFAZOLIN IV 1gm q8h <=4 S</content>
<content>LEVOFLOXACIN IV 500mg qd <=0.12 S</content>
<content>LEVOFLOXACIN PO 250mg qd <=0.12 S</content>
<content>LEVOFLOXACIN PO 500mg qd <=0.12 S</content>
<content>TOBRAMYCIN IV 80mg q8h <=1 S</content>
<content> CEFTRIAXONE IV 1gm q24h <=1 S</content>
<content>CEFTAZIDIME IV 1gm q8h <=1 S</content>
<content>AMPICILLIN/SULBACTAM IV 1.5g q6h <=2 S</content>
<content>PIPERACILLIN/TAZOBACTAM IV 2.25 gm q6h <=4 S</content>
<content>AZTREONAM IV 1gm q8h <=1 S</content>
<content>ERTAPENEM IV 1gm qd <=0.5 S</content>
<content> MEROPENEM IV 1 gm q8h <=0.25 S</content>
<content>MEROPENEM IV 500 mg q8h <=0.25 S</content>
<content>TIGECYCLINE IV 50mg q12h <=0.5 S</content>
<content>CEFEPIME IV 1 gm q12h <=1 S</content>
<content>CEFEPIME IV 2 gm q12h <=1 S</content>
<content>EXTD BRD SPCTRM BETA LACTAMASE IV NEGATIVE FOR ESBL</content>
<content></content> ID Date Data Source [id number] 07/07/2020 12:02:46 PM EDT [facility] INFORMATIONPatient MRN Name Date of Age Gend*PT [id number] Jaquan Sandeep Klein 1975 44 years F SDCXPT Location Admission Date/Time [facility] --- Jose Malagon MD([id number]) EPI ID CSN Admitting Provider [id number] Jose Malagon MD([id number])DILATION AND CURETTAGE WITH FROZEN SECTION, LAPAROSCOPIC BILATERAL OVARIANCYSTECTOMY WITH WASHINGS, HYSTERECTOMY (ovary sparing), LAPAROSCOPIC, WITHBILATERAL SALPINGECTOMY, AND CYSTOSCOPY Procedure NoteSandeep Kimball CSN: [id number]/22/2021urgeon(s):LIZETT Woodruffurgical Assist: Mallory Murphyaff:OR Claims Manager: AMADA Cedenourgical Assist: SLIM Murphy Relief Claims Manager: Irina Crawford RNOR Scrub Person: Thu Fiore ouleProcedure(s):DILATION AND CURETTAGE WITH FROZEN SECTIONLAPAROSCOPIC BILATERAL OVARIAN CYSTECTOMY WITH WASHINGSHYSTERECTOMY (ovary sparing), LAPAROSCOPIC, WITH BILATERAL SALPINGECTOMY, ANDCYSTOSCOPYAnesthesia: GeneralPre- op Diagnosis: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 We discussed procedures, indications, material risk, materialbenefits, alternatives (including none). All questions were answered andconsent was signed today.She was placed in table supine position induced under general endotrachealanesthesia. She was placed in the dorsolithotomy position with arms tucked ather side, palms up, head in neutral midline position. All positioningcomfortable to avoid undue pressure nerve, muscle, bone. Examination underanesthesia showed mobile uterus and cervix. She was prepped draped propersterile fashion. 0.5% Marcaine with epinephrine placed in the abdominal wallprior to making incisions. Transverse 5 mm incision was made the infraumbilicalfold and direct view, direct trocar insertion technique used to place a 5 mmport. Right left lateral 5 mm ports were placed in the pelvis, laterallyepigastric vessels, without difficulty or injury. Inspection upper abdomenshowed normal gallbladder, liver surface, diaphragms, stomach, great omentum.Large and small bowel including appendix, cecum, terminal ileum and rectosigmoidcolon normal. There was some rectosigmoid appearance with epiploic to the leftadnexa. There is no free fluid, no peritoneal lesions, no largeretroperitonealnodes. Ureters not dilated peristalsing normally. No evidenceinguinal hernia. Both ovaries had a bluish- grayish discoloration and adherentto the posterior broad ligament posterior uterus and cul-de-sac and theseadhesions were lysed. There is a 4 x 10 mm area of powder burn cystic lesionson the low anterior right uterine serosa and this was left attached to thespecimen. This was consistent with endometriosis. Cytology washings taken shewas placed in sufficient Trendelenburg to move the bowels out of the pelvis andthe mesosalpinges were controlled as close to the tubes as possible to preserveas much ovarian blood supply as possible adhesions were lysed. And the superiorpedicles were controlled and transected with harmonic Andrea and bladder flap takendown anteriorly uterine vessels controlled and transected with harmonic Andrea atthe level internal loss and cardinal ligament taken down uterosacral archpreserve carried down to and through the vaginal Koza.This was along the V care cup. Next to both ovaries were open and left ovarycontained densely adherent chocolate cyst was not able to be entirelyfrom the ovarian cortex so some the cortex was removed along with the cyst onthe right the cortex was opened and the cyst was removed intact it also had apurplish bluish cast consistent with possible endometriosis. This was removedper vagina intact and the ovary was preserved. In the uterus was removed aswell and saline soaked lap sponge placed in the vagina to restorepneumoperitoneum close chain tension in the abdomen. The vagina was closed witha running 2-0 V-Loc 180 suture start left vaginal angle, full- thickness vaginalwall clear mucosa, run from left to right and right back to left. This providedcomplete approximation, complete hemostasis and improved support to cuffcompared the preoperative state. Pelvis irrigated aspirated inspectedlow-pressure hemostasis was complete and CO2 evacuated instruments removed and5-0 Monocryl used to close infraumbilical skin and antibiotic ointment Band-Aidapplied Steri-Strips applied to the lower incisions vagina was irrigated andchecked for sponges hemostatic cuff intact good support improved over thepreoperative state. Our cystoscopy performed the 30 degree lens showedunremarkable epithelium with urethra and bladder good effluxing clear urine fromeach ureteral orifice. No perforation, no penetration, no ecchymosis, nospace-occupying lesion. Hands placed back in her chest she was placed back insupine position awakened anesthesia transported to the stretcher and to recoveryin stable condition. Finds a procedure communicated with spouse by phone fromthe OR at the end of surgery.Drains: NoneGrafts/Implants:NoneSpecimens:ID Type Source Tests Collected by Time1 : pelvic washings Pelvic washing (Cytology) Pelvic Washings SPECIMEN TOCYTOLOGY Jose Malagon MD 07/07/2020 1010A : enometrial and endocervical currettings Tissue Tissue SURGICAL PATHOLOGYEXAM Jose Malagon MD 07/07/2020 1010B : uterus, bilateral tubes and cervix Tissue Tissue SURGICAL PATHOLOGY EXAMJose Malagon MD 07/07/2020 1108C : partial left ovary and cyst Tissue Tissue SURGICAL PATHOLOGY EXAM MD Eugene 07/07/2020 1108D : right ovary cyst Tissue Tissue SURGICAL PATHOLOGY EXAM Jose Malagon MD07/07/2020 1109Estimated Blood Loss: less than 100 mLBlood Administered: See Anesthesia RecordComplications: NoneAll significant tasks completed under the direction of the primary surgeon withthe exception of:SOCORRO Sharmaate: 07/07/2020 Time: 11:56 AM Name Value Range Interpretation Code Description Data Rachel rce(s) Supporting Document(s) ID Date Data Source [id number] 07/07/2020 09:53:24 AM EDT [facility] NT INFORMATIONPatient MRN Name Date of Age Gend*PT [id number] Sandeep Kimball 1975 44 years F SDCXPT Location Admission Date/Time Visit ID Attending Provider --- --- --- --- EPI ID CSN Admitting Pr ovider [id number] ---AirwayPatient location during procedure: ORUrgency: electiveDifficult airway: noAdvanced airway equipment used: noStaffingPerformed by: Antonia Dean CRNAAnesthesiologist: Boone Hoyos MDIndications and Patient ConditionIndications for airway management: anesthesia and airway protectionPreoxygenated: yesPatient position: sniffingIn-line stabilization: yesMask ventilation: 1 - vent by maskFinal Airway/ApproachesFinal airway type: ETTNumber of attempts at final approach: 1Number of other approaches attempted: 0Final Airway DetailsFinal ETT airway: ETT - singleCuffed: yesTechnique used for successful ETT placement: direct laryngoscopy and regularstyletCricoid pressure: noRSI: noInsertion site: oralBlade type/size: MAC 3.5ETT size: 7.5 mmMeasured from: lipsETT to lips: 22 cmPlacement verified by: chest auscultation, + ETCO2 and palpation of cuffAuscultation: CTA and equal breath sounds bilateralGrade view: grade IIa - partial view of glottis Name Value Range Interpretation Code Description Data Rachel rce(s) Supporting Document(s) ID Date Data Source [id number] 07/07/2020 09:30:55 AM EDT [facility] Name Value Range Interpretation Code Description Data Rachel rce(s) Supporting Document(s) POC [facility] <5.0 IU/L [facility] INTERPRETATION:<5.0 NEGATIVE5.0- 25.0 INDETERMINATE>25.0 POSITIVELEVELS BETWEEN 5 AND 25 IU/L MAY INDICATEEARLY AND SHOULD BE REPEATED MARTIN BLOOD SAMPLE AFTER 48 HOURS.PERFORMED BY [facility] CLINICAL STAFF ID Date Data Source [id number] 07/14/2020 11:54:55 AM EDT [facility] [address] [address]Udo# Surgical Pathology ReportPatient Name: SANDEEP KIMBALLEmperatriz: 1975Accession #:[id number](s) ReceivedA: Endometrial and endocervical curettingsB: Uterus, bilateral tubes, cervixC: Partial left ovary and cystD: Right ovary cystClinical Diagnosis and HistoryNeoplasm of uncertain behavior of right ovary. Endometriosis right loweranterior uterus.DIAGNOSISA. ENDOMETRIAL AND ENDOCERVICAL CURETTINGS: BENIGN ENDOMETRIUM AND CERVIXB. UTERUS, RIGHT AND LEFT FALLOPIAN TUBES; TOTAL HYSTERECTOMY AND BILATERAL SALPINGECTOMY: CERVIX WITH SQUAMOUS METAPLASIA AND NABOTHIAN CYSTS PROLIFERATIVE ENDOMETRIUM SUPERFICIAL ADENOMYOSIS LEIOMYOMATA UTERINE SEROSAL ADHESIONS AND FOCAL ENDOMETRIOSIS BENIGN FALLOPIAN TUBES WITH CONGESTION, FOCAL ENDOMETRIOSIS, AND RIGHT PARATUBAL CYST NO EVIDENCE OF MALIGNANCYC. PORTION OF LEFT OVARY AND CYST, RESECTION: BENIGN FIBROUS-WALLED CYST WITH FOCAL OLD HEMORRHAGE AND CALCIFICATIONS PANCYTOKERATIN IMMUNOHISTOCHEMICAL STAINS REVEALS NOOCCULT MALIGNANCY D. RIGHT OVARIAN CYST, RESECTION: ENDOMETRIOMAS Intraoperative Consult DiagnosisTISSUE: Endometrial and endocervical curettingsA FS1: Benign endometrium and cervix.PMS 07/07/20/10:10 Mela Dixon M.D. Gross DescriptionPart A. Received fresh for intraoperative diagnosis labeled "endometrialand endocervical curettings" is a 2.5 x 1.8 x 0.1 cm aggregate of ta n-pinkto red-purple irregular fragments of tissue and blood clot. The specimenis entirely submitted for frozen section and as AFS1. Part B. Received in formalin labeled "uterus, bilateral tubes and cervix"is a 167 gram, 10.1 x 6.5 x 5.8 cm uterus and cervix with attachedbilateral fallopian tubes. No ovaries are received. The cervix measures3.2 cm in length x 3.2 cm in diameter and displays a 1.1 cm patent os. The ectocervix is olsen-pink, smooth and glistening. The serosa istan-pink, smooth and glistening with a 4.5 x 2.0 cm area of olsen-pinkadhesions along the anterior aspect. There are also focal areas ofhemorrhage located along the anterior right side of the specimen. Thespecimen is bivalved to show a 2.9 cm olsen-pink finely grooved endocervicalcanal with olsen- pink smooth cut surfaces displaying multiple cystsmeasuring up to 0.9 cm and containing olsen mucus. The triangular uterinecavity measures 4.1 cm in length x 2.9 cm in width and is lined by atan-pink to red-purple focally hemorrhagic slightly shaggy 0.1 cm thickendometrium. Sectioning shows olsen-pink trabecular myometrium measuring upto 3.1 cm in thickness. There are multiple seaman-white to olsen whorled wellcircumscribed intramural nodules ranging from 0.9 to 3.2 cm. The attachedright fimbriated fallopian tube measures 7.5 cm in length x 0.7 cm indiameter and displays a red-purple glistening external surface. There lion 0.7 cm olsen thin walled paratubal cyst. Sectioning shows a varying lumenranging from pinpoint to stellate. The left fimbriated fallopian tubemeasures 9.2 cm in length x 0.7 cm in diameter and displays a olsen-pink tored-purple glistening external surface with areas of adherent dark redclotted blood. Sectioning shows a varying lumen ranging from pinpoint tostellate. [employer] sections are submitted as labeled:B1-B2. Anterior serosal adhesions B3. Anterior cervix B4. Posterior cervix B5. Anterior endomyometrial full thickness section B6. Posterior endomyometrial section B7. Smaller intramural nodules B8. Largest intramural nodule B9. Right fallopian tube B10. Left fallopian tube Part C. Received in formalin labeled "partial left ovary and cyst" is a4.5 x 2.8 x 1.1 cm aggregate of olsen-pink irregular rubbery fragments oftissue. Serially sectioned and entirely submitted as C1-C3. Part D. Received in formalin labeled "right ovary cyst" is a 4.5 x 3.5 x3.0 cm olsen-pink to red-brown lobulated focally shaggy unoriented fragmentof tissue. The specimen is sectioned to show three thin walled smoothlined cystic structures ranging in size from 1.2 cm to 3.5 cm. Nopapillary excrescences are identified. Each cyst contains an abundantamount of dark red clotted blood. Wel[employer]ne[employer] sections are submittedas D1-D3. jgllmr/pms Reported: 07/14/2020Electronically Signed Out By Mela Dixon M.D. [facility] [place] [address] [id number] component performed at [facility] ROVOP [facility], Histopathology, [address] [place] [address], [phone].Reported at [facility], [address] [place] [address], [phone]. This report may includeimmunohistochemical or in-situ hybridization results. Testing wasdeveloped and the performance characteristics determined by [facility] [email or web address] [facility] as required by CLIA '88. The FDA hasdetermined that approval for specific use is not necessary for clinicaluse. The quality of Hematoxylin and Eosin stains and as applicable, forall immunohistochemical and/or special stains, including positive andnegative controls, were reviewed and considered appropriate.ICD codes D39.11CPT codesA: 48142Z, 96663FK: 05669FE: 85442X, 43418fS: 50846F Name Value Range Interpretation Code Description Data Rachel rce(s) Supporting Document(s) ID Date Data Source [id number] 07/10/2020 10:34:33 AM EDT [facility]AT[facility] [address] [address]Ybo# MISCELLANEOUS CYTOLOGY REPORTAccession Number: [id number] of Specimen(s): A: Pelvic (Perineal) WashingClinical Diagnosis and History: Gross DescriptionPelvic (Perineal) Washin cc clear light red fluid. Final DiagnosisSpecimen AdequacySatisfactoryFinal DiagnosisNEGATIVE FOR MALIGNANCY Aspirate/cell block show histiocytes, mesothelial cells.Processed and screened at [facility],Cytology, [address] [place] [address], [facility].As applicable, positive and negative controls for all immunohistochemicaland/or special stains were reviewed and considered appropriate. Reported: 07/10/2020Electronically Signed Out By Domenica Covarrubias MDTonsil Hospital PatholoCytotechnologist: Darcy Malik CT(ASCP)[facility]jjfICD code: R19.07CPT code: A: 38199D, 53007C Name Value Range Interpretation Code Description Data [facility] rce(s) Supporting Document(s) ID Date Data Source [id number] 07/02/2020 10:18:58 AM EDT [facility]PAT[facility] NT INFORMATIONPatient MRN Name Date of Age Gend*PT [id number] Sandeep Kimball 1975 44 years F OPPT Location Admission Date/Time Visit ID Attending Provider --- --- --- Jose Malagon MD([id number]) EPI ID CSN Admitting Provider [id number] ---OUTPATIENT / OBSERVATIONAL SURGICAL OR INVASIVE PROCEDUREName: Sandeep Kimball : 1975 Sex: female Care Provider: LEONA NINO DOAttending Physician: Dr. Татьяна Malagon.HISTORY OF PRESENT ILLNESS: 44 years old white female with a history of dermoidcysts of the ovaries. She has had extremely heavy periods with clotting,work-up including ultrasound and MRI were done with findings of dermoid ovariancysts. She met with Dr. 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 Authorizing ProviderBiotin 10 MG CAPS Take 10 mg by mouth daily Historical Provider, Sameermborexant (DAYVIGO) 10 MG TABS Take 10 mg by mouth nightly HistoricalProvider, LIZETTocial HistoryTobacco Use Smoking status: Never Smoker Smokeless tobacco: Never UsedSubstance Use Topics Alcohol use: Yes Alcohol/week: 2.0 standard drinks Types: 2 Glasses of wine per week Comment: one day week Drug use: NeverFamily HistoryProblem Relation Age of Onset Heart disease Mother Heart disease Father Malig Hyperthermia Neg HxREVIEW OF SYSTEMS:Respiratory: Denies any shortness of breath, cough, yellow sputum production orwheezing.Cardiovascular: Denies any chest pain, pressure or tightness. Denies anyparoxysmal nocturnal dyspnea or orthopnea.GI: Denies nausea, vomiting, diarrhea, constipation or melen a.Neurologic: Denies any numbness, tingling, tremors or syncope.Vascular: Denies any edema. Denies claudication.PHYSICAL EXAM:GENERAL: She is a 44 years old, pleasant white female, in no acute distress attime of examination. Vitals on arrival to the office are BP 152/90 (BP Location:Left upper arm, Patient Position: Sitting) | Pulse 58 | Ht 1.651 m (5' 5") |Wt 81.4 kg (179 lb 6.4 oz) | SpO2 98% | BMI 29.85 kg/m Body mass index is29.85 kg/m ..Skin is pink, warm, and dry.NECK: She has a grade 1 airway. Neck is supple, midline, without cervicaladenopathy. No thyromegaly. No carotid bruits.MENTAL / NEUROLOGICAL STATUS: [id number]: Clear to auscultation. No wheezes, rhonchi or crackles.HEART: Rate rhythm regular. S1, S2. No murmur, rub or gallop.ABDOMEN: Bowel sounds positive times four. Soft, non tender. No reboundtenderness. No hepatosplenomegaly. Negative CVAT.EXTREMITIES: Pulses are symmetrical. No edema.OPERATIVE SITE: Clear and intact.Anesthesia complications: DeniesCSHA Fra ilty Scale :: 2/10 Well (without active disease, but less fit thanpeople in category I. 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 A reasonable attempt at proofreading has beenmade to minimize errors. Please call with any questions or corrections.* Name Value Range Interpretation Code Description Data Rachel rce(s) Supporting Document(s) ID Date Data Source [id number] 07/02/2020 07:43:00 PM EDT [facility] SPEC EXP DATE 1PATI ENT ABO/Rh B POSITIVEANTIBODY SCREEN NEGATIVETESTING SITE PERFORMED AT [address] [place] [id number] Name Value Range Interpretation Code Description Data Rachel rce(s) Supporting Document(s) TYPE AND SCREEN [facility] ID Date Data Source [id number] 07/02/2020 06:24:53 PM EDT [facility] Name Value Range Interpretation Code Description Data Rachel rce(s) Supporting Document(s) HCG, QUAL. SERUM (NEG) [facility] ID Date Data Source [id number] 07/02/2020 05:21:02 PM EDT [facility] Name Value Range Interpretation Code Description Data Rachel rce(s) Supporting Document(s) WBC 4.8 10*3/uL (4.1-11.0) [facility] [place] RBC 4.05 10*6/uL (4.00-5.40) [facility] HGB 12.0 g/dL (12.0-16.0) [facility] HCT 36.5 % (36.0-47.0) [facility] MCV 90.0 fL (80.0-95.0) [facility] MCH 29.6 pg (27.0-32.0) [facility] MCHC 32.9 g/dL (32.0-36.0) [facility] RDW 14.1 % (10.5-14.5) [facility] PLT 260 10*3/uL (150-450) [facility] MPV 9.6 fL (7.1-10.7) [facility] ID Date Data Source [id number] 07/02/2020 08:50:00 AM EDT [facility] Name Value Range Interpretation Code Description Data Rachel rce(s) Supporting Document(s) SARS coronavirus 2 RNA Not Detected [facility] This lab was ordered by [facility] and reported by [facility]. ID Date Data Source [id number] 07/03/2020 04:09:27 PM EDT [facility] Name Value Range Interpretation Code Description Data Rachel rce(s) Supporting Document(s) SARS-COV-2 AMADA [facility] Not DetectedReference range: Not Detecte d This nucleic acid amplification test was developed and its performance characteristics determined by [facility]. Nucleic acid amplification tests include RT-PCR and TMA. This test has not been FDA cleared or approved. This test has been authorized by FDA under an Emergency Use Authorization (EUA). This test is only authorized for the duration of time the declaration that circumstances exist justifying the authorization of the emergency use of in vitro diagnostic tests for detection of SARS-CoV-2 virus and/or diagnosis of COVID-19 infection under section 564(b)(1) of the Act, 21 U.S.C. 360bbb-3(b) (1), unless the authorization is terminated or revoked sooner. When diagnostic testing is negative, the possibility of a false negative result should be considered in the context of a patient's recent exposures and the presence of clinical signs and symptoms consistent with COVID- 19. An individual without symptoms of COVID- 19 and who is not shedding S ARS-CoV-2 virus would expect to have a negative (not detected) result in this assay. Performed At: [address] [place], [place] [id number] Corin Pederson PhD Ph:[phone] ID Date Data Source [id number] 04/28/2020 12:00:00 AM EST [facility] Leona Nino DO Patient Name: SANDEEP KIMBALL [id number] Date of : 1975 1 Date of Exam: 04/28/2020LUCILA Balbuena [id number]#: Fax: [phone] EXAM: MRI PELVIS WITHOUT&WITH CONTRASTCLINICAL INFORMATION: Attention right hemipelvic mass seen on priorultrasound examination 03/06/2020 which showed bilateral ovarian cysticchanges and an approximately 5 cm sized complex cystic mass within theright ovary along with uterine myomatous changes.Pre and post contrast 3T MRI of the pelvis was performed utilizing varioussequences. Gadolinium utilized: 16 cc of ProHance.There is a complex right hemipelvic mass which has T1 shortening and C0wofpzzvupm along with Gadolinium enhancement. This is within the rightovary and measures approximately 4.9 x 3.3 x 4.4 cm. In the left ovary,there is a smoothly marginated round non-enhancing 2.4 cm sized structureof subtle T1 shortening and low intermediate T2 signal.There are scattered uterine myomatous changes of vari ous sizes. Thelargest is seen in the posterior uterine body and measures approximately 3cm. There are multiple nabothian cysts. There is no free fluid. Theuterine and cervical junction lines appear to be within normal limits. Thecortical and marrow signal seen throughout the exam is within normallimits.IMPRESSION;1. Abnormal right ovarian findings as described above suspicious for adermoid cyst.2. Complex appearing left ovarian cyst of uncertain etiology. Additionaldermoid cysts cannot be ruled out.3. There are small bilateral ovarian follicles.4. Uterine myomatous changes seen in conjunct ion with uterine enlargement.5. Other findings as described above.Accredited by the [employer] in MR.ANCELMO Hale/Baldev you for referring SANDEEP KIMBALL to our office. Electronically Signed - OLYA PARKS DO 04/30/20 16:31 Name Value Range Interpretation Code Description Data Rachel rce(s) Supporting Document(s) ID Date Data Source [id number] 04/19/2020 09:00:00 AM EST [facility] Name Value Range Interpretation Code Description Data Rachel rce(s) Supporting Document(s) [facility] lab was ordered by [facility] and reported by [facility]. ID Date Data Source [id number] 03/06/2020 12:00:00 AM EST [facility] Leona Nino DO Patient Name: SANDEEP KIMBALL [id number] Date of : 1975e 1 Date of Exam: 03/06/2020LUCILA Balbuena [id number]#: Fax: [phone] EXAM: US PELVIC COMPLETECLINICAL INFORMATION: Followup bilateral ovarian complex cysticstructures and uterine myomatous changes.Comparison 12/13/2019.Transvesical and transvaginal imaging.The uterus is unchanged in size, shape, and echo pattern. Note is againmade of myomatous changes, status quo. Note is again made of nabothiancysts.There is no significant change in the appearance of the endometrialechocomplex. It measures 5 mm in its greatest thickness today but issomewhat distorted by the myometrial change.The right ovary measures 5 x 3.1 x 3.6 cm. Within the right ovary, thereis a complex septated appearing cystic structure which occupies most of theright ovary. It has increased slightly in size from the prior exam. Theright ovarian RI is .6.The left ovary measures 4.2 x 2.6 x 3.4 cm. In the left ovary, there is a2.7 x 2.3 x 2.8 cm sized anechoic structure which exhibits posterior wallenhancement and increased through transmission and is without septations orpapillary projections. It is essentially unchanged compared to the priorexam.The urinary bladder measures 3 x 3 x 9 cm.IMPRESSION:There is essentially no significant change when compared to the prior examwith uterine myomatous changes and bila teral ovarian cystic changes asdescribed above. Whether or not these ovarian cysts represent unresolvedcysts from the prior exam or new cysts which have developed since December 12of this year cannot be stated with certainty. If clinically relevant,consider further evaluation with pre and post Gadolinium enhanced pelvicMRI.Accredited by the [employer] in GynecologicalUltrasound.ANCELMO Hale/Baldev you for referring SANDEEP KIMBALL to our office. Electronically Signed - OLYA PARKS DO 03/07/20 16:47 Name Value Range Interpretation Code Description Data Rachel rce(s) Supporting Document(s) ID Date Data Source [id number] 03/06/2020 12:00:00 AM EST [facility] Leona Nino DO Patient Name: SANDEEP KIMBALL [id number] Date of : 1975 1 [facility]: [facility] [id number] Fax: [phone] EXAM: US PELVIC COMPLETECLINICAL INFORMATION: Followup bilateral ovarian complex cysticstructures and uterine myomatous changes.Comparison 12/13/2019.Transvesical and transvaginal imaging.The uterus is unchanged in size, shape, and echo pattern. Note is againmade of myomatous changes, status quo. Note is again made of nabothiancysts.There is no significant change in the appearance of the endometrialechocomplex. It measures 5 mm in its greatest thickness today but issomewhat distorted by the myometrial change.The right ovary measures 5 x 3.1 x 3.6 cm. Within the right ovary, thereis a complex septated appearing cystic structure which occupies most of theright ovary. It has increased slightly in size from the prior exam. Theright ovarian RI is .6.The left ovary measures 4.2 x 2.6 x 3.4 cm. In the left ovary, there is a2.7 x 2.3 x 2.8 cm sized anechoic structure which exhibits posterior wallenhancement and increased through transmission and is without septations orpapillary projections. It is essentially unchanged compared to the priorexam.The urinary bladder measures 3 x 3 x 9 cm.IMPRESSION:There is essentially no significant change when compared to the prior examwith uterine myomatous changes and bila teral ovarian cystic changes asdescribed above. Whether or not these ovarian cysts represent unresolvedcysts from the prior exam or new cysts which have developed since December 12of this year cannot be stated with certainty. If clinically relevant,consider further evaluation with pre and post Gadolinium enhanced pelvicMRI.Accredited by the [employer] in GynecologicalUltrasound.ANCELMO Hale/Baldev you for referring SANDEEP KIMBALL to our office. Electronically Signed - OLYA PARKS DO 03/07/20 16:47 Name Value Range Interpretation Code Description Data Rachel rce(s) Supporting Document(s) Procedure Social History Code Duration Value Status Description Data Source(s ) Smoking 01/06/2021 12:00:00 AM EDT Patient has never smoked co mpleted Patient has never smoked [facility] ([facility]) Alcohol intake 07/07/2020 12:00:00 AM EDT Yes completed [facility] Smoking 07/07/2020 12:00:00 AM EDT Never smoker completed Never s [facility] Alcohol intake 07/02/2020 12:00:00 AM EDT Yes completed [facility] Smoking 07/02/2020 12:00:00 AM EDT Never smoker completed Never s [facility] Vital Signs ID Date Data Source UNK Name Value Range Interpretation Code Description Data Source(s) Systolic blood pressure 136 mm[Hg] 136 [facility]Hg] [facility] Body temperature 98.6 [degF] 98.6 [degF] [facility] ([facility]) Oxygen saturation in Arterial blood by Pulse oximetry 100 % 100 % [facility] ([facility]) [place] body weight 125 [lb_av] 125 [lb_av] [facility] T ([facility]) Diastolic blood pressure 72 mm[Hg] 72 mm[Hg] [facility] ([facility]) Body height 65 [in_i] 65 [in_i] [facility] 5'5" Body weight 182.50 [lb_av] 182.50 [lb_av] [facility] ([facility]) Body mass index (BMI) [Ratio] 30.4 kg/m2 30.4 k g/m2 [facility] ([facility]) Heart rate 72 /min 72 /min [facility] ([facility]) Respiratory rate 18 /min 18 /min [facility] ( [facility]) Systolic blood pressure 130 mm[Hg] 130 mm[Hg] M [facility] ([facility]) Diastolic blood pressure 78 mm[Hg] 78 mm[Hg] [facility] ([facility]) Body height 65 [in_i] 65 [in_i] [facility] ([facility]) 5'5" Body weight 178.00 [lb_av] 178.00 [lb_av] [facility] ([facility]) Body mass index (BMI) [Ratio] 29.6 kg/m2 29.6 k g/m2 [facility] ([facility]) Heart rate 75 /min 75 /min [facility] ([facility]) [place] body weight 125 [lb_av] 125 [lb_av] [facility] ([facility]) Respiratory rate 18 /min 18 /min [facility] ( [facility]) Body temperature 98.3 [degF] 98.3 [degF] [facility] ([facility]) Oxygen saturation in Arterial blood by Pulse oximetry 99 % 99 % [facility] ([facility]) Respiratory rate 14 /min 14 /min [facility] ( [facility]) Oxygen saturation in Arterial blood by Pulse oximetry 99 % 99 % [facility] ([facility]) [place] body weight 125 [lb_av] 125 [lb_av] [facility] ([facility]) Body temperature 98.5 [degF] 98.5 [degF] [facility] ([facility]) Systolic blood pressure 140 mm[Hg] 140 mm[facility]Hg] [facility] Diastolic blood pressure 90 mm[Hg] 90 mm[Hg] [facility] ([facility]) Body height 65 [in_i] 65 [in_i] [facility] ([facility]) 5'5" Body weight 181.38 [lb_av] 181.38 [lb_av] [facility] ([facility]) Body mass index (BMI) [Ratio] 30.2 kg/m2 30.2 k g/m2 [facility] ([facility]) Heart rate 78 /min 78 /min [facility] ([facility]) Systolic blood pressure 130 mm[Hg] 130 mm[Hg] [facility] ([facility], ) Diastolic blood pressure 80 mm[Hg] 80 mm[Hg] [facility] ([facility]) Body temperature 98.4 [degF] 98.4 [degF] [facility] ([facility]) Body height 65 [in_i] 65 [in_i] [facility] ([facility]) 5'5" Body mass index (BMI) [Ratio] 30.1 kg/m2 30.1 k g/m2 [facility] ([facility]) [place] body weight 125 [lb_av] 125 [lb_av] [facility] ([facility]) Body weight 82.102 kg 82.102 kg [facility] ([facility]) Body surface area Derived from formula 1.90 m2 1.90 m2 [facility] ([facility]) Body weight 181.00 [lb_av] 181.00 [lb_av] [facility] ([facility]) Systolic blood pressure 164 mm[Hg] 164 mm[facility]Hg] [facility] Diastolic blood pressure 100 mm[Hg] 100 mm[Hg] [facility] Body height 65 [in_i] 65 [in_i] [facility] ([facility]) 5'5" Body weight 177.25 [lb_av] 177.25 [lb_av] [facility] ([facility]) Body mass index (BMI) [Ratio] 29.5 kg/m2 29.5 k g/m2 [facility] ([facility]) Heart rate 90 /min 90 /min [facility] ([facility]) Respiratory rate 14 /min 14 /min [facility] ( [facility]) Body temperature 97.0 [degF] 97.0 [degF] [facility] ([facility]) Oxygen saturation in Arterial blood by Pulse oximetry 99 % 99 % [facility] ([facility]) [place] body weight 125 [lb_av] 125 [lb_av] [facility] ([facility]) Systolic blood pressure 180 mm[Hg] 180 mm[Hg] M [facility] ([facility]) Body temperature 98.3 [degF] 98.3 [degF] [facility] ([facility]) Respiratory rate 14 /min 14 /min [facility] ( [facility]) Oxygen saturation in Arterial blood by Pulse oximetry 99 % 99 % [facility] ([facility]) [place] body weight 125 [lb_av] 125 [lb_av] [facility] ([facility]) Diastolic blood pressure 110 mm[Hg] 110 mm[Hg] [facility] ([facility]) Body height 65 [in_i] 65 [in_i] [facility] ([facility]) 5'5" Body weight 181.00 [lb_av] 181.00 [lb_av] [facility] ([facility]) Body mass index (BMI) [Ratio] 30.1 kg/m2 30.1 k g/m2 [facility] ([facility]) Heart rate 68 /min 68 /min [facility] ([facility]) Systolic blood pressure 142 mm[Hg] 142 mm[Hg] M [facility] ([facility]) Diastolic blood pressure 78 mm[Hg] 78 mm[Hg] [facility] ([facility]) Body height 65 [in_i] 65 [in_i] [facility] ([facility]) 5'5" Body weight 176.50 [lb_av] 176.50 [lb_av] [facility] ([facility]) Body mass index (BMI) [Ratio] 29.4 kg/m2 29.4 k g/m2 [facility] ([facility]) Heart rate 73 /min 73 /min [facility] ([facility]) Respiratory rate 18 /min 18 /min [facility] ( [facility]) Body temperature 97.7 [degF] 97.7 [degF] [facility] ([facility]) Oxygen saturation in Arterial blood by Pulse oximetry 97 % 97 % [facility] ([facility]) [place] body weight 125 [lb_av] 125 [lb_av] [facility] ([facility]) Body temperature 98.5 [degF] 98.5 [degF] [facility] ([facility]) [place] body weight 125 [lb_av] 125 [lb_av] [facility] ([facility]) Systolic blood pressure 156 mm[Hg] 156 mm[Hg] M [facility] ([facility]) Diastolic blood pressure 90 mm[Hg] 90 mm[Hg] [facility] ([facility]) Body height 65 [in_i] 65 [in_i] [facility] ([facility]) 5'5" Body weight 180.00 [lb_av] 180.00 [lb_av] [facility] ([facility]) Body mass index (BMI) [Ratio] 30.0 kg/m2 30.0 k g/m2 [facility] ([facility]) Heart rate 67 /min 67 /min [facility] ([facility]) Respiratory rate 14 /min 14 /min [facility] ( [facility]) Oxygen saturation in Arterial blood by Pulse oximetry 99 % 99 % [facility] ([facility]) Systolic blood pressure 148 mm[Hg] 148 mm[Hg] Health system Diastolic blood pressure 73 mm[Hg] 73 mm[Hg] [facility] Heart rate 88 /min 88 /min [facility] Body temperature 36.44 Blanka 36.44 Blanka [facility] Respiratory rate 20 /min 20 /min [facility] Oxygen saturation in Arterial blood by Pulse oximetry 97 % 97 % [facility] Body height 165.1 cm 165.1 cm [facility] Body weight 81.647 kg 81.647 kg [facility] Body mass index (BMI) [Ratio] 29.95 kg/m2 29.95 kg/m2 [facility] Systolic blood pressure 152 mm[Hg] 152 mm[Hg] Health system Diastolic blood pressure 90 mm[Hg] 90 mm[Hg] [facility] Heart rate 58 /min 58 /min [facility] Body height 165.1 cm 165.1 cm [facility] Body weight 81.375 kg 81.375 kg [facility] Body mass index (BMI) [Ratio] 29.85 kg/m2 29.85 kg/m2 [facility] Oxygen saturation in Arterial blood by Pulse oximetry 98 % 98 % [facility] [place] body weight 125 [lb_av] 125 [lb_av] [facility] ([facility]) Heart rate 71 /min 71 /min [facility] ([facility]) Respiratory rate 18 /min 18 /min [facility] ( [facility]) Body temperature 98.8 [degF] 98.8 [degF] [facility] ([facility]) Oxygen saturation in Arterial blood by Pulse oximetry 99 % 99 % [facility] ([facility]) Systolic blood pressure 128 mm[Hg] 128 mm[Hg] M [facility] ([facility]) Diastolic blood pressure 78 mm[Hg] 78 mm[Hg] [facility] ([facility]) Body height 65 [in_i] 65 [facility]in_i[facility] 5'5" Body weight 180.25 [lb_av] 180.25 [lb_av] [facility] ([facility]) Body mass index (BMI) [Ratio] 30.0 kg/m2 30.0 k g/m2 [facility] ([facility]) Systolic blood pressure 140 mm[Hg] 140 mm[Hg] M [facility] ([facility]) Diastolic blood pressure 80 mm[Hg] 80 mm[Hg] [facility] ([facility]) Body height 65 [in_i] 65 [in_i] [facility] ([facility]) 5'5" [place] body weight 125 [lb_av] 125 [lb_av] [facility] ([facility]) Body weight 174.00 [lb_av] 174.00 [lb_av] [facility] ([facility]) Body mass index (BMI) [Ratio] 29.0 kg/m2 29.0 k g/m2 [facility] ([facility]) Heart rate 77 /min 77 /min [facility] ([facility]) Respiratory rate 12 /min 12 /min [facility] ( [facility]) Body temperature 97.4 [degF] 97.4 [degF] [facility] ([facility]) Oxygen saturation in Arterial blood by Pulse oximetry 99 % 99 % [facility] ([facility]) Body weight 172.25 [lb_av] 172.25 [lb_av] [facility] ([facility]) Body temperature 97.9 [degF] 97.9 [degF] [facility] ([facility]) Systolic blood pressure 130 mm[Hg] 130 mm[Hg] M [facility] ([facility]) Diastolic blood pressure 80 mm[Hg] 80 mm[Hg] [facility] ([facility]) Body height 65 [in_i] 65 [in_i] [facility] ([facility]) 5'5" Body mass index (BMI) [Ratio] 28.7 kg/m2 28.7 k g/m2 [facility] ([facility]) Heart rate 63 /min 63 /min [facility] ([facility]) Respiratory rate 16 /min 16 /min [facility] ( [facility]) Oxygen saturation in Arterial blood by Pulse oximetry 98 % 98 % [facility] ([facility]) [place] body weight 125 [lb_av] 125 [lb_av] EVONNE [facility] ([facility])
[2021-03-05] MEDS ORDERED: propofoL 200 MG/20 ML VIAL As Ordered ONE (11:24)
--- NOTE | 2021-03-05 11:36 | ROOR ---
Patient Name: Kayla Partida Procedure Date: 03/05/2021 11:17 AM Date of : 1975 Age: 45 Room: [facility] Gender: Female Note Status: Finalized Procedure: Colonoscopy Indications: Screening for colorectal malignant neoplasm Providers: Stefano Varghese Jr, MD Referring MD: Leona JAMES DO Requesting Provider: Medicines: Propofol per Anesthesia Complications: No immediate complications. Procedure: Pre-Anesthesia Assessment: - Prior to the procedure, a History and Physical was performed, and patient medications and allergies were reviewed. The patient is competent. The risks and benefits of the procedure and the sedation options and risks were discussed with the patient. All questions were answered and informed consent was obtained. Patient identification and proposed procedure were verified by the physician and the nurse in the pre-procedure area and in the procedure room. Mental Status Examination: alert and oriented. Airway Examination: normal oropharyngeal airway and neck mobility. Respiratory Examination: clear to auscultation. CV Examination: normal. ASA Grade Assessment: II - A patient with mild systemic disease. After reviewing the risks and benefits, the patient was deemed in satisfactory condition to undergo the procedure. The anesthesia plan was to use moderate sedation / analgesia (conscious sedation). Immediately prior to administration of medications, the patient was re-assessed for adequacy to receive sedatives. The heart rate, respiratory rate, oxygen saturations, blood pressure, adequacy of pulmonary ventilation, and response to care were monitored throughout the procedure. The physical status of the patient was re-assessed after the procedure. The Colonoscope was introduced through the anus and advanced to the cecum, identified by appendiceal orifice and ileocecal valve. The colonoscopy was performed without difficulty. The patient tolerated the procedure well. The quality of the bowel preparation was adequate. Findings: The rectum, recto-sigmoid colon, sigmoid colon, descending colon, transverse colon, ascending colon, cecum, appendiceal orifice and ileocecal valve appeared normal. Impression: - The rectum, recto-sigmoid colon, sigmoid colon, descending colon, transverse colon, ascending colon, cecum, appendiceal orifice and ileocecal valve are normal. - No specimens collected. Recommendation: - Discharge patient to home (ambulatory). - Repeat colonoscopy in 10 years for screening purposes. Procedure Code(s): --- Professional --- 21171, Colonoscopy, flexible; diagnostic, including collection of specimen(s) by brushing or washing, when performed (separate procedure) Diagnosis Code(s): --- Professional --- Z12.11, Encounter for screening for malignant neoplasm of colon CPT copyright 2019 [employer]. All rights reserved. The codes documented in this report are preliminary and upon safety relief valve technician review may be revised to meet current compliance requirements. Stefano Varghese MD Stefano Varghese Jr, MD 03/05/2021 11:35:56 AM Electronically signed by Stefano Varghese Jr, MD Number of Addenda: 0 Note Initiated On: 03/05/2021 11:17 AM Estimated Blood Loss: Estimated blood loss: none.
[2021-03-05 11:55] VITALS: BP 143/90
== END 2021-03-05 12:05 | disposition home or self-care (01) ==
LOC: M OPP 10:15
PROVIDERS: ATTEND Surgery
DX: Z12.11 Encounter for screening for malignant neoplasm of colon (principal); I10 Essential (primary) hypertension; Z79.899 Other long term (current) drug therapy

== ENCOUNTER → 2021-12-09 | Outpatient (CLI) | payer BC, OTHER ==
[~2021-12-09] MED LIST changes: -NS 1,000 ML IV ONE
[2021-12-09 17:43] LABS: BASO % 0.7 % (0.0-1.0); EOS # 0.2 10^3/uL (0.0-0.5); EOS % 3.2 % (0.0-3.0); HEMATOCRIT 38.1 % (36.0-47.0); HEMOGLOBIN 12.6 g/dl (12.0-15.5); LYMPH # 1.6 10^3/uL (1.5-5.0); LYMPH % 29.1 % (24.0-44.0); MEAN CORPUSCULAR HEMOGLOBIN 30.5 pg (27.0-33.0); MEAN CORPUSCULAR HGB CONC 33.1 g/dl (32.0-36.5); MEAN CORPUSCULAR VOLUME 92.3 fl (80.0-96.0); MONO # 0.4 10^3/uL (0.0-0.8); MONO % 7.2 % (2.0-8.0); NEUTROPHILS # 3.3 10^3/uL (1.5-8.5); NEUTROPHILS % 59.3 % (36.0-66.0); PLATELET COUNT, AUTOMATED 258 10^3/uL (150-450); RED BLOOD COUNT 4.13 10^6/uL (4.00-5.40); WHITE BLOOD COUNT 5.6 10^3/uL (4.0-10.0)
[2021-12-09 17:55] LABS: BLOOD UREA NITROGEN 16 MG/DL (7-18); CALCIUM LEVEL 9.5 MG/DL (8.5-10.1); CARBON DIOXIDE LEVEL 29 MEQ/L (21-32); CHLORIDE LEVEL 107 MEQ/L (98-107); CREATININE FOR GFR 0.68 MG/DL (0.55-1.30); GLOMERULAR FILTRATION RATE > 60.0 (>58); GLUCOSE, FASTING 84 MG/DL (70-100); POTASSIUM SERUM 4.2 MEQ/L (3.5-5.1); SODIUM LEVEL 139 MEQ/L (136-145)
[2021-12-09 18:44] LABS: TOTAL 25(OH) VITAMIN D 63.6 NG/ML (30.0-100.0)
[2021-12-09 18:45] LABS: VITAMIN B12 LEVEL 294 PG/ML (247-911)
== END ==
LOC: M PLALAB 14:25
PROVIDERS: ATTEND Family Medicine
DX: I10 Essential (primary) hypertension (principal)

== ENCOUNTER → 2022-01-05 | Outpatient (CLI) | payer BC, OTHER ==
[2022-01-05 15:04] LABS: ESTRADIOL 90.2 PG/ML; FOLLICLE STIMULATING HORMONE 11.9 mIU/mL; LUTEINIZING HORMONE 9.7 mIU/mL; PROGESTERONE 0.33 NG/ML
[2022-01-06 12:11] LABS: TESTOSTERONE FREE (DIRECT) 1.4 pg/mL (0.0-4.2)
== END ==
LOC: M PLALAB 10:33
PROVIDERS: ATTEND Obstetrics & Gynecology
DX: N95.1 Menopausal and female climacteric states (principal)

== ENCOUNTER → 2022-02-22 | Outpatient (CLI) | payer BC, OTHER ==
[2022-02-22 16:27] LABS: ESTRADIOL 79.4 PG/ML; LUTEINIZING HORMONE 13.2 mIU/mL; PROGESTERONE 0.21 NG/ML
[2022-02-23 18:10] LABS: TESTOSTERONE FREE (DIRECT) 1.3 pg/mL (0.0-4.2)
== END ==
LOC: M PLALAB 11:25
PROVIDERS: ATTEND Obstetrics & Gynecology
DX: F52.0 Hypoactive sexual desire disorder (principal); E34.9 Endocrine disorder, unspecified; N95.1 Menopausal and female climacteric states

== ENCOUNTER → 2022-04-07 | Outpatient (REF) ==
[2022-04-07 13:37] LABS: RSV AMPLIFICATION NEGATIVE (NEGATIVE)
== END ==
LOC: M LABSMTC 09:13
PROVIDERS: ATTEND Family Medicine
DX: Z20.818 Contact with and (suspected) exposure to other bacterial communicable diseases (principal)

== ENCOUNTER → 2022-05-07 | Outpatient (CLI) | payer BC ==
[2022-05-07 16:54] LABS: FOLLICLE STIMULATING HORMONE 14.9 mIU/ML; PROGESTERONE 0.21 NG/ML
[2022-05-07 16:59] LABS: ESTRADIOL 109.4 PG/ML
== END ==
LOC: M PLALAB 12:40
PROVIDERS: ATTEND Obstetrics & Gynecology
DX: N95.1 Menopausal and female climacteric states (principal); E34.9 Endocrine disorder, unspecified; F52.0 Hypoactive sexual desire disorder

== ENCOUNTER → 2022-05-11 | Outpatient (CLI) | payer BC, OTHER | LOC: M PLAIMG 09:04 | PROVIDERS: ATTEND Nurse Practitioner | DX: Z12.31 Encounter for screening mammogram for malignant neoplasm of breast (principal); Z90.13 Acquired absence of bilateral breasts and nipples; Z98.82 Breast implant status ==

== ENCOUNTER → 2022-07-07 | Outpatient (CLI) | payer BC, OTHER ==
[2022-07-07 18:26] LABS: ESTRADIOL 73.6 PG/ML; FOLLICLE STIMULATING HORMONE 20.9 mIU/ML
[2022-07-07 18:27] LABS: LUTEINIZING HORMONE 12.6 mIU/ML; PROGESTERONE 0.37 NG/ML
[2022-07-09 15:12] LABS: TESTOSTERONE FREE (DIRECT) 0.6 pg/mL (0.0-4.2)
== END ==
LOC: M PLALAB 15:29
PROVIDERS: ATTEND Obstetrics & Gynecology
DX: N95.1 Menopausal and female climacteric states (principal); E34.9 Endocrine disorder, unspecified; F52.0 Hypoactive sexual desire disorder

== ENCOUNTER → 2023-12-13 | Outpatient (CLI) | payer OTHER, BC ==
[~2023-12-13] MED LIST changes: -ZOLP12.518 PO; +ZOLP12.535 PO
[2023-12-13 13:41] LABS: BASO # 0.1 10^3/uL (0.0-0.2); EOS # 0.2 10^3/uL (0.0-0.5); EOS % 4.5 % (0.0-3.0); HEMATOCRIT 38.1 % (36.0-47.0); HEMOGLOBIN 12.9 g/dl (12.0-15.5); LYMPH # 1.6 10^3/uL (1.5-5.0); LYMPH % 33.1 % (24.0-44.0); MEAN CORPUSCULAR HEMOGLOBIN 31.1 pg (27.0-33.0); MEAN CORPUSCULAR HGB CONC 33.9 g/dl (32.0-36.5); MEAN CORPUSCULAR VOLUME 91.8 fl (80.0-96.0); MONO # 0.4 10^3/uL (0.0-0.8); MONO % 7.5 % (2.0-8.0); NEUTROPHILS # 2.6 10^3/uL (1.5-8.5); NEUTROPHILS % 53.5 % (36.0-66.0); PLATELET COUNT, AUTOMATED 258 10^3/uL (150-450); RED BLOOD COUNT 4.15 10^6/uL (4.00-5.40); WHITE BLOOD COUNT 4.9 10^3/uL (4.0-10.0)
[2023-12-13 13:54] LABS: HEMOGLOBIN A1c 5.1 % (4.0-6.0)
[2023-12-13 13:59] LABS: C REACTIVE PROTEIN QUANTITATIV < 0.40 MG/DL (<1.0)
[2023-12-13 14:00] LABS: THYROXINE (T4) 8.5 UG/DL (4.5-10.9)
[2023-12-13 14:01] LABS: ALBUMIN 3.6 G/DL (3.2-5.2); ALKALINE PHOSPHATASE 56 U/L (46-116); ALT/SGPT 18 U/L (7.0-40); AST/SGOT 11 U/L (<34); BILIRUBIN,DIRECT 0.2 MG/DL (<0.4); BILIRUBIN,TOTAL 0.6 MG/DL (0.3-1.2); BLOOD UREA NITROGEN 18 MG/DL (9-23); CALCIUM LEVEL 9.2 MG/DL (8.5-10.1); CARBON DIOXIDE LEVEL 28 MMOL/L (20-31); CHLORIDE LEVEL 109 MMOL/L (98-107); CHOLESTEROL LEVEL 225 MG/DL (<200); CHOLESTEROL RISK RATIO 4.01 (<5); CREATININE FOR GFR 0.68 MG/DL (0.55-1.30); GLOMERULAR FILTRATION RATE > 60.0 (>58); GLUCOSE, FASTING 93 MG/DL (60-100); LDL CHOLESTEROL 143.6 MG/DL (<100); PHOSPHORUS LEVEL 3.4 MG/DL (2.5-4.9); POTASSIUM SERUM 4.4 MMOL/L (3.5-5.1); SODIUM LEVEL 143 MMOL/L (136-145); THYROID STIMULATING HORMONE 1.384 uIU/ML (0.55-4.78); TRIGLYCERIDES LEVEL 127 MG/DL (<150)
== END ==
LOC: M PLALAB 11:02
PROVIDERS: ATTEND Nurse Practitioner Family
DX: E66.8 Other obesity (principal)

== ENCOUNTER → 2023-12-23 | Outpatient (CLI) | payer OTHER, BC ==
[~2023-12-23] MED LIST changes: +PROHANCE 279.3MG/ML 15ML VIAL ONE; +PROHANCE 279.3MG/ML 5ML VIAL ONE
== END ==
LOC: M PLAIMG 10:11
PROVIDERS: ATTEND Nurse Practitioner Adult Health
DX: R92.8 Other abnormal and inconclusive findings on diagnostic imaging of breast (principal); Z90.13 Acquired absence of bilateral breasts and nipples; D05.12 Intraductal carcinoma in situ of left breast; Z98.82 Breast implant status; N63.20 Unspecified lump in the left breast, unspecified quadrant
CPT/HCPCS: A9576; C8908

== ENCOUNTER → 2024-06-07 | Outpatient (REF) ==
[~2024-06-07] MED LIST changes: -PROHANCE 279.3MG/ML 15ML VIAL ONE; -PROHANCE 279.3MG/ML 5ML VIAL ONE
== END ==
LOC: M EMP 10:59
PROVIDERS: ATTEND Family Medicine
DX: Z01.89 Encounter for other specified special examinations (principal)

== ENCOUNTER → 2025-02-11 | Outpatient (CLI) | payer BC, OTHER ==
[~2025-02-11] MED LIST changes: -AMBI10TA PO; +ZOLP-533 PO
== END ==
LOC: M WHC 12:32
PROVIDERS: ATTEND Nurse Practitioner Adult Health
DX: I89.0 Lymphedema, not elsewhere classified (principal)